=== PATIENT | male | born 1950 | race Caucasian/White ===

== ENCOUNTER → 2017-07-15 11:17 | Outpatient (CLI) | payer BC, SELFPAY ==
--- NOTE | 2017-07-15 11:53 | MR_ITS ---
MR lumbar spine wo con, MR 3-d myelogram/MRCP HISTORY: PT states low back pain X1 Month. Rt leg pain ITS.REASON: SCIATICA OF RT SIDE ORDERING PHYSICIAN: Rayray Pal MD PATIENT AGE: 66 years COMPARISON: X-RAY 07/11/12 TECHNIQUE: Standard multiplanar multiecho sequences are performed without contrast. 3-D MIP and myelographic images are also rendered and reviewed FINDINGS: There is normal alignment. The spinal cord ends at the L1-L2 level. There is mild degenerative disc disease at T11-T12 with a small right paracentral/foraminal disc protrusion causing mild right-sided foraminal and lateral recess narrowing. T12-L1, L1-L2, L2-L3, L3-L4 have an unremarkable appearance. L4-L5: Minimal bulging disc along with facet and ligamentum flavum hypertrophy with mild bilateral foraminal narrowing slightly greater on the left abutting the exiting L4 nerve root. L5-S1: Bulging disc with small broad-based central disc protrusion along with mild facet and ligamentum flavum hypertrophy with mild bilateral foraminal narrowing. No extruded herniated disc or canal stenosis. IMPRESSION: 1. There is mild degenerative disc disease at T11-T12 with a small right paracentral/foraminal disc protrusion causing mild right-sided foraminal and lateral recess narrowing 2. L4-L5: Minimal bulging disc along with facet and ligamentum flavum hypertrophy with mild bilateral foraminal narrowing slightly greater on the left abutting the exiting L4 nerve root. 3. L5-S1: Bulging disc with small broad-based central disc protrusion along with mild facet and ligamentum flavum hypertrophy with mild bilateral foraminal narrowing
== END ==
PROVIDERS: Family Provider Family Medicine; PCP Family Medicine; Visit Provider Family Medicine
DX: M54.31 Sciatica, right side (principal)
CPT/HCPCS: 72148; 76376

== ENCOUNTER → 2017-08-05 11:18 | Outpatient (POV) | payer BC, SELFPAY ==
[2017-08-05 11:29] VITALS: BP 141/87; PULSE 87; RESP 18; O2SAT 98
--- NOTE | 2017-08-05 13:27 | HMH.PMCON ---
Assessment and Plan (1) Sacroiliitis Current visit: Yes Status: Chronic Category: Medical Code(s): M46.1 - Sacroiliitis, not elsewhere classified - Assessment and plan all Dx Assessment and Plan for all problems:: We will plan a right SI joint injection for this patient. I believe given symptomology that this would be very beneficial. Patient's tried and failed steroids, anti-inflammatories, occasions along with physical therapy. We will schedule this in sequence insurance approval. Patient does not want to be on long-term medications. This note was dictated using voice recognition software and may contain errors or omissions HPI - Data of Consult Consult date: 08/05/17 Requesting Physician: Su Deleon APRN Primary Care Provider: Rayray Pal MD Family Provider: Julio Pal - Consult Narrative Reason for consult: SI joint pain History of present illness: Mr. De Jesus is a 67 year old male who presents today for consultation in regards to his right hip pain. Patient states that 7 weeks ago he was out chopping wood and began having extreme sharp pain over his right SI joint. Patient has tried and failed steroid pack. Patient also on gabapentin and tramadol this has not seemed to help him much. Patient does not want to take medication. Patient is interested in SI joint injection. I believe that this will be beneficial. CC: Su Deleon APRN [facility] History I have reviewed the patient's past medical history: Yes Medical History: Denies:: Diabetes Mellitus Type 1, Diabetes Mellitus Type 2 Other Medical History: Reports: Arthritis - *Social History Smoking Status: Current every day smoker Tobacco Type: cigarettes # Packs/Day (cigarettes): 2 Alcohol Intake: never Occupational Status: employed Housing: apartment - Psychiatric History Expresses thoughts of harming self/others: None Suicide Plan Description: No Plan *Family Hx:: Unable to obtain Review of Systems - Review of Systems ROS General: no recent weight change, no fever, no sleep disturbances Respiratory: no cough, no shortness of air, no recurring pulmonary infections Cardiovascular/Peripheral Vascular: No chest pain, No palpitations, no edema, no shortness of breath. Gastrointestinal: no incontinence, normal bowel movements reported Genitourinary: no incontinence Musculoskeletal: Right SI joint pain Psychiatric: normal mood/ affect Neurological: [denies weakness in extremities], [denies balance issues] Meds Home Medications Medication Instructions Recorded Confirmed Type Gabapentin [Gabapentin 300mg Cap] 300 mg PO TID 08/05/17 08/05/17 History Tramadol HCl [Ultram Take Home 50 mg PO Q6 08/05/17 08/05/17 History Pack 50mg (10)] Allergies Allergy/AdvReac Type Severity Reaction Status Date / Time benzocaine [BENZOCAINE] Allergy Mild Unverified 02/25/17 15:09 Objective Vital signs: Pulse Resp BP Pulse Ox 87 18 141/87 98 08/05/17 11:29 08/05/17 11:29 08/05/17 11:29 08/05/17 11:29 Narrative: Physical Exam General: Alert and oriented x3, no acute distress, pleasant and cooperative, [on room air] Lungs: Resps E/U, Symmetrical chest expansion, Eyes: PERRL Musculoskeletal: Flexion and extension of lumbar spine somewhat guarded secondary to pain, deep tendon reflexes normal, strength in upper and lower extremities [5/5], antalgic gait noted, positive Nicholas's test on the right side, extreme point tenderness over right SI joint Neurological: speech clear, inventory coordinator equal, no gross sensory deficits Opioid Risk Tool - Opioid Risk Tool-Male Family hx alcohol abuse: N Family hx illegal drugs: N Family hx rx drug abuse: N Personal hx alcohol abuse: N Personal hx illegal drugs: N Personal hx rx drug abuse: N Age: 45+ Hx of sexual abuse: N Mental health issues-ADD,OCD,Bipolar, etc: N
--- NOTE | 2017-08-05 13:38 | P.CONS_ITS ---
Assessment and Plan (1) Sacroiliitis Current visit: Yes Status: Chronic Category: Medical Code(s): M46.1 - Sacroiliitis, not elsewhere classified - Assessment and plan all Dx Assessment and Plan for all problems:: We will plan a right SI joint injection for this patient. I believe given symptomology that this would be very beneficial. Patient's tried and failed steroids, anti-inflammatories, occasions along with physical therapy. We will schedule this in sequence insurance approval. Patient does not want to be on long-term medications. This note was dictated using voice recognition software and may contain errors or omissions HPI - Data of Consult Consult date: 08/05/17 Requesting Physician: Su Deleon APRN Primary Care Provider: Rayray Pal MD Family Provider: Julio Pal - Consult Narrative Reason for consult: SI joint pain History of present illness: Mr. De Jesus is a 67 year old male who presents today for consultation in regards to his right hip pain. Patient states that 7 weeks ago he was out chopping wood and began having extreme sharp pain over his right SI joint. Patient has tried and failed steroid pack. Patient also on gabapentin and tramadol this has not seemed to help him much. Patient does not want to take medication. Patient is interested in SI joint injection. I believe that this will be beneficial. CC: Su Deleon APRN [facility] History I have reviewed the patient's past medical history: Yes Medical History: Denies:: Diabetes Mellitus Type 1, Diabetes Mellitus Type 2 Other Medical History: Reports: Arthritis - *Social History Smoking Status: Current every day smoker Tobacco Type: cigarettes # Packs/Day (cigarettes): 2 Alcohol Intake: never Occupational Status: employed Housing: apartment - Psychiatric History Expresses thoughts of harming self/others: None Suicide Plan Description: No Plan *Family Hx:: Unable to obtain Review of Systems - Review of Systems ROS General: no recent weight change, no fever, no sleep disturbances Respiratory: no cough, no shortness of air, no recurring pulmonary infections Cardiovascular/Peripheral Vascular: No chest pain, No palpitations, no edema, no shortness of breath. Gastrointestinal: no incontinence, normal bowel movements reported Genitourinary: no incontinence Musculoskeletal: Right SI joint pain Psychiatric: normal mood/ affect Neurological: [denies weakness in extremities], [denies balance issues] Meds Home Medications Medication Instructions Recorded Confirmed Type Gabapentin [Gabapentin 300mg Cap] 300 mg PO TID 08/05/17 08/05/17 History Tramadol HCl [Ultram Take Home 50 mg PO Q6 08/05/17 08/05/17 History Pack 50mg (10)] Allergies Allergy/AdvReac Type Severity Reaction Status Date / Time benzocaine [BENZOCAINE] Allergy Mild Unverified 02/25/17 15:09 Objective Vital signs: Pulse Resp BP Pulse Ox 87 18 141/87 98 08/05/17 11:29 08/05/17 11:29 08/05/17 11:29 08/05/17 11:29 Narrative: Physical Exam General: Alert and oriented x3, no acute distress, pleasant and cooperative, [ on room air] Lungs: Resps E/U, Symmetrical chest expansion, Eyes: PERRL Musculoskeletal: Flexion and extension of lumbar spine somewhat guarded secondary to pain, deep tendon reflexes nor
== END ==
PROVIDERS: Family Provider Family Medicine; PCP Family Medicine; Visit Provider Clinical Nurse Specialist Family Health
DX: M46.1 Sacroiliitis, not elsewhere classified (principal)
CPT/HCPCS: 99212

== ENCOUNTER → 2017-09-02 09:31 | Outpatient (POV) | payer BC, SELFPAY ==
[2017-09-02 09:41] VITALS: BP 104/74; PULSE 81; RESP 18; O2SAT 98; BMI 25.1
--- NOTE | 2017-09-02 10:01 | HMH.PAINSOAP ---
[facility] Pain Management SOAP Note Subjective:: Patient is a pleasant 67-year-old white male who presents today for follow-up after right SI joint injection. Patient rates his pain a 1 out of 10 today. He states he is doing very well. Patient has been going to the chiropractor along with doing stretching. Patient states that all of the pain over his right SI has dissipated. Patient states he is having some piriformis pain however that intermittent and tolerable. ROS General: no recent weight change, no fever, no sleep disturbances Respiratory: no cough, no shortness of air, no recurring pulmonary infections Cardiovascular/Peripheral Vascular: No chest pain, No palpitations, no edema, no shortness of breath. Gastrointestinal: no incontinence, normal bowel movements reported Genitourinary: no incontinence Musculoskeletal: Right SI joint pain Psychiatric: normal mood/ affect Neurological: [denies weakness in extremities], [denies balance issues] Objective:: Physical Exam General: Alert and oriented x3, no acute distress, pleasant and cooperative, [on room air] Lungs: Resps E/U, Symmetrical chest expansion, Eyes: PERRL Musculoskeletal: deep tendon reflexes normal, strength in upper and lower extremities [5/5], slightly antalgic gait noted Neurological: speech clear, treating and pumping supervisor equal, no gross sensory deficits Assessment:: Sacroiliitis Plan:: Follow-up with this patient on an as-needed basis. 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 This note was dictated using voice recognition software and may contain errors or omissions
--- NOTE | 2017-09-02 10:05 | P.CONS_ITS ---
[facility] Pain Management SOAP Note Subjective:: Patient is a pleasant 67-year-old white male who presents today for follow-up after right SI joint injection. Patient rates his pain a 1 out of 10 today. He states he is doing very well. Patient has been going to the chiropractor along with doing stretching. Patient states that all of the pain over his right SI has dissipated. Patient states he is having some piriformis pain however that intermittent and tolerable. ROS General: no recent weight change, no fever, no sleep disturbances Respiratory: no cough, no shortness of air, no recurring pulmonary infections Cardiovascular/Peripheral Vascular: No chest pain, No palpitations, no edema, no shortness of breath. Gastrointestinal: no incontinence, normal bowel movements reported Genitourinary: no incontinence Musculoskeletal: Right SI joint pain Psychiatric: normal mood/ affect Neurological: [denies weakness in extremities], [denies balance issues] Objective:: Physical Exam General: Alert and oriented x3, no acute distress, pleasant and cooperative, [ on room air] Lungs: Resps E/U, Symmetrical chest expansion, Eyes: PERRL Musculoskeletal: deep tendon reflexes normal, strength in upper and lower extremities [5/5], slightly antalgic gait noted Neurological: speech clear, copy coordinator equal, no gross sensory deficits Assessment:: Sacroiliitis Plan:: Follow-up with this patient on an as-needed basis. 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 This note was dictated using voice recognition software and may contain errors or omissions
== END ==
PROVIDERS: Family Provider Family Medicine; PCP Family Medicine; Visit Provider Clinical Nurse Specialist Family Health
DX: M46.1 Sacroiliitis, not elsewhere classified (principal)
CPT/HCPCS: 99212

== ENCOUNTER → 2018-08-13 13:14 | Outpatient (CLI) | payer BC, SELFPAY ==
--- NOTE | 2018-08-13 13:17 | CT_ITS ---
CT lung screening EXAM: CT LUNG LOW DOSE WO CONTRAST HISTORY: 80 pack-year smoking history, asymptomatic for lung cancer ITS.REASON: CURRENT TOBACCO USE ORDERING PHYSICIAN: Rayray Pal MD PATIENT AGE: 68 years COMPARISON: None TECHNIQUE: The exam was performed on a GE Light Speed [address] scanner using 2.90 mGy CTDI. A low dose helical CT CHEST was performed on a multi-detector scanner. All CT scans at the facility use one or more dose reduction, viz: automated exposure control, ma/kV adjustment per patient size (including targeted exams where dose is matched to indication, i.e. head), or iterative reconstruction technique. The LDCT was performed in a facility that meets the criteria for the screening program. Data regarding this exam was submitted to ACR which is an approved registry. The order for this exam indicates that it came as a result of a lung cancer screening counseling shard decision-making visit that included all the elements required of such a visit including smoking cessation. The radiologist interpreting this exam meets the [facility] criteria for the LDCT lung cancer screening program. The exam is reported using the Lung-RADS classification scale and reported to the ACR registry. NOTE: This study was performed for the specific purposes of lung cancer screening and is not an alternative to diagnostic chest CT. RADIATION DOSE: CTDI vol(CT dose Index-volume) = 2.90mG DLP (Dose Length Product) = 107.59 mGcm FINDINGS: Biapical fibrotic changes are present. There is COPD with centrilobular emphysema. There is an 9 x 8 mm somewhat irregular solid appearing nodule within the right lower lobe laterally axial image #50. There are few scattered small axillary lymph nodes measuring up to 2 x 1 cm on the right and 2.1 x 1.2 cm on the left. There is mild wedging involving T8 vertebral body which appears chronic. IMPRESSION: 1. Lung RADS Category: 4 a, mildly suspicious. 2. Other findings: COPD, centrilobular emphysema, scattered fibrotic change. Mild axillary adenopathy. RECOMMENDATIONS: Suggest short-term follow-up regarding the 9 x 8 mm nodule in the right lower lobe. Recommend PET/CT or diagnostic CT without and with contrast in 3 months.
== END ==
PROVIDERS: PCP Family Medicine; Visit Provider Family Medicine
DX: Z12.2 Encounter for screening for malignant neoplasm of respiratory organs (principal); Z87.891 Personal history of nicotine dependence

== ENCOUNTER → 2019-04-03 09:05 | Outpatient (CLI) | payer BC, SELFPAY ==
--- NOTE | 2019-04-03 09:13 | XR_ITS ---
PROCEDURE: XR KNEE RT 3V CLINICAL INDICATION: sprain of other ligament of right knee COMPARISON: No exams were available for comparison FINDINGS: No fracture or dislocation. No lytic or blastic change. There is normal mineralization. There is moderate medial compartment osteoarthritis. Other findings:There is mild soft tissue swelling over the medial knee. IMPRESSION: No acute bone findings. Medial osteoarthritis. Dictated by: Ike King 04/03/2019 11:30 Electronically signed by Ike King in [place] 04/03/2019 11:30
== END ==
PROVIDERS: PCP Psychiatry & Neurology Sleep Medicine; Visit Provider Psychiatry & Neurology Sleep Medicine
DX: S83.8X1A Sprain of other specified parts of right knee, initial encounter (principal)
CPT/HCPCS: 73562

== ENCOUNTER → 2019-08-04 10:20 | Outpatient (CLI) | payer BC, SELFPAY ==
[2019-08-04 11:32] LABS: Basophils % 0.6 % (0.1-2.0); Eosinophils # 0.3 K/mm3 (0.0-0.4); Eosinophils % 4.3 % (0.1-12.0); Hematocrit 42.6 % (42.0-52.0); Hemoglobin 14.4 g/dL (14.1-18.0); Lymphocytes % 34.1 % (10-50); Mean Corpuscular HGB Conc 33.9 g/dL (31.8-35.4); Mean Corpuscular Hemoglobin 33.4 pg (27.0-31.2); Mean Corpuscular Volume 98.7 fl (80-94); Mean Platelet Volume 8.2 fl (7.4-10.4); Monocytes # 0.5 K/mm3 (0.1-1.0); Monocytes % 7.8 % (1.7-9.3); Neutrophils # 3.2 K/mm3 (1.8-7.8); Neutrophils % 53.2 % (37.0-80.0); Platelet Count 262 K/mm3 (142-424); Red Blood Count 4.32 M/mm3 (4.60-6.20); Red Cell Distribution Width 13.3 % (11.5-17.5)
[2019-08-04 12:58] LABS: Alanine Aminotransferase 18 U/L (12-78); Albumin Level 4.5 g/dl (3.5-5.0); Albumin/Globulin Ratio 1.5 (1.1-1.8); Alkaline Phosphatase 84 U/L (38-126); Anion Gap 9.2 mEq/L (5-15); Aspartate Amino Transferase 29 U/L (17-59); Bilirubin,Total 0.6 mg/dl (0.2-1.3); Blood Urea Nitrogen 12 mg/dl (9-20); Calcium 9.7 mg/dl (8.4-10.2); Carbon Dioxide 26 mmol/L (22.0-30.0); Chloride 106 mmol/L (98-107); Estimated Glomerular Filt Rate 96 ml/min (>60); GFR (African American) 116 ML/MIN (>60); Glucose 72 mg/dl (74-100); Potassium 4.2 mmoL/L (3.5-5.1); Sodium 137 mmol/L (136-145); Total Protein,Serum 7.5 g/dl (6.3-8.2)
[2019-08-04 13:04] LABS: C-Reactive Protein 4.2 mg/L (0-4)
[2019-08-04 13:16] LABS: Hemoglobin A1C 5.1 % (4.0-6.0)
[2019-08-04 13:37] LABS: Erythrocyte Sedimentation Rate 25 mm/hr (0-20)
== END ==
PROVIDERS: Visit Provider Nurse Practitioner
DX: Z51.89 Encounter for other specified aftercare (principal); B35.1 Tinea unguium
CPT/HCPCS: 36415; 80053; 83036; 85025; 85651; 86140; 87102; 87206; 87220

== ENCOUNTER → 2021-08-23 10:56 | Outpatient (CLI) | payer MEDICARE, SELFPAY ==
--- NOTE | 2021-08-23 11:02 | XR_ITS ---
FINAL REPORT CLINICAL HISTORY: PUNCTURE WOUND OF RT GREAT TOE, NAIL WENT THROUGH TOE 3 DAYS AGO, REDNESS, SWELLING AND PAIN FINDINGS: TOES MINIMUM 2 VIEWS 3 views were obtained of the right toes. There is no acute fracture or dislocation. There is mild degenerative change. There is no acute soft tissue abnormality. No foreign body is identified. IMPRESSION: No acute bony abnormality. No foreign body identified. Reviewed, Interpreted and Dictated by Manuelito Glass III, MD Transcribed by Malika Michael Authenticated and [facility]
== END ==
PROVIDERS: PCP Family Medicine; Visit Provider Nurse Practitioner
DX: S91.131A Puncture wound without foreign body of right great toe without damage to nail, initial encounter (principal)
CPT/HCPCS: 73660

== ENCOUNTER → 2021-11-16 07:32 | Outpatient (CLI) | payer MEDICARE, SELFPAY ==
--- NOTE | 2021-11-16 07:38 | CT_ITS ---
FINAL REPORT CLINICAL HISTORY: H/O NICOTINE DEPENDENCE COMPARISON: 08/13/2018 FINDINGS: CTDI vol (mGy): 2.[address] images of the chest were obtained using the low-dose protocol for screening. There is no evidence of mediastinal or hilar mass or adenopathy. No axillary mass or adenopathy is identified. On the lung window images, scarring is seen, greatest at the lung apices. There are several stable, bilateral pulmonary nodules, including a nodule measuring up to 6 mm in the right lower. Other, smaller nodules are also unchanged. No coronary artery calcifications are noted. IMPRESSION: No change in bilateral pulmonary nodules. Lung RADS category 1 . Recommend 12 month followup low-dose CT for further evaluation. Reviewed, Interpreted and Dictated by Manuelito Glass III, MD Transcribed by Yue Marshall Authenticated and . [facility]
--- NOTE | 2021-11-16 07:38 | US_ITS ---
FINAL REPORT CLINICAL HISTORY: AAA screening, hypertension FINDINGS: Limited sonographic images were obtained of the abdomen to evaluate the abdominal aorta and iliac arteries. The abdominal aorta measures up to 2.1 cm in greatest dimension. The iliac arteries are within normal limits. IMPRESSION: No evidence of abdominal aortic aneurysm. Reviewed, Interpreted and Dictated by Manuelito Glass III, MD Transcribed by Yue Marshall Authenticated and [facility]
== END ==
PROVIDERS: PCP Family Medicine; Visit Provider Family Medicine
DX: Z87.891 Personal history of nicotine dependence (principal); Z12.2 Encounter for screening for malignant neoplasm of respiratory organs; Z13.6 Encounter for screening for cardiovascular disorders
CPT/HCPCS: 71271; 76770

== ENCOUNTER → 2021-12-03 06:20 | Outpatient (CLI) | payer MEDICARE, SELFPAY | PROVIDERS: PCP Nurse Practitioner; Visit Provider Nurse Practitioner | DX: L02.212 Cutaneous abscess of back [any part, except buttock and flank] (principal); L03.312 Cellulitis of back [any part except buttock and flank]; B95.7 Other staphylococcus as the cause of diseases classified elsewhere | CPT/HCPCS: 87070; 87186; 87205 ==

== ENCOUNTER → 2023-02-13 19:31 | Outpatient (CLI) | payer MEDICARE, SELFPAY ==
[2023-02-13 19:59] LABS: Basophils # 0.1 K/mm3 (0-0.2); Eosinophils # 0.1 K/mm3 (0.0-0.4); Eosinophils % 1.1 % (0.1-12.0); Hematocrit 44.8 % (42.0-52.0); Hemoglobin 14.9 g/dL (14.1-18.0); Lymphocytes # 1.8 K/mm3 (0.7-4.5); Lymphocytes % 29.3 % (10-50); Mean Corpuscular HGB Conc 33.3 g/dL (31.8-35.4); Mean Corpuscular Hemoglobin 34.5 pg (27.0-31.2); Mean Corpuscular Volume 103.8 fl (80-94); Mean Platelet Volume 10.1 fl (7.4-10.4); Monocytes # 0.5 K/mm3 (0.1-1.0); Monocytes % 7.8 % (1.7-9.3); Neutrophils # 3.7 K/mm3 (1.8-7.8); Neutrophils % 60.8 % (37.0-80.0); Platelet Count 304 K/mm3 (142-424); Red Blood Count 4.32 M/mm3 (4.60-6.20); Red Cell Distribution Width 13.1 % (11.5-17.5); White Blood Count 6.2 K/mm3 (4.8-10.8)
[2023-02-13 21:16] LABS: Cholesterol 193 mg/dl (140-200); HDL Cholesterol 97 mg/dl (40-60); Triglycerides 52 mg/dl (30-150); VLDL Cholesterol 10 mg/dL (0-40)
[2023-02-13 21:27] LABS: C-Reactive Protein 1.6 mg/L (0-4); Direct LDL Cholesterol 91.75 mg/dL (100-129)
[2023-02-13 21:48] LABS: Prostate Specific Ag Screen 0.3 ng/ml (0.0-4.0); Thyroid Stimulating Hormone 2.45 uIU/mL (0.465-4.68)
[2023-02-13 22:06] LABS: Hemoglobin A1C 5.4 % (4.0-6.0)
== END ==
PROVIDERS: PCP Nurse Practitioner; Visit Provider Nurse Practitioner
DX: E78.5 Hyperlipidemia, unspecified (principal); J44.9 Chronic obstructive pulmonary disease, unspecified; M19.90 Unspecified osteoarthritis, unspecified site; Z12.5 Encounter for screening for malignant neoplasm of prostate; Z79.899 Other long term (current) drug therapy
CPT/HCPCS: 80061; 83036; 84443; 85025; 86140; G0103

== ENCOUNTER → 2023-02-14 09:03 | Outpatient (CLI) | payer MEDICARE, SELFPAY ==
[2023-02-14 21:02] LABS: Creatinine,Urine Random 41 mg/dL (Not Estab.); Microalbumin < 6.000 mg/L (0-16.7)
== END ==
PROVIDERS: PCP Nurse Practitioner; Visit Provider Nurse Practitioner
DX: E78.5 Hyperlipidemia, unspecified (principal); J44.9 Chronic obstructive pulmonary disease, unspecified; M19.90 Unspecified osteoarthritis, unspecified site; Z72.0 Tobacco use
CPT/HCPCS: 82043; 82570

== ENCOUNTER → 2023-02-21 15:10 | Outpatient (CLI) | payer MEDICARE, SELFPAY ==
--- NOTE | 2023-02-21 15:10 | CT_ITS ---
FINAL REPORT TECHNIQUE: Axial CT images of the chest were obtained without contrast. Low-dose protocol was utilized. This study was performed with techniques to keep radiation doses as low as reasonably achievable (ALARA). Individualized dose reduction techniques using automated exposure control or adjustment of mA and/or kV according to the patient's size were employed. CLINICAL HISTORY: lung cancer screening smoker, 3 ppd x 40 years COMPARISON: 11/16/2021 FINDINGS: CT CHEST WITHOUT, LOW DOSE SCREENING CT Di Vol: 2.90 mGy DLP: 109.42 mGy*cm There is no axillary, mediastinal, or hilar adenopathy. The heart size is normal. There is no pleural or pericardial effusion. The lung windows show a stable nodule in the periphery of the right lower lobe best seen on image 50 of series 3. There is a tiny nodule in the periphery of the right upper lobe measuring 2 mm best seen on image 38 of series 3.. There is biapical pleural and parenchymal scarring. Scarring is noted at the lung bases. Nodular density previously noted in the posterior right upper lobe is less well-seen on today's exam. Limited images of the upper abdomen demonstrate no acute findings. IMPRESSION: Stable nodules in the periphery of the right upper lobe and right lower lobe. Biapical pleural-parenchymal scarring. LR Category 1: 12 month follow-up low-dose chest CT is recommended. Reviewed, Interpreted and Dictated by Jim Gutierrez MD Transcribed by Renee Elias Authenticated and . [facility]
== END ==
PROVIDERS: PCP Nurse Practitioner; Visit Provider Nurse Practitioner
DX: F17.210 Nicotine dependence, cigarettes, uncomplicated (principal); R91.1 Solitary pulmonary nodule; Z12.2 Encounter for screening for malignant neoplasm of respiratory organs
CPT/HCPCS: 71271

== ENCOUNTER 2023-08-25 10:10 | Outpatient (CLI) | payer MEDICARE, SELFPAY ==
--- NOTE | 2023-08-25 10:16 | XR_ITS ---
FINAL REPORT CLINICAL HISTORY: right low back pain COMPARISON: None FINDINGS: No fracture is identified. Disc spaces are well-preserved. Alignment is normal. Mild facet arthropathy is present. IMPRESSION: Mild lumbar facet arthropathy, no acute bony abnormality identified. Reviewed, Interpreted and Dictated by Rayray Espitia MD Transcribed by Elisa Dumont Authenticated and [facility]
--- NOTE | 2023-08-25 10:16 | XR_ITS ---
FINAL REPORT TECHNIQUE: 1 view CLINICAL HISTORY: right low back pain FINDINGS: Examination shows moderate amount of stool throughout the colon. There is no evidence of mechanical bowel obstruction. There is a small metallic density overlying the right bony pelvis, that may represent artifact. No obvious free air is seen. IMPRESSION: Stool-filled colon as above Reviewed, Interpreted and Dictated by Rayray Espitia MD Transcribed by Elisa Dumont Authenticated and [facility]
== END 2023-08-25 23:59 | disposition home or self-care (01) ==
LOC: LAB 10:11
PROVIDERS: PCP Family Medicine; Visit Provider Nurse Practitioner
DX: M54.50 Low back pain, unspecified (principal); M62.830 Muscle spasm of back; R82.79 Other abnormal findings on microbiological examination of urine
CPT/HCPCS: 72100; 74018; 87086

== ENCOUNTER 2023-09-18 07:33 | Outpatient (CLI) | payer MEDICARE, SELFPAY ==
--- NOTE | 2023-09-18 07:34 | US_ITS ---
FINAL REPORT CLINICAL HISTORY: distended abd COMPARISON: None FINDINGS: RENAL ULTRASOUND Ultrasound images of the kidneys were obtained. Limited images of the liver parenchyma demonstrates normal echogenicity. Spleen measures 9.6 cm. The right kidney measures 12.1 cm in length. It is normal echogenicity. There is no hydronephrosis. The left kidney measures 12.1 cm in length. It is normal echogenicity. There is no hydronephrosis. IMPRESSION: Normal renal ultrasound. Reviewed, Interpreted and Dictated by Manuelito Glass III, MD Transcribed by Renee Elias Authenticated and [facility]
--- NOTE | 2023-09-18 07:34 | US_ITS ---
FINAL REPORT CLINICAL HISTORY: Right upper quadrant pain COMPARISON: None FINDINGS: Sonographic images of the right upper quadrant were obtained. The pancreas is partially obscured.The liver has an unremarkable appearance.The gallbladder appears normal without evidence of gallstones.There is no evidence of biliary ductal dilatation.The common duct measures 4mm. Limited images of the right kidney are unremarkable. IMPRESSION: Unremarkable right upper quadrant ultrasound. Reviewed, Interpreted and Dictated by Manuelito Glass III, MD Transcribed by Renee Elias Authenticated and . [facility]
== END 2023-09-18 23:59 | disposition home or self-care (01) ==
LOC: RAD 07:34
PROVIDERS: PCP Family Medicine; Visit Provider Family Medicine
DX: M54.9 Dorsalgia, unspecified (principal)
CPT/HCPCS: 76705; 76770

== ENCOUNTER 2023-10-22 08:00 | Outpatient (RCR) | payer MEDICARE, SELFPAY ==
--- NOTE | 2023-09-29 09:38 | HMH.PTOPEV ---
PT Outpatient Evaluation Rehab PT Outpatient Evaluation Start: 09/29/23 09:04 Freq: Status: Active Protocol: Document 09/29/23 09:05 MACARENA (Rec: 09/29/23 09:37 MACARENA [id number]) E-signed By Tish Villegas, PT Outpatient Therapy Subjective History Subjective History Pt is a 73 y/o male who reports onset of right-sided low back pain ~6 weeks ago after repetitive lifting of power generators. Pt reports pain is localized to the right low back and is worse in the morning time. Pt reports pain often wakes him up at night and impairs his sleep. Pt states he gets a tingling sensation of the right low back in the morning that improves throughout the day. Pt denies distal symptoms/ paresthesia or b/b dysfunction . Pt reports he had a lumbar spine xray on 08/25/23 with impression of Mild lumbar facet arthropathy, no acute bony abnormality identified. Pt also reports he had an ultrasound of his kindeys and gallbladder without significant findings. Pt reports he was prescribed muscle relaxers, pain killers and steroids. Pt reports no change in pain/symptoms since onset. Pt reports he now only uses heat and prescribed Ibuprofen which help symptoms minimally. Pt also reports pain improves with walking and standing. Pt reports history of low back surgery years ago to remove a bone spur. Pt denies further comorbidities to report. Occupation: contractor/ control equipment electrician Core strength: 4-/5 New diagnosis of cancer in past 12 No months? Chief Complaint Pain Symptom Type Ache,Sharp,Dull,Tingling Symptoms Relieved By Rest/Positioning,Heat, Prescription Meds Symptoms Aggravated By Sitting,Bending/Stooping, Lifting Prior Functional Limitations None Current Functional Limitations Lifting,Sleeping,Sitting, Recreation Activity,Bending/ Stooping Symptom Description Constant but Variable Level of pain today (0-10) 4 Pain scale - at its best (0-10) 2 Pain scale - at its worst (0-10) 8 Lumbopelvic Eval Posture Lumbar Spine Posture Standing Position Decreased Lordosis Palapation tenderness right lumbar spinal tenderness Yes: L3-4 paraspinal tenderness Yes buttock tenderness Yes: piriformis Lumbar/Sacral Palpation Findings Tenderness Lumbar/Sacral Palpation Overall Comment 2/3 TTP of R QL Accessory Movement L-spine Vertebrae Accessory Movements Central P/A [place],Right P/A that Elicit Symptoms [place] L3 bilateral L4 bilateral Range of Motion Lumbar Spine Active Flexion Range of 50 Motion (degrees) Lumbar Spine Active Extension Range of 25 Motion (degrees) Left Lumbar Spine Lateral Flexion Active 15 Range of Motion (degrees) Right Lumbar Spine Lateral Flexion 20 Active Range of Motion (degrees) Manual Muscle Test Right Knee Extension Strength Grade 5 Normal Knee Flexion Strength Grade 5 Normal Hip Flexion Strength Grade 5 Normal Hip Abduction Strength Grade 4 Good Hip Adduction Strength Grade 4 Good Hip Extension Strength Grade 4 Good Ankle Dorsiflexion Strength Grade 5 Normal Altered Sensation Bilateral Comment equal and intact to light touch sensation bilaterally Special Tests Hip Ashish (DANIELLA) Test Positive Right Sciatic Nerve Tension Test Negative Right Unilateral Straight Leg Raise (Lasegue) Negative Right Test Oswestry Index Section 1 Pain Intensity The pain comes and goes and is severe Section 2 Personal Care (Washing,Dresing) my way of washing or dressing even though it causes some pain Section 3 Lifting I can only lift very light weights at most Section 4 Walking I cannot walk more than 1/2 mile without increasing pain Section 5 Sitting Pain prevents me from sitting for more than one hour Section 6 Standing I can stand as long as I want without pain Section 7 Sleeping Because of my pain, my normal night's sleep is less than 6 hours sleep Section 8 Social Life Pain has restricted my social life and I do not go out often Section 9 Traveling Pain restricts me to short necessary journeys under 30 minutes Section 10 Changing Degreee of Pain My pain is neither getting better or worse Score and Risk Level Oswestry Sc 27 Oswestry Risk Level Severe Disability Outpatient Therapy Assessment Impairments Problems/Impairmments Palpation Tenderness,Impaired Range of Motion,Impaired Strength,Impaired Sitting, Impaired Lifting,Impaired Bending,Impaired Work Activities,Subjective C/O Pain ,Impaired Self Care/Self Management Prognosis Rehab Potential Good Clinical Impression Consistent with Diagnosis Yes Short Term Goals Number of Weeks 3 Increase Range of Motion Yes: Improve lumbar flexion AROM to at least 60 Improve Ability to Dress Self Yes: report ability to don R shoe with pain 6/10 or less Decrease Subjective C/O Pain Yes: Improve pain at worst to 6/10 to improve overall QOL Improve Self Care/Self Management Yes Patient to be Ind w/ HEP Yes [employer] Eng[employer]ver Goals Number of Weeks 6 Decreased Palpation Tenderness Yes Increase Range of Motion Yes: Improve lumbar AROM flexion to at least 80, LF to 20-25 Increase Strength Yes: Improve hip/core strength to 4-4+/5 grossly to assist with function Restore Ability to Lift Objects to Waist Yes: demonstrate proper Level mechanics to assist with occupation & prevent reinjury Improve Tolerance to Work Activities Yes Improve Oswestry Score Yes: Improve score to 20 or less to improve overall QOL Decrease Subjective C/O Pain Yes: Improve pain at worst to 4/10 to improve overall QOL Outpatient Therapy Plan of Care Treatment Plan May Include Therapeutic Exercise Including Home Yes Exercise Program Manual Therapy Techniques Yes Neuromuscular Re-education Yes Therapeutic Activities to Return to Yes Previous Functional/Work Level ADL/Self Care Education Yes Mechanical Traction Yes Dry Needling Yes Thermal Modalities Yes Electrical Stimulation Yes Ultrasound/Phonophoresis Yes Iontophoresis Yes Massage Yes Group Therapy for Medicare Yes Eval/Re-Eval Yes Frequency Times per week 2 Duration Number of Weeks 4-6 Addendums This patient is a candidate for social No or vocational rehab? Patient/Guardian verbally acknowledges Yes understanding of treatment program and consents to further treatment? Patient/Guardian verbally acknowledges Yes understanding of diagnosis, prognosis and goals for treatment? Eval Complexity PT Charges 27733 - Low Complexity Shoulder/Elbow Eval Shoulder Objective Measurements Elbow Objective Measurements PHYSICIAN CERTIFICATION: I certify the specified therapy services for Hardy De Jesus are required, authorized, and reviewed every 30 days.
== END 2023-10-22 08:05 | disposition home or self-care (01) ==
LOC: PT 08:00
PROVIDERS: Visit Provider Family Medicine
DX: M54.9 Dorsalgia, unspecified (principal)
CPT/HCPCS: 20560; 97014; 97035; 97110; 97140; 97163; G0283

== ENCOUNTER 2023-11-25 06:52 | Outpatient (CLI) | payer MEDICARE, SELFPAY ==
--- NOTE | 2023-11-25 07:34 | MR_ITS ---
FINAL REPORT CLINICAL HISTORY: back pain with radiculopathy. right sided back pain. right leg numbness and burning COMPARISON: None FINDINGS: Multiplanar MR imaging of the lumbar spine was performed without and with contrast. On the sagittal T2-weighted images, mild decreased signal is seen throughout the lumbar discs. The vertebral alignment is normal. The vertebrae are normal in height. L1-2: No significant canal stenosis or neuroforaminal narrowing is seen. L2-3: No significant canal stenosis or neuroforaminal narrowing is seen. L3-4: Mild diffuse disc bulge. Moderate right and mild left neuroforaminal narrowing. L4-5: Moderate diffuse disc bulge. Bilateral facet hypertrophy. Moderate to high-grade bilateral neuroforaminal narrowing. L5-S1: No significant canal stenosis or neuroforaminal narrowing is seen. No abnormal contrast enhancement is identified. IMPRESSION: Multilevel mild degenerative disc disease as described. Neuroforaminal compromise most evident on the right at L3-4 and bilaterally at L4-5. Reviewed, Interpreted and Dictated by Jim Gutierrez MD Transcribed by Renee Elias Authenticated and [facility]
--- NOTE | 2023-11-25 07:34 | MR_ITS ---
FINAL REPORT CLINICAL HISTORY: back pain with radiculopathy. right sided back pain. right leg numbness and burning COMPARISON: None FINDINGS: Multiplanar MR imaging of the thoracic spine was performed without and with contrast. On the sagittal T2-weighted images, there is abnormal decreased signal throughout the thoracic disks. There is mild loss of height at T7 and T8. There is no evidence of marrow edema. There is no malalignment. The thoracic cord demonstrates normal signal and configuration. There is no evidence of significant canal stenosis. On the axial images, T7-8 mild diffuse disc bulge is noted. There is no significant spinal canal narrowing at this level. At T8-9, there is minimal midline disc protrusion with mild spinal canal compromise best seen on image 7 of series 9. At T11-12, there is mild to moderate disc bulge and right paracentral protrusion with mild compromise of the right side of the spinal canal. There is no marrow edema. On the postcontrast images, no abnormal contrast enhancement is identified. IMPRESSION: Multilevel degenerative disc disease as described. Loss of height at T7-8 without marrow edema, favored to be chronic. No abnormal contrast-enhancement identified. Reviewed, Interpreted and Dictated by Jim Gutierrez MD Transcribed by Renee Elias Authenticated and [facility]
[2023-11-25 07:55] LABS: Blood Urea Nitrogen 8 mg/dl (9-20); Estimated Glomerular Filt Rate 111 ml/min (>60); GFR (African American) 134 ML/MIN (>60)
[2023-11-25] MEDS: SODIUM CHLORIDE 0.9% 10ML SYR (RAD ONLY) 10 ML IV (09:09)
[2023-11-25] MEDS: GADOTERIDOL INJ 20ML SYRINGE 17 ML IV (09:09)
== END 2023-11-25 23:59 | disposition home or self-care (01) ==
LOC: RAD 06:53
PROVIDERS: PCP Family Medicine; Visit Provider Family Medicine
DX: M54.9 Dorsalgia, unspecified (principal); Z96.7 Presence of other bone and tendon implants
CPT/HCPCS: 72157; 72158; 82565; 84520; A9576

== ENCOUNTER 2024-01-05 09:45 | Outpatient (POV) | payer MEDICARE, SELFPAY ==
[2024-01-05 09:55] VITALS: BP 152/75; PULSE 74; RESP 18; O2SAT 97; BMI 57.5
--- NOTE | 2024-01-05 10:25 | A.OFFVIS_ITS ---
HPI Data of Consult Patient: new to practice Consult date: 01/05/24 Requesting Physician: Tish Naranjo APRN Primary Care Provider: Rayray Pal MD Consult Narrative Reason for consult: Low back pain, right hip pain, right buttocks and upper thigh pain History of present illness: Mr. De Jesus is a 73 year old male who presents today as a new patient. He is a referral from [facility] physician group. Today he rates his pain a 5 out of 10. Patient states he has chronic pain throughout his low back however this pain he has been experiencing has been going on since July unrelated to any specific trauma or injury. He describes it as a sharp burning, tingling sensation that does interfere with his ability perform activities of daily living such as cooking and cleaning. He does state bending over seems to aggravate it as well as laying down or doing certain activities like mowing or d riving. Patient states he has tried ibuprofen along with Percocet with minimal relief. Patient has also tried heat ice and topicals. Patient states that he does have a vibrating heat pad that does help and provide temporary relief. Patient did do physical therapy and chiropractor therapy with no additional improvement. Patient has had a prior history of back surgery with Dr. Husain about 6 years ago and he is scheduled for a follow-up coming up on 18 January. Patient does state he was a prior patient of ours in the past but it has been years.Patient is currently managed with oxycodone 5 mg from his PCP. His Antoine has been reviewed and is appropriate. CC: Tish Naranjo APRN [facility] Disclaimer: The information contained in this section may have been updated after the patient was seen, as this information can be updated by other users. Medical History (Updated 01/05/24 @ 10:28 by Tish Naranjo APRN) Lumbar disc disease with radiculopathy Thoracic degenerative disc disease Presence of orthopedic implant of forearm Leg length discrepancy Right-sided back pain Osteoarthritis COPD (chronic obstructive pulmonary disease) Hyperlipidemia Pulmonary nodule Cigarette nicotine dependence Encounter for smoking cessation counseling COPD exacerbation Surgical History History of surgery on arm Previous back surgery Social History (Updated 01/05/24 @ 10:12 by Preeti Nguyen RN) Smoking Status: Current every day smoker tobacco type: cigarettes packs per day: 2 second hand exposure: Yes alcohol intake: current alcohol intake frequency: 0-2 drinks per day current occupational status: employed Travel in the last 8 weeks: None household members: spouse housing: apartment current occupational exposures/hazards: Yes caffeine: Yes Review of Systems Review of Systems Review of systems:: pertinent systems reviewed and negative unless documented below Review of systems (narrative): Review of Systems: General: No recent weight changes, no fever, no sleep disturbances Respiratory: No cough, no shortness of air, no recurring pulmonary infections Cardiovascular/peripheral vascular: No chest pain, no palpitations, no edema, no shortness of breath Gastrointestinal: No new onset incontinence, normal bowel movements reported Genitourinary: No new onset incontinence Musculoskeletal: Low back pain, right hip pain, right buttocks pain, right upper thigh pain Psychiatric: [Normal mood/affect] Neurological: [Denies weakness in extremities], [denies balance issues] Meds Home Medications and Allergies Home Medications ?Medication ?Instructions ?Recorded ?Confirmed ?Type loratadine 10 mg tablet (Claritin) 10 mg PO DAILY 09/08/19 01/05/24 History albuterol sulfate 90 mcg/actuation 2 puff inhalation Q4-6H PRN 01/06/23 01/05/24 Rx aerosol inhaler shortness of breath or wheezing #8.5 grams fluticasone fur. 100 mcg-umeclid See Rx Instructions .Route 03/20/23 01/05/24 Rx 62.5 mcg-vilant 25 mcg .COMPLEX #180 blisters inhalat.powder (Trelegy Ellipta) rosuvastatin 10 mg tablet See Rx Instructions .Route 05/07/23 01/05/24 Rx .COMPLEX #90 tabs ibuprofen 800 mg tablet 800 mg PO Q8H PRN pain #90 tabs 11/17/23 01/05/24 Rx oxycodone 5 mg tablet 5 mg PO TID PRN pain #40 tabs 12/09/23 01/05/24 Rx New Prescriptions to Start Prescriptions: Allergies Allergy/AdvReac Type Severity Reaction Status Date / Time bacitracin Allergy Mild Rash Verified 12/09/23 10:27 [From Neosporin ([id number])] benzocaine [BENZOCAINE] Allergy Mild Verified 12/09/23 10:27 neomycin Allergy Mild Rash Verified 12/09/23 10:27 [From Neosporin ([id number])] polymyxin B Allergy Mild Rash Verified 12/09/23 10:27 [From Neosporin ([id number])] gabapentin Allergy Intermediate Hives Uncoded 12/09/23 10:27 Objective Vital signs: Pulse Resp BP Pulse Ox O2 Del Method 74 18 152/75 H 97 Room Air 01/05/24 09:55 01/05/24 09:55 01/05/24 09:55 01/05/24 09:55 01/05/24 09:55 Narrative: Physical Exam: General: Alert and oriented x3, no acute distress, pleasant and cooperative Lungs: Respirations even and unlabored, symmetrical chest expansion Eyes: PERRL Musculoskeletal: Flexion and extension of lumbar [spine] somewhat guarded secondary to pain, [antalgic gait noted] point tenderness along right SI with positive right Nicholas's, Skip's, Gaenslen's, compression and distraction exam Neurological: Speech clear, no gross sensory deficit Additional findings Additional findings: FINDINGS: Multiplanar MR imaging of the thoracic spine was performed without and with contrast. On the sagittal T2-weighted images, there is abnormal decreased signal throughout the thoracic disks. There is mild loss of height at T7 and T8. There is no evidence of marrow edema. There is no malalignment. The thoracic cord demonstrates normal signal and configuration. There is no evidence of significant canal stenosis. On the axial images, T7-8 mild diffuse disc bulge is noted. There is no significant spinal canal narrowing at this level. At T8-9, there is minimal midline disc protrusion with mild spinal canal compromise best seen on image 7 of series 9. At T11-12, there is mild to moderate disc bulge and right paracentral protrusion with mild compromise of the right side of the spinal canal. There is no marrow edema. On the postcontrast images, no abnormal contrast enhancement is identified. IMPRESSION: Multilevel degenerative disc disease as described. Loss of height at T7-8 without marrow edema, favored to be chronic. No abnormal contrast-enhancement identified. Reviewed, Interpreted and Dictated by Jim Gutierrez MD Transcribed by Renee Elias Authenticated and [facility] Assessment and Plan *Assessment and plan (1) Sacroiliitis: Status: Chronic Category: Medical Code(s): M46.1 - Sacroiliitis, not elsewhere classified (2) Degenerative disc disease, lumbar: Status: Acute Category: Medical Code(s): M51.369 - Other intervertebral disc degeneration, lumbar region without mention of lumbar back pain or lower extremity pain Plan patient is experiencing significant pain in his low back and right hip with limited range of motion. Patient did have point tenderness on his right SI with a positive right Nicholas's, Skip's, Gaenslen's, compression and distraction exa m. I did discuss with the patient that he may benefit from a right SI injection. Patient was reviewed over risk and benefits and he would like to proceed forward with this plan of care. 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 We will continue to follow-up on this in future. Patient will be scheduled for a right SI injection under fluoroscopy. He has tried and failed conservative therapy including physical therapy, chiropractor therapy and continued at home stretching exercise for longer than 12 weeks.\ Patient has been instructed to contact the clinic with any concerns before the next appointment. Dr. Longo has reviewed this note and agrees with this plan of care. This note was dictated using voice recognition software and make contain errors or omissions. All injections are used with Lidocaine or Bupivacaine and Depo Medrol.
== END 2024-01-05 23:59 | disposition home or self-care (01) ==
LOC: SC.PAIN 09:45
PROVIDERS: PCP Family Medicine; Visit Provider Nurse Practitioner Family
DX: M46.1 Sacroiliitis, not elsewhere classified (principal); M51.369 Other intervertebral disc degeneration, lumbar region without mention of lumbar back pain or lower extremity pain; Z73.89 Other problems related to life management difficulty; F17.210 Nicotine dependence, cigarettes, uncomplicated
CPT/HCPCS: 99202; G0463

== ENCOUNTER 2024-02-17 10:56 | Day surgery (SDC) | payer MEDICARE, SELFPAY ==
[2024-02-17 11:26] VITALS: BP 146/67; PULSE 92; RESP 16; TEMP 36.5; O2SAT 97; BMI 26.1
[2024-02-17 11:33] VITALS: BP 157/86; PULSE 73; RESP 18; O2SAT 97
[2024-02-17] MEDS: LIDOCAINE 1% 5ML PF VIAL 5 ML (11:33)
--- NOTE | 2024-02-17 11:35 | EXP.PAIN.PRO ---
Procedure Date: 02/17/24 Time: 11:20 Anesthesiologist:: Ashish Dillon CRNA Complications:: None Pre-procedure Diagnosis:: Degenerative disc lumbar spine multilevels. Lumbar radiculopathy. Lumbar disc bulge L4-5, 5 S1. Lumbar postlaminectomy syndrome. Post-procedure Diagnosis:: Same. Indications for Procedure:: Patient is a pleasant 73-year-old male who comes our clinic today for a right transforaminal L4-5 lumbar epidural steroid injection. Patient describes low lumbar back pain is constant, dull, aching. Also, right hip and leg radicular symptoms. Patient's lumbar MRI shows L4-5 disc bulge with right foraminal stenosis. Patient is status post 5 S1 discectomy in the past. Procedure Details:: Details of the procedure explained to the patient. The patient taken procedure room placed in the prone position on the fluoroscopy table. The low back was cleaned using chlorhexidine as a cleansing solution. Using fluoroscopy guidance a 22-gauge 3-1/2 inch spinal needle was used to access the upper one third of the right L4-5 foramen. Needle position was confirmed using 0.2 mL of contrast dye visualized with fluoroscopy and a lateral position. After negative aspiration 1 cc of 1% lidocaine and 40 mg of Depo-Medrol was injected. Patient tolerated procedure without difficulty. There are no complications. Plan and Disposition:: Patient was discharged without incident.
[2024-02-17 11:37] VITALS: BP 157/86; PULSE 73; RESP 18; O2SAT 97
[2024-02-17 11:38] VITALS: BP 137/63; PULSE 77; RESP 16; TEMP 36.6; O2SAT 96
== END 2024-02-17 11:38 | disposition home or self-care (01) ==
PROVIDERS: PCP Family Medicine; Visit Provider Nurse Anesthetist, Certified Registered
DX: M51.16 Intervertebral disc disorders with radiculopathy, lumbar region (principal); M96.1 Postlaminectomy syndrome, not elsewhere classified
CPT/HCPCS: 64483; J1010

== ENCOUNTER 2024-03-25 14:27 | Outpatient (POV) | payer MEDICARE, SELFPAY ==
[2024-03-25 14:38] VITALS: BP 123/87; PULSE 89; RESP 18; O2SAT 95; BMI 26.5
--- NOTE | 2024-03-25 14:40 | A.OFFVIS_ITS ---
[facility] Disclaimer: The information contained in this section may have been updated after the patient was seen, as this information can be updated by other users. Medical History Lumbar disc disease with radiculopathy Thoracic degenerative disc disease Presence of orthopedic implant of forearm Leg length discrepancy Right-sided back pain Osteoarthritis COPD (chronic obstructive pulmonary disease) Hyperlipidemia Pulmonary nodule Cigarette nicotine dependence Encounter for smoking cessation counseling COPD exacerbation Surgical History History of surgery on arm Previous back surgery Social History Smoking Status: Current every day smoker tobacco type: cigarettes packs per day: 2 second hand exposure: Yes alcohol intake: current alcohol intake frequency: 0-2 drinks per day current occupational status: employed Travel in the last 8 weeks: None household members: spouse housing: apartment current occupational exposures/hazards: Yes caffeine: Yes PM Subjective & Objective Subjective Subjective:: Patient is a pleasant 73-year-old male who presents today for follow-up of right transforaminal epidural steroid injection L4-L5 on 02/17/2024. Today he rates his pain a 1 out of 10. Patient denies any new trauma or injury. He states he has had at least 80% improvement following this injection. He does state that he is been able to do much more activity with overall decreased pain. He states he has been able to completely bend down and pick things up off the ground as well as his right leg is no longer numb. He states he feels like he does have all his feeling back. Patient states that he is starting to feel a little bit more pain in the low back however it is very manageable. Patient is scheduled to follow-up with Dr. Husain coming up. He states that the plan was if he did get significant improvement following the injection that they would possibly proceed forward with surgery to remove the bone spurs. His Antoine has been reviewed and is appropriate. Review of Systems: General: No recent weight changes, no fever, no sleep disturbances Respiratory: No cough, no shortness of air, no recurring pulmonary infections Cardiovascular/peripheral vascular: No chest pain, no palpitations, no edema, no shortness of breath Gastrointestinal: No new onset incontinence, normal bowel movements reported Genitourinary: No new onset incontinence Musculoskeletal: Low back pain Psychiatric: [Normal mood/affect] Neurological: [Denies weakness in extremities], [denies balance issues] Pain at rest (0-10 scale): 1 Objective Objective:: Physical Exam: General: Alert and oriented x3, no acute distress, pleasant and cooperative Lungs: Respirations even and unlabored, symmetrical chest expansion Eyes: PERRL Musculoskeletal: Flexion and extension of lumbar [spine] somewhat guarded secondary to pain, [antalgic gait noted] Neurological: Speech clear, no gross sensory deficit Has patient had previous pain injection?: Yes Percent improvement in pain since last injection: 80% Conservative treatment options previously tried: Home exercise plan Length of treatment: Longer than 12 weeks Meds Home Medications and Allergies Home Medications ?Medication ?Instructions ?Recorded ?Confirmed ?Type loratadine 10 mg tablet (Claritin) 10 mg PO DAILY 09/08/19 03/25/24 History albuterol sulfate 90 mcg/actuation 2 puff inhalation Q4-6H PRN 01/06/23 03/25/24 Rx aerosol inhaler shortness of breath or wheezing #8.5 grams oxycodone 5 mg tablet 5 mg PO TID PRN pain #40 tabs 12/09/23 03/25/24 Rx fluticasone fur. 100 mcg-umeclid See Rx Instructions .Route 01/08/24 03/25/24 Rx 62.5 mcg-vilant 25 mcg .COMPLEX #180 blisters inhalat.powder (Trelegy Ellipta) ibuprofen 800 mg tablet See Rx Instructions .Route 02/09/24 03/25/24 Rx .COMPLEX #90 tabs rosuvastatin 10 mg tablet See Rx Instructions .Route 02/25/24 03/25/24 Rx .COMPLEX #90 tabs New Prescriptions to Start Prescriptions: Allergies Allergy/AdvReac Type Severity Reaction Status Date / Time bacitracin (From Neosporin Allergy Mild Rash Verified 12/09/23 10:27 ([id number])) benzocaine (BENZOCAINE) Allergy Mild Verified 12/09/23 10:27 neomycin (From Neosporin Allergy Mild Rash Verified 12/09/23 10:27 ([id number])) polymyxin B (From Neosporin Allergy Mild Rash Verified 12/09/23 10:27 ([id number])) gabapentin Allergy Intermediate Hives Uncoded 12/09/23 10:27 Assessment and Plan *Assessment and plan (1) Degenerative disc disease, lumbar: Status: Acute Category: Medical Code(s): M51.369 - Other intervertebral disc degeneration, lumbar region without mention of lumbar back pain or lower extremity pain (2) Lumbar disc disease with radiculopathy: Status: Acute Category: Medical Code(s): M51.16 - Intervertebral disc disorders with radiculopathy, lumbar region Plan Patient has had significant improvement following his transforaminal epidural and does not require any additional injection therapy. Patient was counseled that since he did get such significant relief when he does start to have increased pain that this is an injection we can repeat in the future. We will also continue to monitor interactions with Dr. Husain as whether or not he is proceeding forward with back surgery. Patient will return to clinic in 6 weeks for reevaluation of symptoms and plan of care. Patient has been instructed to contact the clinic with any concerns before the next appointment. Dr. Longo has reviewed this note and agrees with this plan of care. This note was dictated using voice recognition software and make contain errors or omissions. All injections are used with Lidocaine, Bupivacaine and Depo Medrol. Occasionally urine drug screen is needed to verify patient's compliance with our office pain contract. This is ordered based off specific treatments related to chronic pain with the potential to abuse certain medications.
== END 2024-03-25 23:59 | disposition home or self-care (01) ==
LOC: SC.PAIN 14:29
PROVIDERS: PCP Family Medicine; Visit Provider Nurse Practitioner Family
DX: M51.16 Intervertebral disc disorders with radiculopathy, lumbar region (principal); F17.210 Nicotine dependence, cigarettes, uncomplicated
CPT/HCPCS: 99212; G0463

== ENCOUNTER 2024-05-06 08:27 | Outpatient (POV) | payer MEDICARE, SELFPAY ==
[2024-05-06 08:52] VITALS: BP 119/68; PULSE 78; RESP 18; O2SAT 97; BMI 26.4
--- NOTE | 2024-05-06 09:01 | EXP.PAIN.SOA ---
[facility] Disclaimer: The information contained in this section may have been updated after the patient was seen, as this information can be updated by other users. Medical History Lumbar disc disease with radiculopathy Thoracic degenerative disc disease Presence of orthopedic implant of forearm Leg length discrepancy Right-sided back pain Osteoarthritis COPD (chronic obstructive pulmonary disease) Hyperlipidemia Pulmonary nodule Cigarette nicotine dependence Encounter for smoking cessation counseling COPD exacerbation Surgical History History of surgery on arm Previous back surgery Social History Smoking Status: Current every day smoker tobacco type: cigarettes packs per day: 2 second hand exposure: Yes alcohol intake: current alcohol intake frequency: 0-2 drinks per day current occupational status: employed Travel in the last 8 weeks: None household members: spouse housing: apartment current occupational exposures/hazards: Yes caffeine: Yes PM Subjective & Objective Subjective Subjective:: Patient is a pleasant 73-year-old male who presents today for 6-week follow-up. He does deny any new falls or injuries. He does rate his pain this morning a 4 out of 10. He states that the pain has progressively worsened in the last couple of weeks. He states by the end of the night he is at least at an 8 out of 10 and it is still going down into his right upper thigh. Patient does state that it always is on the low back towards the right and denies any left-sided symptoms. Patient did previously have a transforaminal epidural of L4-L5 back in February that did provide 80% relief and has worked the last 2 months. Patient does state the pain is interfering with his ability perform activities of daily living such as cooking and cleaning. Patient does state that he has not been back to see Dr. Husain to see whether or not if he is wanting to proceed forward with surgery. His Antoine has been reviewed and is appropriate. Review of Systems: General: No recent weight changes, no fever, no sleep disturbances Respiratory: No cough, no shortness of air, no recurring pulmonary infections Cardiovascular/peripheral vascular: No chest pain, no palpitations, no edema, no shortness of breath Gastrointestinal: No new onset incontinence, normal bowel movements reported Genitourinary: No new onset incontinence Musculoskeletal: Right leg pain, low back pain right-sided Psychiatric: [Normal mood/affect] Neurological: [Denies weakness in extremities], [denies balance issues] Pain at rest (0-10 scale): 8 Objective Objective:: Physical Exam: General: Alert and oriented x3, no acute distress, pleasant and cooperative Lungs: Respirations even and unlabored, symmetrical chest expansion Eyes: PERRL Musculoskeletal: Flexion and extension of lumbar [spine] somewhat guarded secondary to pain, [antalgic gait noted] positive right leg raise Neurological: Speech clear, no gross sensory deficit Has patient had previous pain injection?: No Conservative treatment options previously tried: Home exercise plan Length of treatment: Longer than 12 weeks Meds Home Medications and Allergies Home Medications ?Medication ?Instructions ?Recorded ?Confirmed ?Type loratadine 10 mg tablet (Claritin) 10 mg PO DAILY 09/08/19 03/25/24 History albuterol sulfate 90 mcg/actuation 2 puff inhalation Q4-6H PRN 01/06/23 03/25/24 Rx aerosol inhaler shortness of breath or wheezing #8.5 grams oxycodone 5 mg tablet 5 mg PO TID PRN pain #40 tabs 12/09/23 03/25/24 Rx fluticasone fur. 100 mcg-umeclid See Rx Instructions .Route 01/08/24 03/25/24 Rx 62.5 mcg-vilant 25 mcg .COMPLEX #180 blisters inhalat.powder (Trelegy Ellipta) ibuprofen 800 mg tablet See Rx Instructions .Route 02/09/24 03/25/24 Rx .COMPLEX #90 tabs rosuvastatin 10 mg tablet See Rx Instructions .Route 02/25/24 03/25/24 Rx .COMPLEX #90 tabs New Prescriptions to Start Prescriptions: Allergies Allergy/AdvReac Type Severity Reaction Status Date / Time bacitracin (From Neosporin Allergy Mild Rash Verified 12/09/23 10:27 ([id number])) benzocaine (BENZOCAINE) Allergy Mild Verified 12/09/23 10:27 neomycin (From Neosporin Allergy Mild Rash Verified 12/09/23 10:27 ([id number])) polymyxin B (From Neosporin Allergy Mild Rash Verified 12/09/23 10:27 ([id number])) gabapentin Allergy Intermediate Hives Uncoded 12/09/23 10:27 Assessment and Plan *Assessment and plan (1) Lumbar disc disease with radiculopathy: Status: Acute Category: Medical Code(s): M51.16 - Intervertebral disc disorders with radiculopathy, lumbar region (2) Degenerative disc disease, lumbar: Status: Acute Category: Medical Code(s): M51.369 - Other intervertebral disc degeneration, lumbar region without mention of lumbar back pain or lower extremity pain Plan Patient is experiencing worsening pain in his low back that does radiate down into his right upper thigh. Patient did have limited range of motion of his lumbar spine and a positive right leg raise. Patient did have previous success with his first right transforaminal injection providing 80% relief and 2 months of improvement. Patient has continued conservative treatment including oral medications, heating pad, hot showers, at home stretching exercise for longer than 12 weeks and between injections. Patient was counseled that I do believe he would benefit from a repeat injection however I am also recommending him to follow-up with Dr. Husain and confirm that he is okay with proceeding forward with this injection. Patient was counseled that he can cancel this if Dr. Husain does want a proceed forward with surgical intervention. I did counseling department chair the patient that it is typically 3 months that neurosurgeons would prefer patients have no steroid use. Patient acknowledges understanding. Patient is not on any blood thinners. Patient will be given a tentative date and time for his repeat right transforaminal epidural steroid injection L4-L5 under fluoroscopy. Patient has been instructed to contact the clinic with any concerns before the next appointment. Dr. Longo has reviewed this note and agrees with this plan of care. This note was dictated using voice recognition software and make contain errors or omissions. All injections are used with Lidocaine, Bupivacaine and Depo Medrol. Occasionally urine drug screen is needed to verify patient's compliance with our office pain contract. This is ordered based off specific treatments related to chronic pain with the potential to abuse certain medications.
== END 2024-05-06 23:59 | disposition home or self-care (01) ==
PROVIDERS: PCP Family Medicine; Visit Provider Nurse Practitioner Family
DX: M51.16 Intervertebral disc disorders with radiculopathy, lumbar region (principal); F17.210 Nicotine dependence, cigarettes, uncomplicated; Z73.89 Other problems related to life management difficulty
CPT/HCPCS: 99212; G0463

== ENCOUNTER 2024-06-22 16:36 | Outpatient (CLI) | payer MEDICARE, SELFPAY ==
--- OUTSIDE RECORDS SUMMARY | 2024-06-22 16:39 | XMS_ITS | Continuity of Care Document ---
Author Organization [facility] Address [address] [place] [address] Care Team Providers Care Organic Section Technical Lead Name Role Phone AMELIA BUSH Primary Care Provider Assessment Encounter Date Assessment Date Assessment LastModified by Organization Details LastModified Time 06/07/2024 06/07/2024 ASSESSMENT: Mr. De Jesus is a 73-year-old man who returns to the office after last being seen 01/19/2024 with continued right sided low back and lower extremity symptoms. He has previously had a right L5-S1 discectomy with Dr. Clark on 02/06/2019. He is accompanied by his . He continues to report right-sided low back pain that radiates into his right buttock and down the right leg extending to his knee. This is associated with pins, needles, numbness, and tingling as well as pain. He reports there is not any 1 position that is very comfortable and he frequently has to move around. He is finding himself walking slightly forward flexed at the waist as it is more uncomfortable when he goes to stand up straight. He did physical therapy to include dry needling they believe around the holidays in 2023 at [facility]. They did an injection with Dr. Longo in February that he reports helped temporarily. He is ready to move forward with the right L4-5 microscopic decompression that is currently scheduled for June 24, 2024. He denies any bowel or bladder control issues. IMAGING: At the time of Mr. De Jesus's appointment, the only lumbar imaging I could find in our system was a lumbar MRI completed 07/15/2017 at [facility]. He did have thoracic and lumbar MRIs completed at [facility] on 11/25/2023. Leticia, our baking assistant, had his CD with this imaging. Dr. Clark and I did personally review these images and read the radiologist report. 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 Nurse practitioner visit PLAN: Request all imaging results from [facility] Will contact Mr. De Jesus after determining what additional, if any, imaging is needed I spoke with Mr. De Jesus and his that unfortunately, I cannot find any updated imaging of his lumbar spine. His reports that she brought a CD herself to our office from [facility] last year. I did question if they took that to their appointment with Dr. Longo after seeing our office in January, but they both report they did not take it with them as he has access to [facility]. We will request all of his records from [facility] and depending on when the last lumbar MRI was completed, determine if we need to move forward with updated imaging. They both verbalized understanding of these instructions and are agreeable to this plan. They have no further questions or concerns at this time. They are satisfied with this plan of care. Lumbar MRI from 11/25/[address] Clark. However, this MRI is over [address] Clark would like to get an updated study to confirm his surgical plan. I will contact Mr. De Jesus to discuss getting scheduled for a lumbar MRI without contrast at [facility] as soon as possible and for them to bring the CD to our office after it is complete for Dr. Clark to review to confirm his surgical plan. PLAN: Lumbar MRI without contrast [id number] Not available 06/07/2024 15:27:04 Plan of Treatment Reminders Order Date Submit Date Provider Last Modified By Organization Details Last Modified Time Details Appointments [facility] 025 01:00PM TERESA CLARK MD Not available Not available Not available POST-OP o 025 08:45AM TERESA CLARK MD Not available Not available Not available Lab None recorde d. Referral None recorde d. Procedures None recorde d. Surgeries None recorde d. Imaging None recorde d. Medication Orders None recorde d. Patient TargetsNo targets recorded. Patient InstructionsNo instructions recorded. Reason for Referral None Reported. Results Created Date Observation Date Name Description Value Unit Range Abnormal Flag Note LastModifiedBy Organization Detail LastModifiedTime 06/08/19 25 11/25/2023 MRI, thora cic spine , w/wo contr ast No observ ation record ed. [email or web address] [facility] [address], [place], [address], 06/09/2024 08:38:22 06/08/19 25 11/25/2023 MRI, lumba r spine , w/wo contr ast No observ ation record ed. [email or web address] [facility] [address], [place], [address], 06/09/2024 08:38:58 Result Notes None recorded. Procedures Surgical History Date Name Laterality Status Provider Name and Address Organization Details Recorded Time Unlisted px hands/fingers completed [facility] 01/12/2018 14:42:22 Back Surgery completed [facility] 01/19/2024 08:11:42 Imaging Results None recorded. Procedure Notes None recorded. Medical Equipment None Reported. Allergies No known drug allergies Medications Name Sig Start Date Stop Date Status Note LastModified by Organization Details LastModified Time celecoxib 200 mg capsule 01/18 completed Not Available Not Available Not Available cyclobenzap rine 10 mg tablet TAKE 1 TABLET BY MOUTH THREE TIMES DAILY NEEDED FOR MUSCLE SPASM 01/18 completed Not Available Not Available Not Available prednisone 10 mg tablet TAKE 2 TABLETS BY MOUTH DAILY FOR BACK PAIN active Not Available Not Available No t Available azithromyci n 250 mg tablet 01/18 completed Not Available Not Available Not Available ibuprofen 800 mg tablet TAKE 1 TABLET BY MOUTH EVERY 8 HOURS NEEDED FOR PAIN active Not Available Not Available No t Available sulfamethox azole 800 mg-trimetho prim 160 mg tablet active Not Available Not Available Not Available tramadol 50 mg tablet 01/18 completed Not Available Not Available Not Available triamcinolo ne acetonide 0.1 % topical cream active Not Available Not Available Not Available meloxicam 7.5 mg tablet TAKE 1 TABLET BY MOUTH EVERY DAY 01/18 completed Not Available Not Available Not Available oxycodone-a cetaminophe n 5 mg-325 mg tablet TAKE 1 TABLET BY MOUTH THREE TIMES A DAY NEEDED FOR PAIN 01/18 completed Not Available Not Available Not Available methocarbam ol 750 mg tablet TAKE 1 TABLET BY MOUTH FOUR TIMES DAILY 01/18 completed Not Available Not Available Not Available hydrocodone 7.5 mg-acetamin ophen 325 mg tablet Take 1 tablet every 6 hours by oral route. 01/18 completed Not Available Not Available Not Available dexamethaso ne 4 mg tablet TAKE 1 TABLET BY MOUTH TWICE DAILY 01/18 completed Not Available Not Available Not Available gabapentin 300 mg capsule 01/18 completed Not Available Not Available Not Available methylpredn isolone 4 mg tablets in a dose pack FOLLOW PACKAGE DIRECTION S 01/18 completed Not Available Not Available Not Available oxycodone 5 mg tablet TAKE 1 TABLET BY MOUTH THREE TIMES A DAY NEEDED FOR PAIN active Not Available Not Available No t Available rosuvastati n 10 mg tablet active Not Available Not Available Not Available bupropion HCl XL 150 mg 24 hr tablet, extended release TAKE 1 TABLET BY MOUTH EVERY DAY active Not Available Not Available No t Available Trelegy Ellipta 100 mcg-62.5 mcg-25 mcg powder for inhalation active Not Available Not Available N ot Available Vitals Date Recorded Body height Body mass index (BMI) Body weight Systolic blood pressure Diastolic blood pressure Provider Name and Address Organization Details Last Updated DateTime 06/07/2024 177.8 cm 26.4 kg/m2 54616 g 128 mm[Hg] 84 mm[Hg[facility] Social History Question Answer Notes LastModified by Organizat ion Details LastModified Time Tobacco Smoking Status Current Every Day Smoker Angelina Desaiholz [facility] 01/12/2018 14:42:05 What Was The Date Of Your Most Recent Tobacco Screening? 03/16/2018 Information n ot available 04/27/2019 Sex: Unknown Functional Status None recorded. Mental Status None recorded. Family History Relationship Description Onset Age of this Age Resolved Age Notes LastModified by Organization Details LastModified Time Unspecified Relation Malignant neoplastic disease [email or web address] Not available 01/18 08:11:23 Unspecified Relation Diabetes mellitus [email or web address] Not available 01/18 08:11:28 Unspecified Relation Hypertensive disorder [email or web address] Not available 01/18 08:11:33 Medical History Condition Response Arthritis Y High Cholesterol Y Past Encounters Encounter ID Performer Location Encounter Start Date Encounter Closed Date Diagnosis/Indication Diagnosis SNOMED-CT Code Diagnosis ICD10 Code Diagnosis Note [id number] MONET CEBALLOS, ANTONIO [facility] [address] [place] [address] 06/07/2024 07:52:49 06/08/2024 06:06:14 Lumbar radiculopathy 993371409 M54.16 Health Concerns Section Related Observation LastModified by Organization Detai ls LastModified Time None Recorded Concern Status LastModified by Organization Details LastModified Time None Recorded Payers Encounter Date Sequence Insurance Name Policy Number Policy Long Covered Member ID Long Member ID Guarantor Name 06/07/2024 1 [place] [employer] [facility] MEDIBLUE PLUS (MEDICARE REPLACEMENT HMO) [id number] Hardy De Jesus [id number] Hardy De Jesus Notes Date Note Type Note Provider Name and Address Organization Details Recorded Time 06/07/2024 text/html Mr. De Jesus is a 73-year-old man who returns to the office after last being seen 01/19/2024 with continued right sided low back and lower extremity symptoms. He has previously had a right L5-S1 discectomy with Dr. Clark on 02/06/2019. MONET CEBALLOS, ANTONIO [address] [place], [address], [facility] 06/07/2024 15:27:15
--- OUTSIDE RECORDS SUMMARY | 2024-06-22 16:39 | XMS_ITS | Data Portability ---
Author Organization [facility] CLOS[facility] Address [address] [facility] [address] [place] [address] Care Team Providers Care Yarn Tester Name Role Phone AMELIA BUSH Primary Care Provider Assessment Encounter Date Assessment Date Assessment LastModified by Organization Details LastModified Time 01/12/2018 01/12/2018 Mr. De Jesus is a 67-year-old gentleman with and inferiorly herniated right L5-S1 disc fragment. We reviewed his imaging today in the office. I think is a candidate for right L5-S1 minimally invasive discectomy. I described the procedure in detail. We discussed risks and benefits of the operation. We specifically discussed the risks of general anesthesia, reherniation, spinal fluid leakage and unforeseen events. Overall I feel that these risks are low, but not 0. He voiced good understanding of this and wishes to proceed with a right minimally invasive L5-S1 discectomy. Not available 01/12/2018 15:33:45 03/16/2018 03/16/2018 Mr. De Jesus is doing well after an L5-S1 discectomy on the right. We discussed his restrictions going forward. He'll be released from my care at this time. He understands he can call at any time with questions or concerns. Not available 03/16/2018 17:51:40 01/19/2024 01/19/2024 Mr. De Jesus is a 73-year-old gentleman with right sided back, buttock and hip pain. He does have some lateral recess stenosis on the right at L4-5, but nothing definitive for nerve compression. Things may be different when patient is up standing and walking. I would like him to undergo a right sided L4-5 interlaminar or a right sided transforaminal L4 5 injection to see if he gets a response. If he does, I think he would be a good candidate for an outpatient right sided L4-5 microscopic decompression. This would not include a discectomy, unless intraoperative findings varied from his MRI. I have messaged Dr. Longo to see if we can arrange to have the L4 5 injection done. I am fine if they trial the right hip also, but I would like to separate these out so we can evaluate the response to each. Mr. De Jesus and his understand the plan. They will call us a few days after the injection and give us an update. Not available 01/19/2024 08:48:15 06/07/2024 06/07/2024 ASSESSMENT: Mr. De Jesus is [...] believe around the holidays in 2023 at [facility]. They did an injection with Dr. [...] was a lumbar MRI completed 07/15/2017 at [facility]. He did have thoracic and lumbar MRIs completed at [facility] on 11/25/2023. Leticia, our research scholar, had his CD with this imaging. Dr. Clark and I did personally review these images and read the radiologist report. 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 Nurse practitioner visit PLAN: Request all imaging results from [facility] Will contact Mr. De Jesus after determining what additional, if any, imaging is needed I spoke with Mr. De Jesus and his that unfortunately, I cannot find any updated imaging of his lumbar spine. His reports that she brought a CD herself to our office from [facility] last year. I did question if they took that to their appointment with Dr. Longo after seeing our office in January, but they both report they did not take it with them as he has access to [facility]. We will request all of his records from [facility] and depending on when the [...] for a lumbar MRI without contrast at [facility] as soon as possible and for them to bring the CD to our office after it is complete for Dr. Clark to review to confirm his surgical plan. PLAN: Lumbar MRI without contrast Not available 06/07/2024 15:27:04 Plan of Treatment Reminders Order Date Submit Date Provider Last Modified By Organization Details Last Modified Time Details Appointments [facility] 025 01:00PM TERESA CLARK MD [...] Abnormal Flag Note LastModifiedBy Organization Detail LastModifiedTime 01/14/20 18 07/15/2017 MRI, lumba r spine , w/o contr ast No observ ation record ed. [facility] Not Available 2017 13:00:39 06/08/1911/25/2023 MRI, thora cic spine , w/wo contr ast No observ ation record ed. [address], [place], [address], 06/09/2024 08:38:22 06/08/19 25 11/25/2023 MRI, lumba r spine , w/wo contr ast No observ ation record ed. [address], [place], [address], 06/09/2024 08:38:58 Result Notes None recorded. Procedures Surgical History Date Name Laterality Status Provider Name and Address Organization Details Recorded Time Unlisted px hands/fingers completed [facility] 01/12/2018 14:42:22 Back Surgery completed [facility] 01/19/2024 08:11:42 Imaging Results Imaging Date Name Status LastModified by Organiz ation Details LastModified Time 07/15/2017 MRI, lumbar spine, w/o contrast completed [facility] Information not available 01/13/2018 13:00:39 11/25/2023 MRI, thoracic spine, w/wo contrast completed [address], [place], [address], 06/09/2024 08:38:22 11/25/2023 MRI, lumbar spine, w/wo contrast completed [address], [place], [address], 06/09/2024 08:38:58 Procedure Notes None recorded. Medical Equipment None [...] and Address Organization Details Last Updated DateTime 01/12/2018 179.07 cm 24.6 kg/m2 45856.07 g 126 mm[Hg] 72 mm[Hg] Angelina Tan [facility] 8 14:43:01 Date Recorded Body height Body mass index (BMI) Body weight Systolic blood pressure Diastolic blood pressure Provider Name and Address Organization Details Last Updated DateTime 03/16/2018 179.07 cm 24.6 kg/m2 61321.07 g 120 mm[Hg] 80 mm[Hg] Angelina Maddox [facility] 9 14:37:39 Date Recorded Body height Body mass index (BMI) Body weight Systolic blood pressure Diastolic blood pressure Provider Name and Address Organization Details Last Updated DateTime 01/19/2024 177.8 cm 26.4 kg/m2 86080 g 132 mm[Hg] 82 mm[Hg] Angelina Maddox [facility] 4 08:17:53 Date Recorded Body height Body mass index (BMI) Body weight Systolic blood pressure Diastolic blood pressure Provider Name and Address Organization Details Last Updated DateTime 06/07/2024 177.8 cm 26.4 kg/m2 55326 g 128 mm[Hg] 84 mm[Hg] Vandana Benitez [facility] 5 08:20:11 Social History Question Answer Notes LastModified by Organizat ion Details LastModified Time Tobacco Smoking Status Current Every Day Smoker Angelina Maddox [facility] 01/12/2018 14:42:05 What Was The Date [...] SNOMED-CT Code Diagnosis ICD10 Code Diagnosis Note [id number] TERESA CLARK MD [facility] [address] [place] [address] 01/12/2018 13:55:10 01/13/2018 14:50:47 Lumbar radiculopathy 257835208 M54.16 [id number] TER[facility] CLARK [facility] [address] [place] [address] 03/16/2018 13:39:01 03/20/2018 08:46:57 Postoperative care [id number] Z48.89 [id number] TERESA CLARK MD [facility] [address] [place] [address] 01/19/2024 08:01:43 01/20/2024 04:47:20 Lumbar radiculopathy [id number] M54.16 [id number] MONET CEBALLOS, BLOCK CLEANER [facility] [address] [place] [address] 06/07/2024 07:52:49 06/08/2024 06:06:14 Lumbar radiculopathy [id number] M54.16 Health Concerns Section Related Observation LastModified by Organization Detai ls LastModified Time None Recorded Concern Status LastModified by Organization Details LastModified Time None Recorded Advance Directives Directive None Recorded Payers Encounter Date Sequence Insurance Name Policy Number Policy Long Covered Member ID Long Member ID Guarantor Name 01/12/2018 1 [place] [id number] Umm De Jesus [id number] Hardy De Jesus 03/16/2018 1 [place] [id number] Umm De Jesus [id number] Hardy De Jesus 01/19/2024 1 [id number] (MEDICARE REPLACEMENT/AD VANTAGE - PPO) Hardy De Jesus [id number] Hardy De Jesus 06/07/2024 1 [place]MED[place]AC[place] HMO[place] [id number] Hardy De Jesus [id number] Hardy De Jesus Notes Date Note Type Note Provider Name and Address Organization Details Recorded Time 01/12/2018 text/html Mr. De Jesus is a 67-year-old gentleman complaining of 8 months of severe back and right buttock pain. He believe this to started after some heavy lifting. He describes 4 out of 10 pain or greater. The pain is described as a deep ache. He has difficulty bending forward. The pain is made better with walking, and worse with any bending lifting or twisting. He denies any loss of bowel or bladder control. He did 16 visits of physical therapy and 20 visits with a chiropractor with some relief. He has trialed steroids. He takes Advil 3 times a day. He underwent an injection which relieved his pain for a day and a half. He presents today with an MRI of the lumbar spine. TERESA CLARK MD [address] [place] [address], [phone], [facility] 01/12/2018 15:34:22 03/16/2018 text/html Mr. De Jesus returns today after right L5-S1 discectomy performed on February 06, 2018. He is responded well to this with complete relief of his radicular pain. He denies any issues with his recovery. TERESA CLARK MD [address] [place] [address], [phone], [facility] 03/16/2018 17:51:50 01/19/2024 text/html Mr. De Jesus is a 73-year-old gentleman on whom I have done a right L5-S1 discectomy in the past. He did well from this. Since July, he has started having right sided back pain and some radiation down into the buttock with right lateral thigh numbness. He feels like this pain is higher than his previous pain related to the L5-S1 level. There was no inciting event. The pain is 6 out of 10 and described as burning, aching, tightness and spasms. The pain is constant. He denies any alleviating factors. Any type of bending makes the pain worse. He denies any significant weakness. No balance difficulties. No loss of bowel or bladder continence. He has done physical therapy lumbar traction, TENS unit, steroids and anti-inflammatorie s without relief. He was on narcotics as needed. He is scheduled for a right hip injection at Dr. Longo's [facility] office tomorrow. TERESA CLARK MD [address] [place], [address], [facility] 01/22/2024 11:18:31 06/07/2024 text/html Mr. De Jesus is a 73-year-old man who returns to the office after last being seen 01/19/2024 with continued right sided low back and lower extremity symptoms. He has previously had a right L5-S1 discectomy with Dr. Clark on 02/06/2019. MONET CEBALLOS APRN [address] [place], [phone], [facility] 06/07/2024 15:27:15
--- NOTE | 2024-06-22 16:43 | MR_ITS ---
PROCEDURE INFORMATION: Exam: MR Lumbar Spine Without Contrast Exam date and time: 06/22/2024 4:48 PM Age: 73 years old Clinical indication: Low back pain; Lower back pain with right leg pain x 7-8 months. No injury; Additional info: Radiculopathy lumbar region TECHNIQUE: Imaging protocol: Magnetic resonance imaging of the lumbar spine without contrast. COMPARISON: MR LUMBAR SPINE WO/W CON 25/11/2023 07:48 FINDINGS: Bones/joints: Unremarkable. No fracture. Normal alignment. Spinal cord: Visualized cord, conus medullaris and cauda equina are unremarkable without compression. L1-L2: Mild facet arthropathy. L2-L3: Mild facet arthropathy. L3-L4: Mild disc bulge combining with facet and ligamentum flavum hypertrophy to produce mild right subarticular recess stenosis. Moderate right neural foraminal stenosis. L4-L5: Mild disc bulge combining with facet and ligamentum flavum hypertrophy to produce mild left subarticular recess stenosis. Moderate bilateral neural foraminal stenosis. L5-S1: Central disc protrusion effacing the ventral aspect of the thecal sac without significant spinal stenosis. Soft tissues: Unremarkable. IMPRESSION: No acute findings. Multilevel degenerative changes without significant spinal stenosis unchanged from prior study.
== END 2024-06-22 23:59 | disposition home or self-care (01) ==
LOC: RAD 16:38
PROVIDERS: PCP Family Medicine; Visit Provider Neurological Surgery
DX: M54.16 Radiculopathy, lumbar region (principal)
CPT/HCPCS: 72148

== ENCOUNTER 2024-08-21 10:33 | Outpatient (CLI) | payer MEDICARE, SELFPAY ==
--- OUTSIDE RECORDS SUMMARY | 2024-06-24 10:39 | XMS_ITS | Encounter Summary ---
Author Organization [email or web address] Address [address] [place] [address] Care Team Providers Care Web Worker Name Role Phone Michael Pal MD Primary Care Provider [phone] Reason for Visit * Auth/Cert (Routine) Specialty Diagnoses / Procedures Referred By Mary Ann oden Referred To Contact Diagnoses Lumbar radiculopathy Lumbar radiculopathy Procedures DE SHORT FACETECTOMY & FORAMOTOMY 1 VRT SGM LUMBAR LAMINECTOMY, SPINE, LUMBAR Estevan Husain MD [address] [place] [address] Phone: tel: fax: Referral ID Status Reason Start Date Expiration Date Visits Re quested Visits Authorized [id number] 05/10/2024 1 1 Encounter Details Date Type Department Care Team (Latest Contact Info) Description 06/24/2024 10:39 AM EDT - 06/24/2024 4:33 PM EDT Hospital Encounter [facility] Operating Room [address] [place] [id number] Estevan Husain MD [address] [place] [address] Discharge Disposition: Home or Self Care Social History Tobacco Use Types Packs/Day Years Used Date Smoking Tobacco: Every Day Cigarettes Smokeless Tobacco: Never Alcohol Use Standard Drinks/Week Comments Yes 0 (1 standard drink = 0.6 oz pur e alcohol) 6 beers daily Humiliation, Afraid, Rape, and Kick questionnair e Answer Date Recorded Within the last year, have y ou been afraid of your partner or ex-partner? No 06/17/2024 Within the last year, have y ou been humiliated or emotionally abused in other ways by your partner or ex-partner? No Within the last year, have y ou been kicked, hit, slapped, or otherwise physically hurt by your partner or ex-partner? No 06/17/2024 Within the last year, have y ou been raped or forced to have any kind of sexual activity by your partner or ex-partner? No 06/17/2024 PHQ-2 Answer Date Recorded Patient Health Questionnaire-2 Score 0 06/17/2024 [facility] Intimate Partner Violence Answer Da te Recorded Within the last year, have y ou been afraid of your partner or ex-partner? No 06/17/2024 Within the last year, have y ou been humiliated or emotionally abused in other ways by your partner or ex-partner? No Within the last year, have y ou been kicked, hit, slapped, or otherwise physically hurt by your partner or ex-partner? No 06/17/2024 Within the last year, have y ou been raped or forced to have any kind of sexual activity by your partner or ex-partner? No 06/17/2024 Sex and Gender Information Value Date Recorded Sex Assigned at Not on file Legal Sex Male 8:25 PM CDT Gender Identity Not on file Sexual Orientation Not on file documented as of this encounter Last Filed Vital Signs Vital Sign Reading Time Taken Comments Blood Pressure 134/76 06/24/2024 4:11 PM EDT Pulse 82 06/24/2024 4:11 PM EDT Temperature 37.3 C (99.1 F) 06/24/2024 3:56 PM EDT Respiratory Rate 16 06/24/2024 4:11 PM EDT Oxygen Saturation 92% 06/24/2024 4:1 1 PM EDT pt using incentive spirometry, [id number] Inhaled Oxygen Concentration - - Weight 82.8 kg (182 lb 9.6 oz) 06/24/2024 11:08 AM EDT Height 177.8 cm (5' 10 ) 06/24/2024 11: 08 AM EDT Body Mass Index 26.2 06/24/2024 11:08 AM EDT documented in this encounter Discharge Instructions * Discharge Instr - Other Orders* Zina Mcclelland RN - 06/24/2024 3:25 PM EDT Gradually resume your regular diet, as tolerated No bending, lifting, or twisting You may remove the bandage in 3 days. Wash your hands with soap and warm water before and after coming in contact with your incision. Keep incision site and bandage clean, dry, and intact at all times. You may shower as long as you protect the incision site from getting wet. Use a waterproof or protective wrap like Glad Press N' Seal to keep site dry. Keep back away from stream. Otherwise, sponge bathe only. Once dressing is removed, your may shower as normal. Be sure to pat the glue on your incision completely dry with a clean towel after showering and do not soak or submerge the incision in apool, bath tub, etc until healing is well underway and okay by Dr. Husain No strenuous activity No driving for 24 hours or while taking narcotics No drinking alcohol for 24 hours or while taking narcotics Please notify Dr. Husain's office of fever above 101, body chills, warmth/redness/swelling around incision site, new onset numbness/tingling in your extremities, uncontrolled pain or nausea, or any other concerns or questions you have. * Attachments The following attachments cannot be sent through Care Everywhere. * Outpatient Surgery Adult Care After ([place] Citizen) * Surgical Spinal Decompression Care After ([place]) documented in this encounter Medications at Time of Discharge acetaminophen (TYLENOL) 650 MG CR tablet Take 1 tablet (650 mg total) by mouth every 8 (eight) hours as needed for pain. albuterol 90 mcg/actuation inhaler Inhale by mouth every 6 (six) hours as needed for wheezing. ascorbic acid (VITAMIN C ORAL) Take by mouth daily. cholecalciferol, vitamin D3, (VITAMIN D3 ORAL) Take by mouth daily. cyanocobalamin, vitamin B-12, (VITAMIN B-12 ORAL) Take by mouth. fluticasone-umecl idin-vilanter 100-62.5-25 mcg dsdv Inhale by mouth daily. ibuprofen (MOTRIN) 800 MG tablet Take 1 tablet (800 mg total) by mouth daily as needed for pain. rosuvastatin (CRESTOR) 10 MG tablet Take 1 tablet (10 mg total) by mouth daily. ubidecarenone (ULTRA COQ10 ORAL) Take by mouth daily. documented as of this encounter H&P Notes * Sadie Carlson, ANTONIO - 06/24/2024 11:06 AM Jordyn: Pre Operative History of Present Illness History Of Present Illness Hardy De Jesus is a 73 y.o. male presenting with pertinent PMH of Lumbar radiculopathy. Patient has been having issues with lower back pain that radiates into his right leg extending to his kneefor about a year. He is s/p prior lumbar procedure several years prior with good results. Patient has been conservatively managed but continues to have pain which is negatively impacting activities of daily living. This morning the patient complains of 2/10 pain with rest that increases to 10/10 with ambulation. Patient denies any acute illness, fevers, chills, nausea, diarrhea, CP and SOA at this time. Patient was evaluated by Dr. Husain and presents today for a right sided L4-L5 microscopic decompression. Past Medical History He has a past medical history of COPD (chronic obstructive pulmonary disease) (HCC) and [place] (hard of hearing). Surgical History He has a past surgical history that includes Back surgery and Wrist fracture surgery (Left). Social History He reports that he has been smoking cigarettes. He has never used smokeless tobacco. He reports current alcohol use. He reports that he does not use drugs. Family History His family history is not on file. Allergies Benzocaine and Procaine Medications Current Outpatient Medications Medication Instructions albuterol 90 mcg/actuation inhaler inhalation, Every 6 hours PRN ascorbic acid (VITAMIN C ORAL) oral, Daily cholecalciferol, vitamin D3, (VITAMIN D3 ORAL) oral, Daily cyanocobalamin, vitamin B-12, (VITAMIN B-12 ORAL) oral yllhjceqzpe-tpzgrbdlb-qvonkklw 100-62.5-25 mcg dsdv Inhale by mouth daily. ibuprofen (MOTRIN) 800 mg, oral, Daily as needed rosuvastatin (CRESTOR) 10 mg, oral, Daily ubidecarenone (ULTRA COQ10 ORAL) oral, Daily Review of Systems 14 Point ROS completed and non-contributory except as listed above Last Recorded Vitals There were no vitals taken for this visit. Physical Exam Constitutional: General: He is not in acute distress. Appearance: Normal appearance. HENT: Head: Normocephalic and atraumatic. Nose: Nose normal. Mouth/Throat: Mouth: Mucous membranes are moist. Pharynx: Oropharynx is clear. Eyes: Extraocular Movements: Extraocular movements intact. Conjunctiva/sclera: Conjunctivae normal. Pupils: Pupils are equal, round, and reactive to light. Cardiovascular: Rate and Rhythm: Normal rate and regular rhythm. Pulses: Normal pulses. Heart sounds: Normal heart sounds. Pulmonary: Effort: Pulmonary effort is normal. No respiratory distress. Breath sounds: Normal breath sounds. Abdominal: General: Bowel sounds are normal. There is no distension. Palpations: Abdomen is soft. Musculoskeletal: Right lower leg: No edema. Left lower leg: No edema. Skin: General: Skin is warm and dry. Capillary Refill: Capillary refill takes less than 2 seconds. Neurological: General: No focal deficit present. Mental Status: He is alert and oriented to person, place, and time. Mental status is at baseline. Psychiatric: Mood and Affect: Mood normal. Behavior: Behavior normal. Diagnostic Results No visits with results within 1 Day(s) from this visit. Latest known visit with results is: Hospital Outpatient Visit on 06/17/2024 Component Date Value Ref Range Status Sodium 06/17/2024 141 136 - 145 meq/L Final Potassium 06/17/2024 4.2 3.4 - 5.1 meq/L Final CO2 06/17/2024 23 22 - 29 meq/L Final Chloride 06/17/2024 109 98 - 112 meq/L Final Glucose 06/17/2024 59 (L) 82 - 115 mg/dL Final BUN 06/17/2024 9.6 8.4 - 25.7 mg/dL Final Creatinine 06/17/2024 0.82 0.72 - 1.25 mg/dL Final BUN/Creatinine 06/17/2024 12 8 - 20 Final Calcium 06/17/2024 9.0 8.4 - 10.2 mg/dL Final Anion Gap 06/17/2024 13 (H) 4 - 12 Final eGFR (mL/min/1.73m2) 06/17/2024 93 >=60 mL/min/1.73m2 Final Osmolality Calc 06/17/2024 278.0 mOsm/kg Final WBC 06/17/2024 9.2 (H) 4.2 - 9.1 K/??L Final RBC 06/17/2024 4.06 (L) 4.63 - 6.08 M/??L Final Hemoglobin 06/17/2024 13.6 (L) 13.7 - 17.5 GM/DL Final Hematocrit 06/17/2024 41.0 40.1 - 51.0 % Final MCV 06/17/2024 101 (H) 79 - 92 fL Final MCH 06/17/2024 33.5 (H) 25.7 - 32.2 pg Final MCHC 06/17/2024 33.2 32.3 - 36.5 GM/DL Final RDW 06/17/2024 12.3 11.6 - 14.4 % Final Platelets 06/17/2024 254 140 - 375 K/CU MM Final MPV 06/17/2024 9.8 9.4 - 12.4 fL Final Color, UA 06/17/2024 Colorless Final Clarity, UA 06/17/2024 Clear Clear Final Specific H[place], UA 06/17/2024 1.005 1.005 - 1.030 Final pH, UA 06/17/2024 5.5 (L) 6.0 - 8.0 Final Leukocytes, UA 06/17/2024 Negative Negative Final Nitrite, UA 06/17/2024 Negative Negative Final Protein, UA 06/17/2024 Negative Negative Final Glucose, UA 06/17/2024 Normal Normal Final Ketones, UA 06/17/2024 Negative Negative Final Urobilinogen, UA 06/17/2024 Normal Normal Final Bilirubin, UA 06/17/2024 Negative Negative Final Blood, UA 06/17/2024 Negative Negative Final Specimen Source 06/17/2024 Urine, Clean Catch Final No image results found. 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 PROCEDURE: Right L4-5 hemilaminectomy, mesial facetectomy, foraminotomy OLD COIN DEALER: Caridad Licona PA-C TYPE OF ANESTHESIA: General DESCRIPTION/PROCEDURE IN DETAIL: Once consent was noted to be on chart, he was taken back to the operating room. He was anesthetizedand carefully placed in the prone position on a Neal spine frame. All pressure points were carefully checked and padded. Preoperative antibiotics were given. Fluoroscopy was draped into the field. He was prepped and draped in usual sterile fashion. A time-out was called. A #10 blade was used to make a midline incision at L4-5. Bovie electrocautery was used to dissect down to and through the lumbosacral fascia. A subperiosteal dissection was performed at L4-5 on the right. The Castellanos retractor was brought into the field. The operating microscope was focused on the interspace after the level was confirmed with intraoperative fluoroscopy. High-speed drill, #2 and #3 Kerrison was used to perform a hemilaminectomy, medial facetectomy, and foraminotomies. The ligamentum flavum was removed. The nerve root was fully visualized to be decompressed and a Salgado ball probe passed easily alongverify full decompression. Meticulous hemostasis was obtained. No CSF was visualized throughout this procedure. The wound was copiously irrigated. The retractor was removed. 0 Vicryl reapproximated the paraspinous muscles and fascia. 2-0 Vicryl to close space and close the skin subcuticularly.Mastisol and Steri-Strips were applied. Caridad Licona PA-C assisted throughout the surgery and helped perform the closure. SPECIMENS SENT: None ESTIMATED BLOOD LOSS: 50 mL DRAINS: None COMPLICATIONS: None documented in this encounter Plan of Treatment Not on file documented as of this encounter Procedures Procedure Name Priority Date/Time Associated Diagnosis Comments FL C-ARM < 1 HOUR Routine 06/24/2024 2:1 0 PM EDT DE SHORT FACETECTOMY & FORAMOTOMY 1 VRT SGM LUMBAR 06/24/2024 1:01 PM EDT Lumbar radiculopathy Case Notes IN 1100 , 1.5 HR (R), PASS 1300 TR NOVA GLUCOSE POC Routine 06/24/2024 11:2 9 AM EDT documented in this encounter Results * FL C-ARM < 1 HOUR (06/24/2024 2:10 PM EDT) Anatomical Region Laterality Modality X-Ray 06/25/2024 8:59 AM EDT Impressions 06/25/2024 9:59 AM EDT Please see postoperative report. Images reviewed, interpreted, and dictated by Dr. Jose Flaherty. Transcribed by Tariq Rhoades PA-C. Narrative 06/25/2024 9:59 AM EDT FLUOROSCOPY WITH FILMS HISTORY: L4-5 discectomy Fluoroscopic guidance was provided under the direction of the clinical service for intraoperative procedure. 1 digital spot radiographs were obtained for lumbar surgery. Fluoroscopy time was 0.05 minutes. RADIATION DOSE: Reference air kerma 1.75 mGy. Procedure Note Jose Flaherty MD - 06/25/2024 FLUOROSCOPY WITH FILMS HISTORY: L4-5 discectomy Fluoroscopic guidance was provided under the direction of the clinical service for intraoperative procedure. 1 digital spot radiographs were obtained for lumbar surgery. Fluoroscopy time was 0.05 minutes. RADIATION DOSE: Reference air kerma 1.75 mGy. IMPRESSION: Please see postoperative report. Images reviewed, interpreted, and dictated by Dr. Jose Flaherty. Transcribed by Tariq Rhoades PA-C. Estevan Husain MD IMG FLUOROSCOPY ORDERABLES Final Result * Glucose, Nova Meter (06/24/2024 11:29 AM EDT) POC-GLUCOSE 101 70 - 110 mg/dL 06/24/2024 11:30 AM EDT [facility] Comment: In the event of poor peripheral blood flow, venous or arterial blood should be used due to the potential of erroneous results. No action Require Service Advocate Contact [phone] 06/24/2024 11:30 AM EDT [facility] Blood WHOLE BLOOD / Unknown 06/24/2024 11:29 AM EDT 06/24/2024 11:29 AM EDT Narrative [facility] - 06/24/2024 11:30 AM EDT Service Advocate Contact ID is - [phone] Estevan Husain MD POINT OF CARE TEST ORDERABLES Fi nal Result [facility] [address] [place] [address] documented in this encounter Visit Diagnoses Not on filedocumented in this encounter Administered Medications Inactive Administered Medications - up to 3 most recent administrations Medication Order MAR Action Action Date Dose Rate Site albuterol 2.5 mg /3 mL (0.083 %) nebulizer solution 2.5 mg 2.5 mg Once as needed, nebulization, wheezing, Starting on Renate 06/24/24 at 1401, For 1 dose, RESPIRATORY THERAPY TREATMENT , PACU, What is the respiratory therapy Modality? Small volume Nebulization Given 06/24/2024 2:35 PM EDT 2.5 mg famotidine (PEPCID) tablet 20 mg 20 mg Once, oral, On Renate 06/24/24 at 1200, For 1 dose, Pharmacist to renally dose if CrCl is less than 50 mL/min or on CRRT., Pre-op Given 06/24/2024 11:31 AM EDT 20 mg fentaNYL PF (SUBLIMAZE) injection 25 mcg 25 mcg Every 5 min PRN, intravenous, severe pain (7-10), First Line for pain moderate or greater, Starting on Renate 06/24/24 at 1401, Maximum cumulative dose 100 mcg. If maximum dose is reached, proceed to 2nd Line agent., PACU Given 06/24/2024 3:09 PM EDT 25 mcg Given 06/24/2024 2:55 PM EDT 25 mcg HYDROmorphone (DILAUDID) injection 0.5 mg 0.5 mg Every 10 min PRN, intravenous, severe pain (7-10), 2nd Line agent after max dose Fentanyl given if ordered., Starting on Renate 06/24/24 at 1401, For 4 doses, Maximum cumulative dose 2 mg, PACU, PACU lactated Ringer's infusion 100 mL/hr Continuous, intravenous, Starting on Renate 06/24/24 at 1200, Pre-op Restarted 06/24/2024 2:13 PM EDT Continued by Anesthesia 06/24/2024 1:01 PM EDT 100 mL/hr New Bag 06/24/2024 11:26 AM EDT 100 mL/hr 100 mL/hr ondansetron (ZOFRAN) injection 4 mg 4 mg Every 15 min PRN, intravenous, nausea, Starting on Renate 06/24/24 at 1401, For 2 doses, 1st line for nausea For IV push, give over 2 - 5 minutes., PACU oxyCODONE (ROXICODONE) immediate release tablet 5 mg 5 mg Once as needed, oral, moderate pain (4-6), severe pain (7-10), For patients going home if they have not received hydromorphone or morphine., Starting on Renate 06/24/24 at 1401, For 1 dose, Look-alike/Sound-alike medication, PACU Given 06/24/2024 3:12 PM EDT 5 mg documented in this encounter Active and Recently Administered Medications Times are shown in EDT. Scheduled Medication Order 06/22/2024 06/23/2024 06/24/2024 ceFAZolin (ANCEF) 2 g in sodium chloride 0.9 % (NS) MBP 50 mL IVPB (COMPLETED) 2 g Once, intravenous, Administer over 30 Minutes, On Renate 06/24/24 at 1200, For 1 dose, Pre-op, Please choose an indication: Surgical Prophylaxis 1318 (New Bag - Prov ider: Evelyne Parkinson CRNA) famotidine (PEPCID) tablet 20 mg (COMPLETED) 20 mg Once, oral, On Renate 06/24/24 at 1200, For 1 dose, Pharmacist to renally dose if CrCl is less than 50 mL/min or on CRRT., Pre-op 1131 (Given - Provid er: Sara Cardoza RN) Continuous Medication Order 06/22/2024 06/23/2024 06/24/2024 lactated Ringer's infusion 100 mL/hr Continuous, intravenous, Starting on Renate 06/24/24 at 1200, Pre-op 1126 (New Bag - Prov ider: Sara Cardoza RN)1301 (Continued by Anesthesia - Provider: Evelyne Parkinson CRNA)1412 (Paused - Provider: Tucker Sanchez CRNA - Comment: Switch to gravity)1413 (Restarted - Provider: Tucker Sanchez CRNA) PRN Medication Order 06/22/2024 06/23/2024 06/24/2024 albuterol 2.5 mg /3 mL (0.083 %) nebulizer solution 2.5 mg (COMPLETED) 2.5 mg Once as needed, nebulization, wheezing, Starting on Renate 06/24/24 at 1401, For 1 dose, RESPIRATORY THERAPY TREATMENT , PACU, What is the respiratory therapy Modality? Small volume Nebulization 1435 (Given - Provid er: Maria R Bruner RN) fentaNYL PF (SUBLIMAZE) injection 25 mcg 25 mcg Every 5 min PRN, intravenous, severe pain (7-10), First Line for pain moderate or greater, Starting on Renate 06/24/24 at 1401, Maximum cumulative dose 100 mcg. If maximum dose is reached, proceed to 2nd Line agent., PACU 1455 (Given - Provid er: Maria R Bruner RN)1509 (Given - Provider: Maria R Bruner RN) HYDROmorphone (DILAUDID) injection 0.5 mg 0.5 mg Every 10 min PRN, intravenous, severe pain (7-10), 2nd Line agent after max dose Fentanyl given if ordered., Starting on Renate 06/24/24 at 1401, For 4 doses, Maximum cumulative dose 2 mg, PACU, PACU ondansetron (ZOFRAN) injection 4 mg 4 mg Every 15 min PRN, intravenous, nausea, Starting on Renate 06/24/24 at 1401, For 2 doses, 1st line for nausea For IV push, give over 2 - 5 minutes., PACU oxyCODONE (ROXICODONE) immediate release tablet 5 mg (COMPLETED) 5 mg Once as needed, oral, moderate pain (4-6), severe pain (7-10), For patients going home if they have not received hydromorphone or morphine., Starting on Renate 06/24/24 at 1401, For 1 dose, Look-alike/Sound-alike medication, PACU 1512 (Given - Provid er: Maria R Bruner RN) thrombin (bovine) topical solution (CANCELED) As needed, Starting on Renate 06/24/24 at 1326, Intra-op 1326 (Given - Provid er: Estevan Husain MD - Comment: cottonoid irrigation) vancomycin (VANCOCIN) injection (CANCELED) As needed, Starting on Renate 06/24/24 at 1326, Intra-op 1326 (Given - Provid er: Estevan Husain MD - Comment: irrigation) documented in this encounter Care Teams Web Worker Relationship Specialty Start Date End Date Michael Pal MD [address] [place] [facility] [address] [place] [id number] PCP - General Family Medicine 06/17/24 documented as of this encounter
--- OUTSIDE RECORDS SUMMARY | 2024-06-24 13:00 | XMS_ITS | Encounter Summary ---
Author Organization [employer] Address [address] [place] [address] Care Team Providers Care Electro Mechanical Technologist Name Role Phone Michael Pal MD Primary Care Provider [phone] Reason for Visit * Auth/Cert (Routine) Specialty Diagnoses / Procedures Referred By Contkaylee oden Referred To Contact Diagnoses Lumbar radiculopathy Lumbar radiculopathy Procedures CT SHORT FACETECTOMY & FORAMOTOMY 1 VRT SGM LUMBAR LAMINECTOMY, SPINE, LUMBAR Estevan Husain MD [address] [place] [address] Phone: tel: fax: Referral ID Status Reason Start Date Expiration Date Visits Re quested Visits Authorized [id number] 05/10/2024 1 1 Encounter Details Date Type Department Care Team (Late st Contact Info) Description 06/24/2024 1:00 PM EDT - 06/24/2024 3:12 PM EDT Surgery [facility] Operating Room [address] [place] [id number] Estevan Husain MD [address] [place] [address] (RT SIDED L4-L5 MICROSCOPIC DECOMPRESSION) Social History Tobacco Use Types Packs/Day Years [...] Sign Reading Time Taken Comments Blood Pressure 159/76 06/24/2024 3:10 PM EDT Pulse 73 06/24/2024 3:10 PM EDT Temperature 36.1 C (97 F) 06/24/2024 2:20 PM EDT Respiratory Rate 22 06/24/2024 3:10 PM EDT Oxygen Saturation 94% 06/24/2024 3:10 PM EDT Inhaled Oxygen Concentration - - Weight 82.8 kg (182 lb 9.6 oz) 06/24/2024 11:08 AM EDT Height 177.8 cm (5' 10 ) 06/24/2024 11:08 AM EDT Body Mass Index 26.2 06/24/2024 [...] Everywhere. * Outpatient Surgery Adult Care After (Bengali) * Surgical Spinal Decompression Care After (Bengali) documented in this encounter Medications at Time [...] COPD (chronic obstructive pulmonary disease) (HCC) and [place] (hard of hearing). Surgical History He has [...] cyanocobalamin, vitamin B-12, (VITAMIN B-12 ORAL) oral vjxmvceyykz-hotndsxsg-vgrvjmwu 100-62.5-25 mcg dsdv Inhale by mouth daily. 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 PROCEDURE: Right L4-5 hemilaminectomy, mesial facetectomy, foraminotomy DIRECTOR OF FUNDRAISING: Caridad Licona PA-C TYPE OF ANESTHESIA: General [...] HOUR Routine 06/24/2024 2:[address] SHORT FACETECTOMY & FORAMOTOMY 1 VRT SGM [...] - 110 mg/dL 06/24/2024 11:30 AM EDT [facility] Comment: In the event of poor peripheral blood flow, venous or arterial blood should be used due to the potential of erroneous results. No action Require Plane Tableman [id number] 06/24/2024 11:30 AM EDT [facility] Blood WHOLE BLOOD / Unknown 06/24/2024 11:29 AM EDT 06/24/2024 11:29 AM EDT Narrative [facility] - 06/24/2024 11:30 AM EDT Plane [employer]man ID is - [id number] Estevan Husain MD POINT OF CARE TEST ORDERABLES Fi nal Result [facility] [address] [phone] documented in this encounter Visit Diagnoses Diagnosis Lumbar radiculopathy Thoracic or lumbosacral neuritis or radiculitis, unspecified documented in this encounter Administered Medications Inactive Administered [...] dose Fentanyl given if ordered., Starting on Renaet 06/24/24 at 1401, For 4 doses, Maximum [...] Given 06/24/2024 3:12 PM EDT 5 mg thrombin (bovine) topical solution As needed, Starting on Renate 06/24/24 at 1326, Intra-op Given 06/24/2024 1:26 PM EDT 5,000 Units vancomycin (VANCOCIN) injection As needed, Starting on Renate 06/24/24 at 1326, Intra-op Given 06/24/2024 1:26 PM EDT 1,000 mg documented in this encounter Active and [...] irrigation) documented in this encounter Care Teams Electro Mechanical Technologist Relationship Specialty Start Date End Date Michael Pal MD [address] [place] [facility] [address] [place] [address] PCP - General Family Medicine 06/17/24 documented as of this encounter
--- OUTSIDE RECORDS SUMMARY | 2024-06-24 13:01 | XMS_ITS | Encounter Summary ---
Author Organization [email or web address] Address [address] [place] [address] Care Team Providers Care Telegraph Service Rater Name Role Phone Michael Pal MD Primary Care Provider [phone] Reason for Visit * Auth/Cert (Routine) Specialty Diagnoses / Procedures Referred By Contac t Referred To Contact Diagnoses Lumbar radiculopathy Lumbar radiculopathy Procedures [place] SHORT FACETECTOMY & FORAMOTOMY 1 VRT SGM LUMBAR LAMINECTOMY, SPINE, LUMBAR Estevan Husain MD [address] [place] [address] Phone: tel: fax: Referral ID Status Reason Start Date Expiration Date Visits Re quested Visits Authorized [id number] 05/10/2024 1 1 Encounter Details Date Type Department Care Team (Late st Contact Info) Description 06/24/2024 1:01 PM EDT Anesthesia Event [facility] Operating Room 1 [place] [address] Zackery Prado MD [address] [place] [address] Leslie Mancilla CRNA [address] [place], [place] [id number] Anesthesia Record Procedure Summary Procedure Name Responsible Anesthesiologist Anesthesia Start Time Anesthesia Stop Time (RT SIDED L4-L5 MICROSCOPIC DECOMPRESSION) (Right) Zackery Prado MD 06/24/24 1301 06/24/24 1427 Events Date Time Event Comment 06/24/2024 1301 An Start Patient identif ied and chart reviewed. 1301 An Start Data Anesthesia mac alethea and monitors checked. 1306 An Induction 1307 An Intubation 1308 Pre-Induction Eval FDA anest hesia machine pre-use checkout completed. Patient status reassessed prior to start of anesthesia care. 1311 Anesthesia Ready 1412 An Extubation 1413 an stop data 1427 Handoff to Receiving I compl eted my handoff to the receiving clinician during which we: 1. Identified the patient. 2. Identified the responsible provider. 3. Reviewed the pertinent medical history. 4. Discussed the surgical course. 5. Reviewed intra-op anesthesia management and issues during anesthesia. 6. Set expectations for post-procedure period. 7. Allowed opportunity for questions and acknowledgement of understanding. 1427 An Stop Meds Name Total ceFAZolin (ANCEF) 2 g in sodium chloride 0.9 % (NS) MBP 50 mL IVPB 2 g fentaNYL (SUBLIMAZE) injection 100 mcg propofol (DIPRIVAN) injection 10 mg/mL b olus 200 mg lidocaine (PF) injection 10 mg/mL (1%) 1 0 mL rocuronium (ZEMURON) 50 mg/5 mL injectio n 50 mg dexamethasone (DECADRON) injection 4 mg/ mL 4 mg phenylephrine (LA-SYNEPHRINE) injection 200 mcg ondansetron (ZOFRAN) injection 4 mg neostigmine (PROSTIGMINE) 1 mg/mL inject ion 5 mg glycopyrrolate (ROBINUL) injection 0.6 m g lactated Ringer's infusion 800 mL * Agents Name O2 N2O Air SEVOFLURANE * Blood No blood administrations on file. Lines, Drains, and Airways Type Details Placement Removal Wound 06/24/24; 1358; Inci jeffrey; Back; Not applicable; covaderm 06/24/24 1358 by Reymundo Monzon RN Peripheral IV Placement Date: 06/08 10/01; Placement Time: 112; Size: 20 G; Orientation: Left, Posterior; Location: Wrist; Site Prep: Chlorhexidine ; Inserted by: Sara Cardoza RN; Insertion attempts: 1; Securement Method: Taped; Removal Date: 06/24/24; Removal Time: 1630 06/24/24 1126 by Sara Cardoza RN 06/24/24 1630 by Zina Mcclelland RN ETT Placement Date 06/24; Placement Time 1307 (created via procedure documentation); Airway Size 8; Airway Cuffed Yes; Removal Date 06/24/24; Removal Time 14106/24/24 1307 by Evelyne Parkinson CRNA 06/24/24 1412 by Tucker Sanchez CRNA documented in this encounter Social History Tobacco Use Types Packs/Day Years [...] on file documented as of this encounter OR Notes * Anesthesia Postprocedure Evaluation - Tucker Sanchez CRNA - 06/24/2024 2:27 PM EDT Patient: Hardy De Jesus Procedure Summary Date: 06/24/24 Room / Location: [facility] OR OPERATING ROOM Anesthesia Start: 1301 Anesthesia Stop: Procedure: (RT SIDED L4-L5 MICROSCOPIC DECOMPRESSION) (Right) Diagnosis: Lumbar radiculopathy (Lumbar radiculopathy) Surgeons: Estevan Husain MD Responsible Provider: Zackery Prado MD Anesthesia Type: general ASA Status: 2 Anesthesia Type: general Vitals Value Taken Time BP 170/79 06/24/24 1420 Temp 97.5 06/24/24 1427 Pulse 76 06/24/24 1426 Resp 14 06/24/24 1427 SpO2 95 % 06/24/24 1426 Vitals shown include unfiled device data. Ht 1.778 m (5' 10 ) Wt 82.8 kg (182 lb 9.6 oz) BMI 26.20 kg/m?? Anesthesia Post Evaluation Patient location during evaluation: PACU Patient participation: complete - patient participated Level of consciousness: awake Pain score: 0 Pain management: adequate Multimodal analgesia pain management approach Airway patency: patent Two or more strategies used to mitigate risk of obstructive sleep apnea Cardiovascular status: stable Respiratory status: nasal cannula Hydration status: stable Color: [place] Activity: Moves 4 extremities Inotropes/Vasopressors: N/A No notable events documented. Tucker Sanchez CRNA 06/24/2024 2:27 PM EDT * Anesthesia Procedure Notes - Evelyne Parkinson CRNA - 06/24/2024 1:13 PM EDT Associated Order(s): Intubation Intubation Authorized by: Zackery Prado MD Performed by: Evelyne Parkinson CRNA Date/Time: 06/24/2024 1:07 PM Urgency: elective Indications and Patient Condition Indications for airway management: anesthesia and airway protection Spontaneous Ventilation: absent Sedation level: general anesthesia Preoxygenated: yes Patient position: sniffing no Mask difficulty assessment: 2 - vent by mask + OA or adjuvant +/- NMBA no Final Airway Details Final airway type: endotracheal airway Endotracheal tube type: ETT Cuffed: yes Successful intubation technique: direct laryngoscopy Facilitating devices/methods: intubating stylet Endotracheal tube insertion site: oral Blade: Iza Blade size: #3 ETT size (mm): 8.0 Cormack-Lehane Classification: grade I - full view of glottis Placement verified by: chest auscultation and capnometry Measured from: gums ETT to gums (cm): 23 Number of attempts at approach: 1 Number of other approaches attempted: 0 Additional Comments Atraumatic intubation * Anesthesia Preprocedure Evaluation - Pauline Bautista MD - 06/17/2024 8:10 AM EDT Patient: Hardy De Jesus Date/Time: 06/24/24 1300 Procedure: (RT SIDED L4-L5 MICROSCOPIC DECOMPRESSION) (Right) Location: [facility] OR [address] [place] [address] OPERATING ROOM Surgeons: Estevan Husain MD Relevant Problems No relevant active problems Past Medical History: Diagnosis Date COPD (chronic obstructive pulmonary disease) (HCC) ROS/MED HX Reviewed: Family history of anesthetic complications reviewed and Allergies reviewed Pulmonary: (+) COPD,,, Cardiovascular: GI/Hepatic/Renal: Neuro/Psych: Endo/Other: Hemo/Onc: Past Surgical History: Procedure Laterality Date BACK SURGERY WRIST FRACTURE SURGERY Left Echo Results (last 7 days) No results found for the last 168 hours. Current Outpatient Medications Medication Instructions albuterol 90 mcg/actuation inhaler inhalation, Every 6 hours PRN ascorbic acid (VITAMIN C ORAL) oral, Daily cholecalciferol, vitamin D3, (VITAMIN D3 ORAL) oral, Daily cyanocobalamin, vitamin B-12, (VITAMIN B-12 ORAL) oral fmfupzzswij-esjnypomm-fgrjauch 100-62.5-25 mcg dsdv Inhale by mouth daily. ibuprofen (MOTRIN) 800 mg, oral, Daily as needed rosuvastatin (CRESTOR) 10 mg, oral, Daily ubidecarenone (ULTRA COQ10 ORAL) oral, Daily No results found for: WBC , RBC , HGB , HCT , PLT Clinical information reviewed: Physical Exam Airway Mallampati: III TM distance: >3 FB Neck ROM: full Cardiovascular - normal exam Dental (+) lower dentures, upper dentures Pulmonary - normal exam Abdominal Other findings: smoker Anesthesia Plan ASA 2 general The patient is not a current smoker. Patient was not previously instructed to abstain from smoking on day of procedure. Patient did not smoke on day of procedure. intravenous induction Anesthetic plan and risks discussed with patient. No DMEs documented.Anesthesia Pre Evaluation Mr. Hardy De Jesus is a 73 y.o. male being evaluated for the following: Date/Time: 06/24/24 1300 Procedure: (RT SIDED L4-L5 MICROSCOPIC DECOMPRESSION) (Right) Location: [facility] OR OPERATING ROOM Surgeons: Estevan Husain MD Allergies Allergen Reactions Benzocaine Other (See Comments) Dizziness; passes out Procaine Other (See Comments) Dizziness; passes out Relevant Problems No relevant active problems Clinical information reviewed: NPO Status No data recorded Physical Exam Airway Mallampati: III TM distance: >3 FB Neck ROM: full Cardiovascular - normal exam Dental (+) lower dentures, upper dentures Pulmonary - normal exam Abdominal Other findings: smoker Anesthesia Plan ASA 2 Planned anesthetic: general Anesthesia Plan Factors- The patient is not a current smoker. Patient was not previously instructed to abstain from smoking on day of procedure. Patient did not smoke on day of procedure. Induction: intravenous Informed Consent- Anesthetic plan and risks discussed with patient. documented in this encounter Plan of Treatment Not on file documented as of this encounter Procedures Procedure Name Priority Date/Time Associated Diagnosis Comments ANESTHESIA INTUBATION Routine 06/24/2024 1:07 PM EDT documented in this encounter Results * AN SINGLE LUMEN INTUBATION (06/24/2024 1:07 PM EDT) Evelyne Jean CRNA - 06/24/2024 1:07 PM EDT Evelnye Parkinson CRNA 06/24/2024 1:19 PM Intubation Authorized by: Zackery Prado MD Performed by: Evelyne Parkinson CRNA Date/Time: 06/24/2024 1:07 PM Urgency: elective Indications and Patient Condition Indications for airway management: anesthesia and airway protection Spontaneous Ventilation: absent Sedation level: general anesthesia Preoxygenated: yes Patient position: sniffing no Mask difficulty assessment: 2 - vent by mask + OA or adjuvant +/- NMBA no Final Airway Details Final airway type: endotracheal airway Endotracheal tube type: ETT Cuffed: yes Successful intubation technique: direct laryngoscopy Facilitating devices/methods: intubating stylet Endotracheal tube insertion site: oral Blade: Iza Blade size: #3 ETT size (mm): 8.0 Cormack-Lehane Classification: grade I - full view of glottis Placement verified by: chest auscultation and capnometry Measured from: gums ETT to gums (cm): 23 Number of attempts at approach: 1 Number of other approaches attempted: 0 Additional Comments Atraumatic intubation Zackery Prado MD ANESTHESIA ORDERABLES Edit ed Result - Final documented in this encounter Visit Diagnoses Not on filedocumented in this encounter Administered Medications Inactive Administered Medications - up to 3 most recent administrations Medication Order MAR Action Action Date Dose Rate Site ceFAZolin (ANCEF) 2 g in sodium chloride 0.9 % (NS) MBP 50 mL IVPB 2 g Once, intravenous, Administer over 30 Minutes, On Renate 06/24/24 at 1200, For 1 dose, Pre-op, Please choose an indication: Surgical Prophylaxis New Bag 06/24/2024 1:18 PM EDT 2 g dexAMETHasone (DECADRON) injection As needed, intravenous, Starting on Renate 06/24/24 at 1321, Anesthesia Intra-op Given 06/24/2024 1:21 PM EDT 4 mg fentaNYL PF (SUBLIMAZE) injection As needed, intravenous, Starting on Renate 06/24/24 at 1306, Anesthesia Intra-op Given 06/24/2024 1:37 PM EDT 50 mcg Given 06/24/2024 1:06 PM EDT 50 mcg glycopyrrolate (ROBINUL) injection As needed, intravenous, Starting on Renate 06/24/24 at 1404, Anesthesia Intra-op Given 06/24/2024 2:04 PM EDT 0.6 mg lactated Ringer's infusion 100 mL/hr Continuous, intravenous, Starting on Renate 06/24/24 at 1200, Pre-op Restarted 06/24/2024 2:13 PM EDT Continued by Anesthesia 06/24/2024 1:01 PM EDT 100 mL/hr New Bag 06/24/2024 11:26 AM EDT 100 mL/hr 100 mL/hr lidocaine (PF) injection 10 mg/mL (1%) As needed, intravenous, Starting on Renate 06/24/24 at 1306, Anesthesia Intra-op Given 06/24/2024 1:06 PM EDT 10 mLs neostigmine methylsulfate (PROSTIGMINE) injection As needed, intravenous, Starting on Renate 06/24/24 at 1404, Anesthesia Intra-op Given 06/24/2024 2:04 PM EDT 5 mg ondansetron (ZOFRAN) injection As needed, intravenous, Starting on Renate 06/24/24 at 1356, Anesthesia Intra-op Given 06/24/2024 1:56 PM EDT 4 mg phenylephrine (AL-SYNEPHRINE) injection As needed, intravenous, Starting on Renate 06/24/24 at 1343, Anesthesia Intra-op Given 06/24/2024 1:46 PM EDT 100 mcg Given 06/24/2024 1:43 PM EDT 100 mcg propofol (DIPRIVAN) injection 10 mg/mL bolus As needed, intravenous, Starting on Renate 06/24/24 at 1306, Anesthesia Intra-op Given 06/24/2024 1:07 PM EDT 50 mg Given 06/24/2024 1:06 PM EDT 150 mg rocuronium (ZEMURON) injection As needed, intravenous, Starting on Renate 06/24/24 at 1306, Anesthesia Intra-op Given 06/24/2024 1:06 PM EDT 50 mg documented in this encounter Care Teams Telegraph Service Rater Relationship Specialty Start Date End Date Michael Pal MD [address] [facility] [address] [place] [address] PCP - General Family Medicine 06/17/24 documented as of this encounter
--- OUTSIDE RECORDS SUMMARY | 2024-08-21 10:36 | XMS_ITS | Encounter Summary ---
Author Organization [employer] Address [address] [place] [address] Care Team Providers Care Plate Drying Machine Tender Name Role Phone Michael Pal MD Primary Care Provider [phone] Encounter Details Date Type Department Care Team (Late st Contact Info) Description 02/06/2018 Transcribed Document [facility] Neurology - [facility] [address] [address] Estevan Husain MD [address] [place], [place] [id number] Social History Tobacco Use Types Packs/Day Years Used Date Smoking Tobacco: Never Assessed Sex and Gender Information Value Date Recorded Sex Assigned at Not on file Legal Sex Male 8:25 PM CDT Gender Identity Not on file Sexual Orientation Not on file documented as of this encounter Miscellaneous Notes * Cerner Conversion Note - Estevan Husain MD - 02/06/2018 12:19 PM EST Patient: HARDY DE JESUS THO Age: 67 Years Sex: Male : 1950 Please update the History and Physical on your patient by completing the appropriate section (H&Ps performed within 30 days prior to admission must be updated prior to surgery/procedure) _X__ UPDATE: The History and Physical performed by:_Estevan Husain MD on 01/15/18_ has been reviewed; patient was examined; there have been no clinically significant changes since the prior History and Physical was completed. ___ UPDATE: The History and Physical performed by:__ has been reviewed; patient was examined; clinically significant changes since the prior History and Physical was completed are indicated below: Significant Changes: documented in this encounter Plan of Treatment Not on file documented as of this encounter Visit Diagnoses Not on filedocumented in this encounter Care Teams Plate Drying Machine Tender Relationship Specialty Start Date End Date Michael Pal MD [address] [place] [address] PCP - General Family Medicine 06/17/24 documented as of this encounter
--- OUTSIDE RECORDS SUMMARY | 2024-08-21 10:36 | XMS_ITS | Clinical Summary ---
Author Organization [facility] Address [address] [place] [address] Care Team Providers Care Axminster Rug Setter Name Role Phone Michael Pal MD Primary Care Provider [phone] Allergies Active Allergy Reactions Criticality Noted Date Comments Benzocaine Other (See Comments) 06/16/2024 Dizziness; passes out Procaine Other (See Comments) 06/16/2024 Dizziness; passes out Medications fluticasone-umec lidin-vilanter 100-62.5-25 mcg dsdv Inhale by mouth daily. Active rosuvastatin (CRESTOR) 10 MG tablet Take 1 tablet (10 mg total) by mouth daily. Active ascorbic acid (VITAMIN C ORAL) Take by mouth daily. Active cholecalciferol, vitamin D3, (VITAMIN D3 ORAL) Take by mouth daily. Active cyanocobalamin, vitamin B-12, (VITAMIN B-12 ORAL) Take by mouth. Active ubidecarenone (ULTRA COQ10 ORAL) Take by mouth daily. Active ibuprofen (MOTRIN) 800 MG tablet Take 1 tablet (800 mg total) by mouth daily as needed for pain. Active albuterol 90 mcg/actuation inhaler Inhale by mouth every 6 (six) hours as needed for wheezing. Active acetaminophen (TYLENOL) 650 MG CR tablet Take 1 tablet (650 mg total) by mouth every 8 (eight) hours as needed for pain. Active Encounters Date Type Department Care Team Description 06/24/2024 1:01 PM EDT Anesthesia Event [facility] [place] Operating Room [address] [place] [address] Zackery Prado MD Cornea, Mihaela, MD 06/24/2024 1:00 PM EDT - 06/24/2024 3:12 PM EDT Surgery [facility] [place] Operating Room [address] [place] [address] Estevan Husain MD (RT SIDED L4-L5 MICROSCOPIC DECOMPRESSION) 06/24/2024 10:39 AM EDT - 06/24/2024 4:33 PM EDT Hospital Encounter [facility] [place] Operating Room [address] [place] [address] Estevan Husain MD Discharge Disposition: Home or Self Care 06/24/2024 Travel 06/17/2024 7:23 AM EDT - 06/17/2024 11:59 PM EDT Hospital Encounter [facility] [place] Preadmission Testing 1 [place] [address] Estevan Husain MD Preop testing (Primary Dx) Discharge Disposition: Home or Self Care 06/17/2024 Travel from Last 3 Months Social History Tobacco Use Types Packs/Day Years Used Date Smoking Tobacco: Every Day Cigarettes Smokeless Tobacco: Never Tobacco Cessation:Ready to Q uit: Not Asked Alcohol Use Standard Drinks/Week Comments Yes 0 [...] on file Sexual Orientation Not on file Last Filed Vital Signs Vital Sign Reading Time Taken Comments Blood Pressure 134/76 06/24/2024 4:11 PM EDT Pulse 82 06/24/2024 4:11 PM EDT Temperature 37.3 C (99.1 F) 06/24/2024 3:56 PM EDT Respiratory Rate 16 06/24/2024 4:11 PM EDT Oxygen Saturation 92% 06/24/2024 4:1 1 PM EDT pt using incentive spirometry, 2901-3302 Inhaled Oxygen Concentration - - Weight 82.8 kg (182 lb 9.6 oz) 06/24/2024 11:08 AM EDT Height 177.8 cm (5' 10 ) 06/24/2024 11: 08 AM EDT Body Mass Index 26.2 06/24/2024 11:08 AM EDT Plan of Treatment Health Maintenance Due Date Last Done Comments CT Colonography 1950 Colonoscopy 1950 Colorectal Cancer Screening 1950 FOBT/FIT 1951 Fit-DNA (Cologuard) 1950 Sigmoidoscopy 1950 Tobacco Cessation Counseling and Screening (12+) 1963 Hepatitis C Screening 07/30/1969 Shingles Vaccine (Zoster) (1 of 2) 07/30/2001 DTAP/TDAP/TD VACCINES (2 - Td or Tdap) 05/14/2006 Abdominal Aortic Aneurysm (AAA) Screen 07/30/2016 Pneumococcal 50+ years (2 of 2 - PCV) 01/10/202105/2019 COVID-19 VACCINE ( season) 2023, 07/14/2020 Falls Risk Screening 03/10/2024 Medicare IPPE (Welcome to Medicare) G0402 03/10/2024 Influenza Vaccine (Season Ended) 2024 Depression Screening (12+) 06/17/2025 06/17/2024 Respiratory Syncytial Virus (RSV) Adult or (1 - 1-dose 75+ series) 07/30/2026 Procedures Procedure Name Priority Date/Time Associated Diagnosis Comments FL C-ARM < 1 HOUR Routine 06/24/2024 2:1 0 PM EDT ANESTHESIA INTUBATION Routine 06/24/2024 1:07 PM EDT MT SHORT FACETECTOMY & FORAMOTOMY 1 VRT SGM LUMBAR 06/24/2024 1:01 PM EDT Lumbar radiculopathy Case Notes IN 1100 , 1.5 HR (R), PASS 1300 TR NOVA GLUCOSE POC Routine 06/24/2024 11:2 9 AM EDT URINALYSIS WITHOUT MICROSCOPIC Routine 06/17/2024 9:13 AM EDT Preop testing CBC HEMOGRAM (SJ-BKR) STAT 06/17/2024 8:13 AM EDT Preop testing BASIC METABOLIC PANEL STAT 06/17/2024 8:13 AM EDT Preop testing from Last 3 Months Results * FL C-ARM < 1 HOUR [...] Reference air kerma 1.75 mGy. Procedure Note Joes Flaheryt MD - 06/25/2024 FLUOROSCOPY WITH FILMS HISTORY: [...] MD IMG FLUOROSCOPY ORDERABLES Final Result * AN SINGLE LUMEN INTUBATION (06/24/2024 1:07 PM EDT) Evelyne Jean CRNA - 06/24/2024 1:07 PM EDT Evelyne Parkinson CRNA 06/24/2024 1:19 PM Intubation Authorized [...] ANESTHESIA ORDERABLES Edit ed Result - Final * Glucose, Nova Meter (06/24/2024 11:29 AM EDT) POC-GLUCOSE 101 70 - 110 mg/dL 06/24/2024 11:30 AM EDT [facility] Comment: In the event of poor peripheral blood flow, venous or arterial blood should be used due to the potential of erroneous results. No action Require Landscaping And Groundskeeping Laborer [id number] 06/24/2024 11:30 AM EDT [facility] Blood WHOLE BLOOD / Unknown 06/24/2024 11:29 AM EDT 06/24/2024 11:29 AM EDT Narrative [facility] - 06/24/2024 11:30 AM EDT Landscaping And Groundskeeping Laborer ID is - [id number] us Estevan Husain MD POINT OF CARE TEST ORDERABLES Fi nal Result Performing Organization Address City/State/[facility] Co de Phone Number [facility] [address] [place] [address] * (ABNORMAL) Urinalysis without Microscopic (06/17/2024 9:13 AM EDT) Color, UA Colorless 06/17/2024 9:22 AM EDT [facility] Clarity, UA Clear Clear 06/17/2024 9:22 AM EDT [facility] Specific [place], UA 1.005 1.005 - 1.030 06/17/2024 9:22 AM EDT [facility] pH, UA 5.5(L) 6.0 - 8.0 06/17/2024 9:22 AM EDT [facility] Leukocytes, UA Negative Negative 06/17/2024 9:22 AM EDT [facility] Nitrite, UA Negative Negative 06/17/2024 9:22 AM EDT [facility] Protein, UA Negative Negative 06/17/2024 9:22 AM EDT [facility] Glucose, UA Normal Normal 06/17/2024 9:22 AM EDT [facility] Ketones, UA Negative Negative 06/17/2024 9:22 AM EDT [facility] Urobilinogen, UA Normal Normal 06/17/2024 9:22 AM EDT [facility] Bilirubin, UA Negative Negative 06/17/2024 9:22 AM EDT [facility] Blood, UA Negative Negative 06/17/2024 9:22 AM EDT [facility] Specimen Source Urine, Clean Catch 06/17/2024 9:22 AM EDT [facility] Urine URINE SPECIMEN COLLECTION, CLEAN CATCH / Unknown 06/17/2024 9:13 AM EDT 06/17/2024 9:13 AM EDT us Estevan Husain MD URINE ORDERABLES Final Result [facility] [address] [phone] * (ABNORMAL) CBC - Hemogram (SJ-BKR) (06/17/2024 8:13 AM EDT) WBC 9.2(H) 4.2 - 9.1 K/ L 06/17/2024 9:18 AM EDT [facility] RBC 4.06(L) 4.63 - 6.08 M/ L 06/17/2024 9:18 AM EDT [facility] Hemoglobin 13.6(L) 13.7 - 17.5 GM/DL 06/17/2024 9:18 AM EDT [facility] Hematocrit 41.0 40.1 - 51.0 % 06/17/2024 9:18 AM EDT [facility] MCV 101(H) 79 - 92 fL 06/17/2024 9:18 AM EDT [facility] MCH 33.5(H) 25.7 - 32.2 pg 06/17/2024 9:18 AM EDT [facility] MCHC 33.2 32.3 - 36.5 GM/DL 06/17/2024 9:18 AM EDT [facility] RDW 12.3 11.6 - 14.4 % 06/17/2024 9:18 AM EDT [facility] Platelets 254 140 - 375 K/CU MM 06/17/2024 9:18 AM EDT [facility] MPV 9.8 9.4 - 12.4 fL 06/17/2024 9:18 AM EDT [facility] Blood Venipuncture / Unknown 06/17/2024 8:13 AM EDT 06/17/2024 9:14 AM EDT us Estevan Husain MD LAB BLOOD ORDERABLES Final Resul t [facility] [address] [phone] * (ABNORMAL) Basic Metabolic Panel (06/17/2024 8:13 AM EDT) Sodium 141 136 - 145 meq/L 06/17/2024 9:38 AM EDT [facility] Potassium 4.2 3.4 - 5.1 meq/L 06/17/2024 9:38 AM EDT [facility] CO2 23 22 - 29 meq/L 06/17/2024 9:38 AM EDT [facility] Chloride 109 98 - 112 meq/L 06/17/2024 9:38 AM EDT [facility] Glucose 59(L) 82 - 115 mg/dL 06/17/2024 9:38 AM EDT [facility] BUN 9.6 8.4 - 25.7 mg/dL 06/17/2024 9:38 AM EDT [facility] Creatinine 0.82 0.72 - 1.25 mg/dL 06/17/2024 9:38 AM EDT [facility] BUN/Creatinine 12 8 - 20 06/17/2024 9:38 AM EDT [facility] Calcium 9.0 8.4 - 10.2 mg/dL 06/17/2024 9:38 AM EDT [facility] Anion Gap 13(H) 4 - 12 06/17/2024 9:38 AM EDT [facility] eGFR (mL/min/1.73m2) 93 >=60 mL/min/1.7 3m2 06/17/2024 9:38 AM EDT [facility] Osmolality Calc 278.0 mOsm/kg 9:38 AM EDT [facility] Blood Venipuncture / Unknown 06/17/2024 8:13 AM EDT 06/17/2024 9:14 AM EDT us Estevan Husain MD LAB BLOOD ORDERABLES Final Resul t [facility] [address] [place] [id number], [facility] [phone] from Last 3 Months Insurance [id number] (Home) [address] [place] [address] [employer] MAP Advance Directives For more information, please contact: [phone] Documents on File Type Date Recorded Patient Livestock Caretaker Expl anation Advance Directives and Livin g Will 06/24/2024 10:45 AM Care Teams Axminster Rug Setter Relationship Specialty Start Date End Date Michael Pal MD [address] [facility] [address] [place] [address] PCP - General Family Medicine 06/17/24
--- OUTSIDE RECORDS SUMMARY | 2024-08-21 10:36 | XMS_ITS | Data Portability ---
Author Organization [facility] Address [address] [facility] [address] [place] [address] Care Team Providers Care Clinical Data Management Director Name Role Phone AMELIA BUSH Primary Care Provider Assessment Encounter Date Assessment Date Assessment LastModified by Organization Details LastModified Time 01/19/2024 01/19/2024 Mr. De Jesus is a [...] believe around the holidays in 2023 at [facility]. They did an injection with Dr. [...] was a lumbar MRI completed 07/15/2017 at [facility]. He did have thoracic and lumbar MRIs completed at [facility] on 11/25/2023. Leticia, our chief of surgery, had his CD with this imaging. Dr. Clark and I did personally review these images and read the radiologist report. 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 Nurse practitioner visit PLAN: Request all imaging results from [facility] Will contact Mr. De Jesus after determining what additional, if any, imaging is needed I spoke with Mr. De Jesus and his that unfortunately, I cannot find any updated imaging of his lumbar spine. His reports that she brought a CD herself to our office from [facility] last year. I did question if they took that to their appointment with Dr. Longo after seeing our office in January, but they both report they did not take it with them as he has access to [facility]. We will request all of his records from [facility] and depending on when the last lumbar [...] for a lumbar MRI without contrast at [facility] as soon as possible and for them to bring the CD to our office after it is complete for Dr. Clark to review to confirm his surgical plan. PLAN: Lumbar MRI without contrast [email or web address] Not available 06/07/2024 15:27:04 08/05/2024 08/05/2024 Mr. De Jesus is a 74-year-old gentleman status post right L4-5 decompression performed on June 24, 2024. 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 I am going to speak with our interventional pain management doctors and see if we can get him a blood patch today to facilitate this healing. We will schedule him for a 6-week follow-up to see how he is doing. I told him to continue to take it easy with no heavy lifting or strenuous activity. He is to lay flat if the headache becomes significant. Not available 08/05/2024 08:49:22 Plan of Treatment Reminders Order Date Submit Date Provider Last Modified By Organization Details Last Modified Time Details Appointments STAPLE REMOVAL 2024 09:00A M Neurosurg ery_nurse Not available Not available Not available Lab None recorded . Referral None recorded . Procedures None recorded . Surgeries None recorded . Imaging None recorded . Medication Orders None recorded . Patient TargetsNo targets recorded. Patient InstructionsNo instructions recorded. Reason for Referral None Reported. Results Created Date Observation Date Name Description Value Unit Range Abnormal Flag Note LastModifiedBy Organization Detail LastModifiedTime 06/08/1911/25/2023 MRI, thora cic spine , w/wo contr ast No observ ation record ed. [email or web address] [facility] [address], [place], [address], 06/09/2024 08:38:22 06/08/1911/25/2023 MRI, lumba r spine , w/wo contr ast No observ ation record ed. [email or web address] [facility] [address], [place], [address], 06/09/2024 08:38:58 06/23/19 25 06/22/2024 MRI, lumba r spine , w/o contr ast No observ ation record ed. [email or web address] Not Available 08:47:50 Result Notes None recorded. Procedures Surgical History Date Name Laterality Status Provider Name and Address Organization Details Recorded Time Epidural Blood Patch - Rosales completed KATHRIN FIELDS MD [address] [place] [address], [phone], [facility] 08/05/2024 11:26:54 Unlisted px hands/fingers completed [facility] 01/12/2018 14:42:22 Back Surgery completed [facility] 01/19/2024 08:11:42 Imaging Results None recorded. Procedure Notes None recorded. Medical Equipment None Reported. Allergies Allergen ID Allergen Name Allergen Category Reaction Reaction Severity Criticality Documentation Date Start Date Code Code System Note Provider Name and Address Organization Details Recorded Time 625593 lidocaine medicatio n rash mild low 08/05/2024 6387 RxNorm Leesa King [facility] 08:58:49 Medications Name Sig Start Date Stop Date Status Note LastModified by Organization Details LastModified Time celecoxib 200 mg capsule 01/18 completed Not Available Not Available Not Available cyclobenzap rine 10 mg tablet TAKE 1 TABLET BY MOUTH THREE TIMES A DAY NEEDED FOR MUSCLE SPASM active Not Available Not Available No t Available prednisone 10 mg tablet TAKE 2 TABLETS BY MOUTH DAILY FOR BACK PAIN active Not Available Not Available No t Available azithromyci n 250 mg tablet 01/18 completed Not Available Not Available Not Available ibuprofen 800 mg tablet TAKE 1 TABLET BY MOUTH EVERY 8 HOURS NEEDED FOR PAIN active Not Available Not Available No t Available fluconazole 150 mg tablet TAKE 1 TABLET BY MOUTH WEEKLY active Not Available Not Available No t [...] 1 tablet every 6 hours by oral route as needed. 2024 active Not Available Not Available Not Avai lable dexamethaso ne 4 mg tablet TAKE 1 TABLET BY MOUTH TWICE DAILY 01/18 completed Not Available Not Available Not Available gabapentin 300 mg capsule 01/18 completed Not Available Not Available Not Available methylpredn isolone 4 mg tablets in a dose pack TAKE 6 TABLETS ON DAY 1 DIRECTED ON PACKAGE AND DECREASE BY 1 TAB EACH DAY FOR A TOTAL OF 6 DAYS active Not Available Not Available No t Available cefdinir 300 mg capsule TAKE 1 CAPSULE BY MOUTH TWICE A DAY active Not Available Not Available No t Available oxycodone 5 mg tablet TAKE 1 [...] Updated DateTime 06/07/2024 177.8 cm 26.4 kg/m2 59537 g 128 mm[Hg] 84 mm[Hg] Vandana Benitez [facility] 08:20:11 Date Recorded Body height Provider Name an d Address Organization Details Last Updated DateTime 08/05/2024 177.8 cm Angelina Maddox [facility] 08/05/2024 08:42:17 Date Recorded Body height Body mass index (BMI) Body weight Systolic blood pressure Diastolic blood pressure Provider Name and Address Organization Details Last Updated DateTime 01/19/2024 177.8 cm 26.4 kg/m2 57534 g 132 mm[Hg] 82 mm[Hg] Angelina Maddox [facility] 08:17:53 Social History Question Answer Notes LastModified by Organizat ion Details LastModified Time Tobacco Smoking Status Current Every Day Smoker Angelina Maddox [facility] 01/12/2018 14:42:05 What Was The Date [...] SNOMED-CT Code Diagnosis ICD10 Code Diagnosis Note [id number] TERESA CLARK MD [facility] [address] [place] [address] 01/12/2018 13:55:10 01/13/2018 14:50:47 Lumbar radiculopathy [id number] M54.16 [id number] TERESA CLARK MD [facility] [address] [place] [address] 03/16/2018 13:39:01 03/20/2018 08:46:57 Postoperative care [id number] Z48.89 [id number] TERESA CLARK MD [facility] [address] [place] [address] 01/19/2024 08:01:43 01/20/2024 04:47:20 Lumbar radiculopathy [id number] M54.16 [id number] MONET CEBALLOS APRN [facility] [address] [place] [address] 06/07/2024 07:52:49 06/08/2024 06:06:14 Lumbar radiculopathy [id number] M54.16 [id number] TERESA CLARK MD SURGERY SCHEDULE [address] [place] [address] 07/02/2024 11:46:09 07/07/2024 06:49:58 [id number] TERESA CLARK MD [facility] [address] [place] [address] 08/05/2024 08:33:57 08/06/2024 04:45:56 Postoperative visit [id number] Z48.89 [id number] KATHRIN FIELDS MD [facility] NAL [facility]ARG[facility] [address] [facility], [address] [place] [address] 08/05/2024 09:37:18 08/05/2024 11:34:26 Post dural puncture headache [id number] G97.1 Health Concerns Section Related Observation LastModified by Organization Detai ls LastModified Time None Recorded Concern Status LastModified by Organization Details LastModified Time None Recorded Advance Directives Directive None Recorded Payers Insurance Date Sequence Insurance Name Policy Number Policy Long Covered Member ID Long Member ID Guarantor Name 08/11/2024 1 [place]MEDICARE REPLACEMENT HMO) [id number] Hardy De Jesus [id number] Hardy De Jesus 10/27/2023 1 [place] [id number] Umm De Jesus [id number] Hardy De Jesus 05/18/2024 1 [employer] (MEDICARE REPLACEMENT/AD VANTAGE - PPO) Hardy De Jesus [id number] Hardy De Jesus Notes Date Note Type Note Provider Name and Address Organization Details Recorded Time 01/19/2024 text/html Mr. De Jesus is a [...] therapy lumbar traction, TENS unit, steroids and anti-inflammatories without relief. He was on narcotics as needed. He is scheduled for a right hip injection at Dr. Longo's [facility] office tomorrow. TERESA CLARK MD [facility] [place], [address], [facility] 01/22/2024 11:18:31 06/07/2024 text/html Mr. De Jesus is a 73-year-old man who returns to the office after last being seen 01/19/2024 with continued right sided low back and lower extremity symptoms. He has previously had a right L5-S1 discectomy with Dr. Clark on 02/06/2019. MONET CEBALLOS, ANTONIO [address] [place] [address], [phone], [facility] 06/07/2024 15:27:15 08/05/2024 text/html Mr. De Jesus is a 74-year-old gentleman status post right sided L4-5 decompression performed on June 24, 2024. He has done well with respect to relief of his presenting radicular pain. However, approximately 1 week after the surgery he said he bear down hard as he was constipated, and felt a pop and subsequent headache. He has seen some improvement in his headache. It is worse throughout the day, starts frontal, and then becomes more of a posterior cervical headache. TERESA CLARK MD [facility] [place], [address], [facility] 08/05/2024 08:49:46
--- OUTSIDE RECORDS SUMMARY | 2024-08-21 10:36 | XMS_ITS | Continuity of Care Document ---
Author Organization [facility] Clini c, ESC PL[facility] OF SERVICE PROFESSIONAL CHARGES Address [address] [place] [address] Care Team Providers Care Culinary Artist Name Role Phone AMELIA BUSH Primary Care Provider Assessment No assessment recorded. Plan of Treatment Reminders Order Date Submit [...] instructions recorded. Reason for Referral None Reported. Procedures Surgical History Date Name Laterality Status Provider Name and Address Organization Details Recorded Time Epidural Blood Patch - Rosales completed KATHRIN FIELDS MD [facility] [place], [address], [facility] 08/05/2024 11:26:54 Unlisted px hands/fingers completed Angelina Maddox [facility] 01/12/2018 14:42:22 Back Surgery completed Angelina Maddox [facility] 01/19/2024 08:11:42 Imaging Results None recorded. Procedure Notes None recorded. Medical Equipment None Reported. Allergies Allergen ID Allergen Name Allergen Category Reaction Reaction Severity Criticality Documentation Date Start Date Code Code System Note Provider Name and Address Organization Details Recorded Time 043130 lidocaine medicatio n rash mild low 08/05/2024 6387 [facility]Norm [facility] 08:58:49 Medications Name Sig Start Date Stop [...] ot Available Vitals Date Recorded Body height Provider Name an d Address Organization Details Last Updated DateTime 08/05/2024 177.8 cm Angelina Maddox [facility] 08/05/2024 08:42:17 Social History Question Answer Notes LastModified by Organizat ion Details LastModified Time Tobacco Smoking Status Current Every Day Smoker Angelina Maddox [facility] 01/12/2018 14:42:05 What Was The Date [...] SNOMED-CT Code Diagnosis ICD10 Code Diagnosis Note [id number] TERESA CLARK MD [facility] [address] [place] [address] 08/05/2024 08:33:57 08/06/2024 04:45:56 Postoperative visit 502193397 Z48.89 [id number] KATHRIN FIELDS MD [facility] PL[address] OF SERVICE PROFESSIO NAL CHARGES [address], [address] [place] [address] 08/05/2024 09:37:18 08/05/2024 11:34:26 Post dural puncture headache [id number] G97.1 Health Concerns Section Related Observation LastModified by Organization Detai ls LastModified Time None Recorded Concern Status LastModified by Organization Details LastModified Time None Recorded Payers Encounter Date Sequence Insurance Name Policy Number Policy Long Covered Member ID Long Member ID Guarantor Name 08/05/2024 1 [place] (MEDICARE REPLACEMENT HMO) [id number] Hardy De Jesus [id number] Hardy De Jseus Notes Date Note Type Note Provider Name and Address Organization Details Recorded Time 08/05/2024 text/html Mr. De Jesus is a [...] a posterior cervical headache. TERESA CLARK MD [facility], [place], [address], [facility] 08/05/2024 08:49:46
--- OUTSIDE RECORDS SUMMARY | 2024-08-21 10:37 | XMS_ITS | Continuity of Care Document ---
Author Organization [facility] Clini c, NEUROSURGERY [address] [place] [address] Care Team Providers Care Computer Service Technician Name Role Phone AMELIA BUSH Primary Care Provider [phone] Assessment Encounter Date Assessment Date Assessment LastModified by Organization Details LastModified Time 08/05/2024 08/05/2024 Mr. De Jesus is a [...] Patch - Rosales completed KATHRIN FIELDS MD [address] [place], [address], [facility] 08/05/2024 11:26:54 Unlisted px hands/fingers [facility] 01/12[facility] 14:42:22 Back Surgery completed [facility] 01/19/2024 08:11:42 Imaging Results None recorded. Procedure Notes None recorded. Medical Equipment None Reported. Allergies Allergen ID Allergen Name Allergen Category Reaction Reaction Severity Criticality Documentation Date Start Date Code Code System Note Provider Name and Address Organization Details Recorded Time 537064 lidocaine medicatio n rash mild low 08/05/2024 6387 RxNorm Leesa Fernando [facility] 08:58:49 Medications Name Sig Start Date Stop [...] Details Last Updated DateTime 08/05/2024 177.8 cm Angelinaamalia Maddox [facility] 08/05/2024 08:42:17 Social History Question Answer Notes LastModified by Organizat ion Details LastModified Time Tobacco Smoking Status Current Every Day Smoker [facility] 01/12/2018 14:42:05 What Was The [...] SNOMED-CT Code Diagnosis ICD10 Code Diagnosis Note [id number] TERESA CLARK MD [facility] [address] [place] [address] 08/05/2024 08:33:57 08/06/2024 04:45:56 Postoperative visit [id number] Z48.89 [id number] KATHRIN FIELDS MD [facility] PL[address] OF SERVICE TIO ABRAMS [address], [address] [place] [address] 08/05/2024 09:37:18 08/05/2024 11:34:26 Post dural puncture headache [id number] G97.1 Health Concerns Section Related Observation LastModified by Organization Detai ls LastModified Time None Recorded Concern Status LastModified by Organization Details LastModified Time None Recorded Payers Encounter Date Sequence Insurance Name Policy Number Policy Long Covered Member ID Long Member ID Guarantor Name 08/05/2024 1 [place]: JEAN PIERRE [employer] [facility] MEDIBLUE PLUS (MEDICARE REPLACEMENT HMO) [id number] Hardy De Jesus [id number] Hardy De Jesus Notes Date Note [...] a posterior cervical headache. TERESA CLARK MD [address] [place] [address], [address], [facility] 08/05/2024 08:49:46
--- OUTSIDE RECORDS SUMMARY | 2024-08-21 10:37 | XMS_ITS | Referral Summary ---
Author Organization [employer] [facility] Address [address] [place] [address] Care Team Providers Care Auto Body Estimator Name Role Phone Michael Pal MD Primary Care Provider [phone] Encounters Date Type Department Care Team Description 06/24/2024 Travel 06/24/2024 1:00 PM EDT - 06/24/2024 3:12 PM EDT Surgery [facility] Operating Room [address] [place] [address] Estevan Husain MD (RT SIDED L4-L5 MICROSCOPIC DECOMPRESSION) 06/24/2024 1:01 PM EDT Anesthesia Event [facility] Operating Room [address] [place] [address] Zackery Prado MD Cornea, Mihaela, MD 06/24/2024 10:39 AM EDT - 06/24/2024 4:33 PM EDT Hospital Encounter [facility] Operating Room [address] [place] [address] Estevan Husain MD Discharge Disposition: Home or Self Care 06/17/2024 Travel 06/17/2024 7:23 AM EDT - 06/17/2024 11:59 PM EDT Hospital Encounter [facility] Preadmission Testing 1 [place] [address] Estevan Husain MD Preop testing (Primary Dx) Discharge Disposition: Home or Self Care from Last 3 Months Allergies Active Allergy Reactions Criticality Noted Date [...] (eight) hours as needed for pain. Active Social History Tobacco Use Types Packs/Day Years [...] 1 PM EDT pt using incentive spirometry, [id number] Inhaled Oxygen Concentration - - Weight 82.8 kg (182 lb 9.6 oz) 06/24/2024 11:08 AM EDT Height 177.8 cm (5' 10 ) 06/24/2024 11: 08 AM EDT Body Mass Index 26.2 06/24/2024 11:08 AM EDT Plan of Treatment Not on file Procedures Procedure Name Priority Date/Time Associated Diagnosis Comments FL C-ARM < 1 HOUR Routine 06/24/2024 2:1 0 PM EDT ANESTHESIA INTUBATION Routine 06/24/2024 1:07 PM EDT HI SHORT FACETECTOMY & FORAMOTOMY 1 VRT SGM [...] SINGLE LUMEN INTUBATION (06/24/2024 1:07 PM EDT) Narrative Evelyne Parkinson CRNA - 06/24/2024 1:07 PM EDT Evelyne [...] approaches attempted: 0 Additional Comments Atraumatic intubation us Zackery Prado MD ANESTHESIA ORDERABLES Edit ed Result - Final * Glucose, Nova Meter (06/24/2024 11:29 AM EDT) [facility] POC-GLUCOSE 101 70 - 110 mg/dL 06/24/2024 11:30 AM EDT [facility] Comment: In the event of poor peripheral blood flow, venous or arterial blood should be used due to the potential of erroneous results. No action Require Junior Financial Analyst [id number] 06/24/2024 11:30 AM EDT [facility] Blood WHOLE BLOOD / Unknown 06/24/2024 11:29 AM EDT 06/24/2024 11:29 AM EDT Narrative [facility] - 06/24/2024 11:30 AM EDT Junior Financial Analyst ID is - [id number] us Estevan Husain MD POINT OF CARE TEST ORDERABLES Fi nal Result [facility] [address] [place] [address] [phone] * (ABNORMAL) Urinalysis without Microscopic (06/17/2024 9:13 AM EDT) Pathologist [facility] Color, UA Colorless 06/17/2024 9:22 AM EDT [facility] Clarity, UA Clear Clear 06/17/2024 9:22 AM EDT [facility] Specific [place], UA 1.005 1.005 - 1.030 06/17/2024 9:22 AM EDT [facility] pH, UA 5.5(L) 6.0 - 8.0 06/17/2024 9:22 AM EDT [facility] Leukocytes, UA Negative Negative 06/17/2024 9:22 AM EDT [facility] Nitrite, UA Negative Negative 06/17/2024 9:22 AM EDT [facility] Protein, UA Negative Negative 06/17/2024 9:22 AM EDT [facility] Glucose, UA Normal Normal 06/17/2024 9:22 AM EDT [facility] Ketones, UA Negative Negative 06/17/2024 9:22 AM EDT [facility] Urobilinogen, UA Normal Normal 06/17/2024 9:22 AM EDT [facility] Bilirubin, UA Negative Negative 06/17/2024 9:22 AM EDT [facility] Blood, UA Negative Negative 06/17/2024 9:22 AM EDT [facility] Specimen Source Urine, Clean Catch 06/17/2024 9:22 AM EDT [facility] Urine URINE SPECIMEN COLLECTION, CLEAN CATCH / Unknown 06/17/2024 9:13 AM EDT 06/17/2024 9:13 AM EDT us Estevan Husain MD URINE ORDERABLES Final Result [facility] [address] [phone] * (ABNORMAL) CBC - Hemogram (SJ-BKR) (06/17/2024 8:13 AM EDT) WBC 9.2(H) 4.2 - 9.1 K/ L 06/17/2024 9:18 AM EDT [facility] RBC 4.06(L) 4.63 - 6.08 M/ L 06/17/2024 9:18 AM EDT [facility] Hemoglobin 13.6(L) 13.7 - 17.5 GM/DL 06/17/2024 9:18 AM EDT [facility] Hematocrit 41.0 40.1 - 51.0 % 06/17/2024 9:18 AM EDT [facility] MCV 101(H) 79 - 92 fL 06/17/2024 9:18 AM EDT [facility] MCH 33.5(H) 25.7 - 32.2 pg 06/17/2024 9:18 AM EDT [facility] MCHC 33.2 32.3 - 36.5 GM/DL 06/17/2024 9:18 AM EDT [facility] RDW 12.3 11.6 - 14.4 % 06/17/2024 9:18 AM EDT [facility] Platelets 254 140 - 375 K/CU MM 06/17/2024 9:18 AM EDT [facility] MPV 9.8 9.4 - 12.4 fL 06/17/2024 9:18 AM EDT [facility] Blood Venipuncture / Unknown 06/17/2024 8:13 AM EDT 06/17/2024 9:14 AM EDT us Estevan Husain MD LAB BLOOD ORDERABLES Final Resul t Performing Organization Address City/State/[facility] Co de Phone Number [facility] [address] [phone] * (ABNORMAL) Basic Metabolic Panel (06/17/2024 8:13 AM EDT) Sodium 141 136 - 145 meq/L 06/17/2024 9:38 AM EDT [facility] Potassium 4.2 3.4 - 5.1 meq/L 06/17/2024 9:38 AM EDT [facility] CO2 23 22 - 29 meq/L 06/17/2024 9:38 AM EDT [facility] Chloride 109 98 - 112 meq/L 06/17/2024 9:38 AM EDT [facility] Glucose 59(L) 82 - 115 mg/dL 06/17/2024 9:38 AM EDT [facility] BUN 9.6 8.4 - 25.7 mg/dL 06/17/2024 9:38 AM EDT [facility] Creatinine 0.82 0.72 - 1.25 mg/dL 06/17/2024 9:38 AM EDT [facility] BUN/Creatinine 12 8 - 20 06/17/2024 9:38 AM EDT [facility] Calcium 9.0 8.4 - 10.2 mg/dL 06/17/2024 9:38 AM EDT [facility] Anion Gap 13(H) 4 - 12 06/17/2024 9:38 AM EDT [facility] eGFR (mL/min/1.73m2) 93 >=60 mL/min/1.7 3m2 06/17/2024 9:38 AM EDT [facility] Osmolality Calc 278.0 mOsm/kg 9:38 AM EDT [facility] Blood Venipuncture / Unknown 06/17/2024 8:13 AM EDT 06/17/2024 9:14 AM EDT us Estevan Husain MD LAB BLOOD ORDERABLES Final Resul t [facility] [address] [phone] from Last 3 Months Insurance [employer] O MAP Advance Directives For more information, please contact: [phone] Documents on File Type Date Recorded Patient Hoop Maker Expl seraion Advance Directives and Shira g Will 06/24/2024 10:45 AM Care Teams Auto Body Estimator Relationship Specialty Start Date End Date Michael Pal MD [address] [place] [facility] [address] [place] [address] PCP - General Family Medicine 06/17/24
--- OUTSIDE RECORDS SUMMARY | 2024-08-21 10:37 | XMS_ITS | Continuity of Care Document ---
Author Organization [facility] Clini c, SURGERY SCHEDULE Address [address] [place] [address] Care Team Providers Care Twister Operator Name Role Phone AMELIA BUSH Primary Care Provider [phone] Assessment No assessment recorded. Plan of Treatment [...] ast No observ ation record ed. [email or web address] [facility] [address], [place], [address], 06/09/2024 08:38:22 06/08/1911/25/2023 MRI, lumba r spine , w/wo contr ast No observ ation record ed. [email or web address] [facility] [address], [address], 06/09/2024 08:38:58 06/23/1906/22/2024 MRI, lumba r spine , w/o contr ast No observ ation record ed. [email or web address] Not Available 08:47:50 Result Notes None recorded. Procedures Surgical History Date Name Laterality Status Provider Name and Address Organization Details Recorded Time Epidural Blood Patch - Rosales completed KATHRIN FIELDS MD [address] [place] [address], [address], [facility] 08/05/2024 11:26:54 Unlisted px hands/fingers [facility]12[facility] 14:42:22 Back Surgery completed [facility] 01/19/2024 08:11:42 Imaging Results None recorded. Procedure Notes None recorded. Medical Equipment None Reported. Allergies Allergen ID Allergen Name Allergen Category Reaction Reaction Severity Criticality Documentation Date Start Date Code Code System Note Provider Name and Address Organization Details Recorded Time 255199 lidocaine medicatio n rash mild low 08/05/2024 6387 RxNorm [facility]esa [facility] 08:58:49 Medications Name Sig [...] Available Not Available N ot Available Vitals None Recorded Social History Question Answer Notes LastModified by Organizat ion Details LastModified Time Tobacco Smoking Status Current Every Day Smoker Angelina Maddox [facility] 01/12/2018 14:42:05 What Was The Date [...] SNOMED-CT Code Diagnosis ICD10 Code Diagnosis Note [id number] MONET JEFFREY TUCKER, AUDIENCE COORDINATOR [facility] [address] [place] [address] 06/07/2024 07:52:49 06/08/2024 06:06:14 Lumbar radiculopathy [id number] M54.16 Health Concerns Section Related Observation LastModified by Organization Detai ls LastModified Time None Recorded Concern Status LastModified by Organization Details LastModified Time None Recorded Payers Encounter Date Sequence Insurance Name Policy Number Policy Long Covered Member ID Long Member ID Guarantor Name 06/24/2024 1 [place] (MEDICARE REPLACEMENT HMO) [id number] Hardy De Jesus [id number] Hardy De Jesus
--- OUTSIDE RECORDS SUMMARY | 2024-08-21 10:37 | XMS_ITS | Encounter Summary ---
Author Organization [email or web address] [facility] Address [address] [place] [address] Care Team Providers Care Damage Cutter Name Role Phone Michael Pal MD Primary Care Provider [phone] Encounter Details Date Type Department Care Team (Latest Contact Info) Description 06/24/2024 Travel Social History Tobacco Use Types Packs/Day Years [...] on file documented as of this encounter Plan of Treatment Not on file documented as of this encounter Visit Diagnoses Not on filedocumented in this encounter Care Teams Damage Cutter Relationship Specialty Start Date End Date Michael Pal MD [address] [facility] [address] [place] [address] PCP - General Family Medicine 06/17/24 documented as of this encounter
--- OUTSIDE RECORDS SUMMARY | 2024-08-21 10:37 | XMS_ITS | Clinical Summary ---
Author Organization [facility] Address [address] [place] [address] Phone Care Team Providers Care Looping Inspector Name Role Phone Unavailable Primary Care Provider Unavailabl e Allergies No known active allergies Social History Tobacco Use Types Packs/Day Years Used Date Smoking Tobacco: Never Assessed Sex and Gender Information Value Date Recorded Sex Assigned at Not on file Legal Sex Male 1:41 PM EDT Gender Identity Not on file Sexual Orientation Not on file Plan of Treatment Health Maintenance Due Date Last Done Comments Annual Wellness Exam 07[birth year]30/1953 Hepatitis C Screening 07/30/1969 DTaP/TDaP/Td (1 - Tdap) 07/30/1970 Cologuard 07/30/1996 Colon Cancer Screening 07/30/1996 Colonoscopy 07/30/1996 FIT 07/30/1996 Sigmoidoscopy 07/30/1996 Virtual Colonography 07/30/1996 Pneumococcal Vaccine 50+ (1 of 1 - PCV) 07/30/2001 Zoster (1 of 2) 07/30/2001 COVID-19 Vaccine (2023-2 5 season) 2023 Influenza Vaccine (Season Ended) 2024 Hepatitis B Vaccine Aged Out No longe r eligible based on patient's age to complete this topic Meningococcal B Vaccine Aged Out No l onger eligible based on patient's age to complete this topic Insurance [employer] PPO MEDICARE PART A on file
--- NOTE | 2024-08-21 10:39 | XR_ITS ---
PROCEDURE INFORMATION: Exam: XR Chest Exam date and time: 08/21/2024 10:30 AM Age: 74 years old Clinical indication: Cough TECHNIQUE: Imaging protocol: Radiologic exam of the chest. Views: 2 views. COMPARISON: CT LUNG SCREENING 02/21/2023 3:12 PM FINDINGS: Lungs: No consolidation or pulmonary edema. Pleural spaces: No pleural effusion. No pneumothorax. Heart/Mediastinum: Cardiomediastinal silhouette is normal. Bones/joints: No acute abnormality. IMPRESSION: No acute findings.
== END 2024-08-21 23:59 | disposition home or self-care (01) ==
LOC: RAD 10:34
PROVIDERS: PCP Family Medicine; Visit Provider Nurse Practitioner
DX: R05.9 Cough, unspecified (principal)
CPT/HCPCS: 71046

== ENCOUNTER 2024-09-07 16:42 | Outpatient (CLI) | payer MEDICARE, SELFPAY ==
--- OUTSIDE RECORDS SUMMARY | 2024-09-07 16:45 | XMS_ITS | Clinical Summary ---
Author Organization [employer] ([place], [place], [place], [place]) Address [address] [place] [address] Care Team Providers Care Transit Driver Name Role Phone Michael Pal MD Primary Care Provider [phone] Allergies Active Allergy Reactions Criticality Noted Date [...] Description 06/24/2024 1:01 PM EDT Anesthesia Event [facility] Operating Room 1 [place] [address] Zackery Prado MD Cornea, Mihaela, MD 06/24/2024 1:00 PM EDT - 06/24/2024 3:12 PM EDT Surgery [facility] Operating Room 1 [place] [address] Estevan Husain MD (RT SIDED L4-L5 MICROSCOPIC DECOMPRESSION) 06/24/2024 10:39 AM EDT - 06/24/2024 4:33 PM EDT Hospital Encounter [facility] Operating Room 1 [place] [address] Estevan Husain MD Discharge Disposition: Home or Self Care 06/24/2024 Travel 06/17/2024 7:23 AM EDT - 06/17/2024 11:59 PM EDT Hospital Encounter [facility] Preadmission Testing 1 [place] [address] Estevan Husain MD Preop testing (Primary Dx) Discharge Disposition: Home or Self Care 06/17/2024 Travel from Last 3 Months Social History Tobacco Use Types Packs/Day Years Used Date Smoking Tobacco: Every Day Cigarettes Smokeless Tobacco: Never Tobacco Cessation:Ready to Q uit: Not Asked Alcohol Use Standard Drinks/Week Comments Yes 0 (1 standard drink = 0.6 oz pur e alcohol) 6 beers daily CHI Intimate Partner Violence Answer Da te [...] 1 PM EDT pt using incentive spirometry, 5831-0314 Inhaled Oxygen Concentration - - Weight 82.8 [...] of 2 - PCV) 01/10/202105/2019 COVID-19 VACCINE (3 - season) 2023, 07/14/2020 Falls Risk Screening 03/10/2024 Medicare IPPE (Welcome to Medicare) G0402 03/10/2024 Influenza Vaccine (Season Ended) 2024 Depression Screening (12+) 06/17/2025 06/17/2024 Respiratory Syncytial Virus (RSV) Adult or (1 - 1-dose 75+ series) 07/30/2026 Procedures Procedure Name Priority Date/Time Associated Diagnosis Comments FL C-ARM < 1 HOUR Routine 06/24/2024 2:1 0 PM EDT ANESTHESIA INTUBATION Routine 06/24/2024 1:07 PM EDT DE SHORT FACETECTOMY & FORAMOTOMY [...] by Dr. Jose Flaherty. Transcribed by Tariq Leugers, PA-C. us Estevan Husain MD IMG FLUOROSCOPY ORDERABLES Final [...] approaches attempted: 0 Additional Comments Atraumatic intubation Result [facility] Zackery Prado MD ANESTHESIA ORDERABLES Edit ed Result - Final * Glucose, Nova Meter (06/24/2024 11:29 AM EDT) POC-GLUCOSE 101 70 - 110 mg/dL 06/24/2024 11:30 AM EDT [facility] Comment: In the event of poor peripheral blood flow, venous or arterial blood should be used due to the potential of erroneous results. No action Require Motor Coach Bus Driver [id number] 06/24/2024 11:30 AM EDT [facility] Blood WHOLE BLOOD / Unknown 06/24/2024 11:29 AM EDT 06/24/2024 11:29 AM EDT Narrative [facility] - 06/24/2024 11:30 AM EDT Motor Coach Bus Driver ID is - [id number] us Estevan Husain MD POINT OF CARE TEST ORDERABLES Fi nal Result Performing Organization Address City/[facility]/ZIP Co de Phone Number [facility] 1 [place] [address], [facility] [phone] * (ABNORMAL) Urinalysis without Microscopic (06/17/2024 9:13 AM EDT) Color, UA Colorless 06/17/2024 9:22 AM EDT [facility] Clarity, UA Clear Clear 06/17/2024 9:22 AM EDT [facility] Specific [place], UA 1.005 1.005 - 1.030 06/17/2024 9:22 AM EDT [facility] pH, UA 5.5(L) 6.0 - 8.0 06/17/2024 9:22 AM EDT [facility] Leukocytes, UA Negative Negative 06/17/2024 9:22 AM EDT [facility] Nitrite, UA Negative Negative 06/17/2024 9:22 AM EDT [facility] Protein, UA Negative Negative 06/17/2024 9:22 AM EDT [facility] Glucose, UA Normal Normal 06/17/2024 9:22 AM EDT [facility] Ketones, UA Negative Negative 06/17/2024 9:22 AM EDT [facility] Urobilinogen, UA Normal Normal 06/17/2024 9:22 AM EDT [facility] Bilirubin, UA Negative Negative 06/17/2024 9:22 AM EDT [facility] Blood, UA Negative Negative 06/17/2024 9:22 AM EDT [facility] Specimen Source Urine, Clean Catch 06/17/2024 9:22 AM EDT [facility] Urine URINE SPECIMEN COLLECTION, CLEAN CATCH / Unknown 06/17/2024 9:13 AM EDT 06/17/2024 9:13 AM EDT us Estevan Husain MD URINE ORDERABLES Final Result Performing Organization Address [facility]/ZIP Co de Phone Number [facility] [address] [phone] * (ABNORMAL) CBC - Hemogram (SJ-BKR) (06/17/2024 8:13 AM EDT) [facility] WBC 9.2(H) 4.2 - 9.1 K/ L 06/17/2024 9:18 AM EDT [facility] RBC 4.06(L) 4.63 - 6.08 M/ L 06/17/2024 9:18 AM EDT [facility] Hemoglobin 13.6(L) 13.7 - 17.5 GM/DL 06/17/2024 9:18 AM EDT [facility] Hematocrit 41.0 40.1 - 51.0 % 06/17/2024 9:18 AM EDT [facility] MCV 101(H) 79 - 92 fL 06/17/2024 9:18 AM EDT [facility] MCH 33.5(H) 25.7 - 32.2 pg 06/17/2024 9:18 AM EDT [facility] MCHC 33.2 32.3 - 36.5 GM/DL 06/17/2024 9:18 AM EDT [facility] RDW 12.3 11.6 - 14.4 % 06/17/2024 9:18 AM EDT [facility] Platelets 254 140 - 375 K/CU MM 06/17/2024 9:18 AM EDT [facility] MPV 9.8 9.4 - 12.4 fL 06/17/2024 9:18 AM EDT [facility] Blood Venipuncture / Unknown 06/17/2024 8:13 AM EDT 06/17/2024 9:14 AM EDT us Estevan Husain MD LAB BLOOD ORDERABLES Final Resul t [facility] [address] [phone] * (ABNORMAL) Basic Metabolic Panel (06/17/2024 8:13 AM EDT) [facility] Sodium 141 136 - 145 meq/L 06/17/2024 9:38 AM EDT [facility] Potassium 4.2 3.4 - 5.1 meq/L 06/17/2024 9:38 AM EDT [facility] CO2 23 22 - 29 meq/L 06/17/2024 9:38 AM EDT [facility] Chloride 109 98 - 112 meq/L 06/17/2024 9:38 AM EDT [facility] Glucose 59(L) 82 - 115 mg/dL 06/17/2024 9:38 AM EDT [facility] BUN 9.6 8.4 - 25.7 mg/dL 06/17/2024 9:38 AM T [facility] Creatinine 0.82 0.72 - 1.25 mg/dL 06/17/2024 9:38 AM EDT [facility] BUN/Creatinine 12 8 - 20 06/17/2024 9:38 AM T [facility] Calcium 9.0 8.4 - 10.2 mg/dL 06/17/2024 9:38 AM EDT [facility] Anion Gap 13(H) 4 - 12 06/17/2024 9:38 AM T [facility] eGFR (mL/min/1.73m2) 93 >=60 mL/min/1.7 3m2 06/17/2024 9:38 AM EDT [facility] Osmolality Calc 278.0 mOsm/kg 9:38 AM T [facility] Blood Venipuncture / Unknown 06/17/2024 8:13 AM EDT 06/17/2024 9:14 AM EDT us Estevan Husain MD LAB BLOOD ORDERABLES Final Resul t [facility] [address] [phone] from Last 3 Months Insurance [id number] (Home) [address] [place] [address] [facility] ACCESS H[facility] MAP Advance Directives For more information, please contact: [phone] Documents on File Type Date Recorded Patient Supervisor Tile [employer] Mottle Expl anation Advance Directives and Livin g Will 06/24/2024 10:45 AM Care Teams Transit Driver Relationship Specialty Start Date End Date Michael Pal MD [address] [facility] [address] [place] [address] PCP - General Family Medicine 06/17/24
--- OUTSIDE RECORDS SUMMARY | 2024-09-07 16:45 | XMS_ITS | Referral Summary ---
Author Organization [employer] ([place], [place], [place], [place]) Address [address] [place] [address] Care Team Providers Care Real Estate Lawyer Name Role Phone Michael Pal MD Primary Care Provider [phone] Encounters Date Type Department Care Team Description 06/24/2024 Travel 06/24/2024 1:00 PM EDT - 06/24/2024 3:12 PM EDT Surgery [facility] Operating Room 1 [place] [address] Estevan Husain MD (RT SIDED L4-L5 MICROSCOPIC DECOMPRESSION) 06/24/2024 1:01 PM EDT Anesthesia Event [facility] Operating Room 1 [place] [address] Zackery Prado MD Cornea, Mihaela, MD 06/24/2024 10:39 AM EDT - 06/24/2024 4:33 PM EDT Hospital Encounter [facility] Operating Room 1 [place] [address] Estevan Husain MD Discharge Disposition: Home or Self Care 06/17/2024 Travel 06/17/2024 7:23 AM EDT - 06/17/2024 11:59 PM EDT Hospital Encounter [facility] Preadmission Testing 1 [place] [address] Estevan Husain MD Preop testing (Primary Dx) [...] 1 PM EDT pt using incentive spirometry, [id number] Inhaled Oxygen Concentration - - Weight 82.8 kg (182 lb 9.6 oz) 06/24/2024 11:08 AM EDT Height 177.8 cm (5' 10 ) 06/24/2024 11: 08 AM EDT Body Mass Index 26.2 06/24/2024 11:08 AM EDT Plan of Treatment Not on file Procedures Procedure Name Priority Date/Time Associated Diagnosis Comments FL C-ARM < 1 HOUR Routine 06/24/2024 2: 10 PM EDT ANESTHESIA INTUBATION Routine 06/24/2024 1:07 PM EDT [place] SHORT FACETECTOMY & FORAMOTOMY 1 VRT SGM [...] by Dr. Jose Flaherty. Transcribed by Tariq hRoades PA-C. Narrative 06/25/2024 9:59 AM EDT FLUOROSCOPY [...] Jose Flaherty. Transcribed by Tariq Rhoades PA-C. us Estevan Husain MD IMG FLUOROSCOPY [...] - 110 mg/dL 06/24/2024 11:30 AM EDT [facility] Comment: In the event of poor peripheral blood flow, venous or arterial blood should be used due to the potential of erroneous results. No action Require Fisher Clam [id number] 06/24/2024 11:30 AM EDT [facility] Blood WHOLE BLOOD / Unknown 06/24/2024 11:29 AM EDT 06/24/2024 11:29 AM EDT Narrative [facility] - 06/24/2024 11:30 AM EDT Fisher Clam ID is - [id number] us Estevan Husain MD POINT OF CARE TEST ORDERABLES Fi nal Result [facility] [address] [phone] * (ABNORMAL) Urinalysis without Microscopic (06/17/2024 9:13 AM EDT) Color, UA Colorless 06/17/2024 9:22 AM EDT [facility] Clarity, UA Clear Clear 06/17/2024 9:22 AM EDT [facility] Specific [place], UA 1.005 1.005 - 1.030 06/17/2024 9:22 AM EDT [facility] pH, UA 5.5(L) 6.0 - 8.0 06/17/2024 9:22 AM EDT [facility] Leukocytes, UA Negative Negative 06/17/2024 9:22 AM EDT [facility] Nitrite, UA Negative Negative 06/17/2024 9:22 AM EDT [facility] Protein, UA Negative Negative 06/17/2024 9:22 AM EDT [facility] Glucose, UA Normal Normal 06/17/2024 9:22 AM EDT [facility] Ketones, UA Negative Negative 06/17/2024 9:22 AM EDT [facility] Urobilinogen, UA Normal Normal 06/17/2024 9:22 AM EDT [facility] Bilirubin, UA Negative Negative 06/17/2024 9:22 AM EDT [facility] Blood, UA Negative Negative 06/17/2024 9:22 AM EDT [facility] Specimen Source Urine, Clean Catch 06/17/2024 9:22 AM EDT [facility] Urine URINE SPECIMEN COLLECTION, CLEAN CATCH / Unknown 06/17/2024 9:13 AM EDT 06/17/2024 9:13 AM EDT us Estevan Husain MD URINE ORDERABLES Final Result Performing Organization Address [facility]/State/[facility] Co de Phone Number [facility] [address] [place] [address] * (ABNORMAL) CBC - Hemogram (SJ-BKR) (06/17/2024 8:13 AM EDT) WBC 9.2(H) 4.2 - 9.1 K/ L 06/17/2024 9:18 AM EDT [facility] RBC 4.06(L) 4.63 - 6.08 M/ L 06/17/2024 9:18 AM EDT [facility] Hemoglobin 13.6(L) 13.7 - 17.5 GM/DL 06/17/2024 9:18 AM EDT [facility] Hematocrit 41.0 40.1 - 51.0 % 06/17/2024 9:18 AM EDT [facility] MCV 101(H) 79 - 92 fL 06/17/2024 9:18 AM EDT [facility] MCH 33.5(H) 25.7 - 32.2 pg 06/17/2024 9:18 AM EDT [facility] MCHC 33.2 32.3 - 36.5 GM/DL 06/17/2024 9:18 AM EDT [facility] RDW 12.3 11.6 - 14.4 % 06/17/2024 9:18 AM EDT [facility] Platelets 254 140 - 375 K/CU MM 06/17/2024 9:18 AM EDT [facility] MPV 9.8 9.4 - 12.4 fL 06/17/2024 9:18 AM EDT [facility] Blood Venipuncture / Unknown 06/17/2024 8:13 AM EDT 06/17/2024 9:14 AM EDT us Estevan Husain MD LAB BLOOD ORDERABLES Final Resul t [facility] [address] [phone] * (ABNORMAL) Basic Metabolic Panel (06/17/2024 8:13 AM EDT) Sodium 141 136 - 145 meq/L 06/17/2024 9:38 AM EDT [facility] Potassium 4.2 3.4 - 5.1 meq/L 06/17/2024 9:38 AM EDT [facility] CO2 23 22 - 29 meq/L 06/17/2024 9:38 AM EDT [facility] Chloride 109 98 - 112 meq/L 06/17/2024 9:38 AM EDT [facility] Glucose 59(L) 82 - 115 mg/dL 06/17/2024 9:38 AM EDT [facility] BUN 9.6 8.4 - 25.7 mg/dL 06/17/2024 9:38 AM EDT [facility] Creatinine 0.82 0.72 - 1.25 mg/dL 06/17/2024 9:38 AM EDT [facility] BUN/Creatinine 12 8 - 20 06/17/2024 9:38 AM EDT [facility] Calcium 9.0 8.4 - 10.2 mg/dL 06/17/2024 9:38 AM EDT [facility] Anion Gap 13(H) 4 - 12 06/17/2024 9:38 AM EDT [facility] eGFR (mL/min/1.73m2) 93 >=60 mL/min/1.7 3m2 06/17/2024 9:38 AM EDT [facility] Osmolality Calc 278.0 mOsm/kg 9:38 AM EDT [facility] Blood Venipuncture / Unknown 06/17/2024 8:13 AM EDT 06/17/2024 9:14 AM EDT us Estevan Husain MD LAB BLOOD ORDERABLES Final Resul t [facility] [address] [place] [id number], [facility] [phone] from Last 3 Months Insurance [id number] (Home) [address] [place] [address] [facility] [employer]aterna O MAP Advance Directives For more information, please contact: [phone] Documents on File Type Date Recorded Patient Ledger Clerk Expl anation Advance Directives and Livin g Will 06/24/2024 10:45 AM Care Teams Real Estate Lawyer Relationship Specialty Start Date End Date Michael Pal MD [address] [place] [facility] [address] [place] [address] PCP - General Family Medicine 06/17/24
--- OUTSIDE RECORDS SUMMARY | 2024-09-07 16:45 | XMS_ITS | Clinical Summary ---
Author Organization [facility] Address [address] [place] [address] Phone Care Team Providers Care Fruit Press Operator Name Role Phone Unavailable Primary Care Provider [...]
--- OUTSIDE RECORDS SUMMARY | 2024-09-07 16:45 | XMS_ITS | Encounter Summary ---
Author Organization [employer] ([place], [place], [place], [place]) Address [address] [place] [address] Care Team Providers Care Television Agent Name Role Phone Michael Pal MD Primary Care Provider [phone] Encounter Details Date Type Department Care Team (Late st Contact Info) Description 02/06/2018 Transcribed Document [facility] Neurology - [facility] [address] [address] Estevan Husain MD [address] [place], [place] [id number] Social History Tobacco Use Types Packs/Day Years [...] on filedocumented in this encounter Care Teams Television Agent Relationship Specialty Start Date End Date Michael Pal MD [address] [facility] [address] [place] [phone] PCP - General Family Medicine 06/17/24 documented as of this encounter
[2024-09-07 16:51] LABS: Microscopic, Urine URINE MICROSCOPIC (MICROSCOPIC)
[2024-09-07 17:10] LABS: Hematocrit 38.1 % (42.0-52.0); Hemoglobin 13.1 g/dL (14.1-18.0); Immature Granulocytes % 0 %; Mean Corpuscular HGB Conc 34.4 g/dL (31.8-35.4); Mean Corpuscular Hemoglobin 33.9 pg (27.0-31.2); Mean Corpuscular Volume 98.4 fl (80-94); Nucleated Red Blood Cells % 0 %; Platelet Count 221 K/mm3 (142-424); Red Blood Count 3.87 M/mm3 (4.60-6.20); Red Cell Distribution Width-SD 46.3 fL; White Blood Count 6.3 K/mm3 (4.8-10.8)
[2024-09-07 17:13] LABS: Bilirubin,Urine Negative (Negative); Color,Urine YELLOW (Yellow); Glucose,Urine (UA) Negative (Negative); Ketones,Urine Negative (Negative); Leukocyte Esterase,Urine Negative (Negative); PH,Urine 6.0 (5.0-8.5); Protein,Urine Negative (Negative); Specific Gravity, Urine 1.015 (1.005-1.030); Urobilinogen,Urine 0.2 EU/dl (0.2)
[2024-09-07 17:51] LABS: Alanine Aminotransferase 19 U/L (12-78); Albumin Level 4.1 g/dl (3.5-5.0); Albumin/Globulin Ratio 1.6 (1.1-1.8); Alkaline Phosphatase 75 U/L (38-126); Anion Gap 12.1 mEq/L (5-15); Aspartate Amino Transferase 24 U/L (17-59); Bilirubin,Total 0.4 mg/dl (0.2-1.3); Blood Urea Nitrogen 11 mg/dl (9-20); Calcium 9.6 mg/dl (8.4-10.2); Carbon Dioxide 25 mmol/L (22.0-30.0); Chloride 105 mmol/L (98-107); Creatinine,Serum 0.70 mg/dl (0.66-1.25); Estimated Glomerular Filt Rate 111 ml/min (>60); GFR (African American) 134 ML/MIN (>60); Globulin 2.6 g/dL (1.3-3.2); Glucose 109 mg/dl (74-100); Potassium 4.1 mmoL/L (3.5-5.1); Sodium 138 mmol/L (136-145); Total Protein,Serum 6.7 g/dl (6.3-8.2)
[2024-09-07 18:03] LABS: Squamous Epithelial Cell,Urine Occasional #/hpf (0-5)
[2024-09-07 18:04] LABS: Bacteria,Urine 1+ /lpf; Mucus,Urine 1+ /lpf
== END 2024-09-07 23:59 | disposition home or self-care (01) ==
LOC: LAB 16:43
PROVIDERS: PCP Family Medicine; Visit Provider Nurse Practitioner
DX: T81.89XA Other complications of procedures, not elsewhere classified, initial encounter (principal); Z98.890 Other specified postprocedural states; R51.9 Headache, unspecified; R53.81 Other malaise; R53.83 Other fatigue
CPT/HCPCS: 36415; 80053; 81001; 85025; 85651; 87040; 87086

== ENCOUNTER 2024-09-09 08:19 | Outpatient (CLI) | payer MEDICARE, SELFPAY ==
--- OUTSIDE RECORDS SUMMARY | 2024-09-09 08:21 | XMS_ITS | Continuity of Care Document ---
Author Organization [facility], [facility] Address [address] [facility] [address] [place] [address] Care Team Providers Care Jig And Fixture Repairer Name Role Phone AMELIA BUSH Primary Care [...] Patch - Rosales completed KATHRIN FIELDS MD [facility] [place], [address], [facility] 08/05/2024 11:26:54 Unlisted px hands/fingers completed Angelina Maddox [facility] 01/12/2018 14:42:22 Back Surgery completed Angelina Maddox [facility] 01/19/2024 08:11:42 Imaging Results None recorded. Procedure Notes None recorded. Medical Equipment None Reported. Allergies Allergen ID Allergen Name Allergen Category Reaction Reaction Severity Criticality Documentation Date Start Date Code Code System Note Provider Name and Address Organization Details Recorded Time 406939 lidocaine medicatio n rash mild low 08/05/2024 6387 RxNorm Leesa King [facility] 08:58:49 Medications Name Sig Start Date Stop Date Status Note LastModified by Organization Details LastModified Time celecoxib 200 mg capsule 11/11 /2024 completed Not Available Not Available Not Available [...] Not Available Not Available No t Available Treledimitris Ellipta 100 mcg-62.5 mcg-25 mcg powder for inhalation active Not Available Not Available N ot Available Vitals Date Recorded Body height Provider Name an d Address Organization Details Last Updated DateTime 08/05/2024 177.8 cm Angelina Maddox [facility] 08/05/2024 08:42:17 Social History Question Answer Notes LastModified by Organizat ion Details LastModified Time Tobacco Smoking Status Current Every Day Smoker Angelina Maddox [facility] 01/12/2018 14:42:05 What Was The Date Of [...] SNOMED-CT Code Diagnosis ICD10 Code Diagnosis Note [id number] TERESA CLARK MD [facility] [address] [place] [address] 08/05/2024 08:33:57 08/06/2024 04:45:56 Postoperative visit [id number] Z48.89 [id number] KATHRIN FIELDS MD [facility] [address] [facility], [address] [place] [address] 08/05/2024 09:37:18 08/05/2024 11:34:26 Post dural puncture headache 070811130 G97.1 Health Concerns Section Related Observation LastModified by Organization Detai ls LastModified Time None Recorded Concern Status LastModified by Organization Details LastModified Time None Recorded Payers Encounter Date Sequence Insurance Name Policy Number Policy Long Covered Member ID Long Member ID Guarantor Name 08/05/2024 1 [place] (MEDICARE REPLACEMENT HMO) [id number] Hardy De Jesus [id number] Hardy De Jesus Notes Date Note [...] a posterior cervical headache. TERESA CLARK MD [facility] [place], [address], [facility] 08/05/2024 08:49:46
--- OUTSIDE RECORDS SUMMARY | 2024-09-09 08:21 | XMS_ITS | Clinical Summary ---
Author Organization [facility] Address [address] [place] [address] Phone Care Team Providers Care Circuit Board Repair Technician Name Role Phone Unavailable Primary Care Provider [...]
--- OUTSIDE RECORDS SUMMARY | 2024-09-09 08:21 | XMS_ITS | Continuity of Care Document ---
Author Organization [facility], NEUROSURGERY [address] [place] [address] Care Team Providers Care Humidifier Operator Name Role Phone AMELIA BUSH Primary Care Provider [phone] Assessment Encounter Date Assessment Date Assessment LastModified [...] - Rosales completed KATHRIN FIELDS MD [address] [place], [address], [facility] 08/05/2024 11:26:54 Unlisted px hands/fingers [facility]/12[facility] 14:42:22 Back Surgery completed Angelina [facility] 01/19/2024 08:11:42 Imaging Results None recorded. Procedure Notes None recorded. Medical Equipment None Reported. Allergies Allergen ID Allergen Name Allergen Category Reaction Reaction Severity Criticality Documentation Date Start Date Code Code System Note Provider Name and Address Organization Details Recorded Time 278505 lidocaine medicatio n rash mild low 08/05/2024 6387 RxNorm Leesa King [facility] 08:58:49 Medications Name Sig Start Date Stop [...] Updated DateTime 08/05/2024 177.8 cm Angelinaamalia [facility]ox [facility] 08/05/2024 08:42:17 Social History Question Answer Notes LastModified by Organizat ion Details LastModified Time Tobacco Smoking Status Current Every Day Smoker [facility] 01/12/2018 14:42:05 What Was The Date Of [...] SNOMED-CT Code Diagnosis ICD10 Code Diagnosis Note [id number] TERESA CLARK MD [facility] [address] [place] [address] 08/05/2024 08:33:57 08/06/2024 04:45:56 Postoperative visit [id number] Z48.89 [id number] KATHRIN FIELDS MD [facility] OF SERV[facility] TIO ABRAMS [address] [facility], [address] [place] [address] 08/05/2024 09:37:18 08/05/2024 11:34:26 Post dural puncture headache [id number] G97.1 Health Concerns Section Related Observation LastModified by Organization Detai ls LastModified Time None Recorded Concern Status LastModified by Organization Details LastModified Time None Recorded Payers Encounter Date Sequence Insurance Name Policy Number Policy Long Covered Member ID Long Member ID Guarantor Name 08/05/2024 1 [place]: JEAN PIERRE DAVIS OF [facility] MEDIBLIPDIA PLUS (MEDICARE REPLACEMENT HMO) [id number] Hardy De Jesus [id number] Hardy De Jesus Notes Date Note [...] a posterior cervical headache. TERESA CLARK MD [address] [place] [address], [address], [facility] 08/05/2024 08:49:46
--- OUTSIDE RECORDS SUMMARY | 2024-09-09 08:21 | XMS_ITS | Referral Summary ---
Author Organization [employer] ([place], [place], [place], [place]) Address [address] [place] [address] Care Team Providers Care Shipping Coordinator Name Role Phone Michael Pal MD Primary Care Provider [phone] Encounters Date Type Department Care Team Description 06/24/2024 Travel 06/24/2024 1:00 PM EDT - 06/24/2024 3:12 PM EDT Surgery [facility] Operating Room 1 [place] [address] Estevan Husain MD (RT SIDED L4-L5 MICROSCOPIC DECOMPRESSION) 06/24/2024 1:01 PM EDT Anesthesia Event [facility] Operating Room 1 [place] [address] Zackery Prado MD Cornea, Mihaela, MD 06/24/2024 10:39 AM EDT - 06/24/2024 4:33 PM EDT Hospital Encounter [facility] Operating Room 1 [place] [address] Estevan Husain MD Discharge Disposition: Home or Self Care 06/17/2024 Travel 06/17/2024 7:23 AM EDT - 06/17/2024 11:59 PM EDT Hospital Encounter [facility] Preadmission Testing 1 [place] [address] Estevan Husain MD Preop testing (Primary Dx) [...] 1 PM EDT pt using incentive spirometry, [id number] Inhaled Oxygen Concentration - - Weight 82.8 [...] ANESTHESIA INTUBATION Routine 06/24/2024 1:07 PM EDT LA SHORT FACETECTOMY & FORAMOTOMY 1 VRT SGM [...] - 110 mg/dL 06/24/2024 11:30 AM EDT [facility] Comment: In the event of poor peripheral blood flow, venous or arterial blood should be used due to the potential of erroneous results. No action Require Demonstrator Knitting [id number] 06/24/2024 11:30 AM EDT [facility] Blood WHOLE BLOOD / Unknown 06/24/2024 11:29 AM EDT 06/24/2024 11:29 AM EDT Narrative [facility] - 06/24/2024 11:30 AM EDT Demonstrator Knitting ID is - [id number] us Estevan Husain MD POINT OF CARE TEST ORDERABLES Fi nal Result [facility] [address] [phone] * (ABNORMAL) Urinalysis without Microscopic (06/17/2024 9:13 AM EDT) Color, UA Colorless 06/17/2024 9:22 AM EDT [facility] Clarity, UA Clear Clear 06/17/2024 9:22 AM EDT [facility] Specific [place], UA 1.005 1.005 - 1.030 06/17/2024 9:22 AM EDT [facility] pH, UA 5.5(L) 6.0 - 8.0 06/17/2024 9:22 AM EDT [facility] Leukocytes, UA Negative Negative 06/17/2024 9:22 AM EDT [facility] Nitrite, UA Negative Negative 06/17/2024 9:22 AM EDT [facility] Protein, UA Negative Negative 06/17/2024 9:22 AM EDT [facility] Glucose, UA Normal Normal 06/17/2024 9:22 AM EDT [facility] Ketones, UA Negative Negative 06/17/2024 9:22 AM EDT [facility] Urobilinogen, UA Normal Normal 06/17/2024 9:22 AM EDT [facility] Bilirubin, UA Negative Negative 06/17/2024 9:22 AM EDT [facility] Blood, UA Negative Negative 06/17/2024 9:22 AM EDT [facility] Specimen Source Urine, Clean Catch 06/17/2024 9:22 AM EDT [facility] Urine URINE SPECIMEN COLLECTION, CLEAN CATCH / Unknown 06/17/2024 9:13 AM EDT 06/17/2024 9:13 AM EDT us Estevan Husain MD URINE ORDERABLES Final Result Performing Organization Address [facility]/State/[facility] Co de Phone Number [facility] [address] [place] [address] * (ABNORMAL) CBC - Hemogram (SJ-BKR) (06/17/2024 8:13 AM EDT) WBC 9.2(H) 4.2 - 9.1 K/ L 06/17/2024 9:18 AM EDT [facility] RBC 4.06(L) 4.63 - 6.08 M/ L 06/17/2024 9:18 AM EDT [facility] Hemoglobin 13.6(L) 13.7 - 17.5 GM/DL 06/17/2024 9:18 AM EDT [facility] Hematocrit 41.0 40.1 - 51.0 % 06/17/2024 9:18 AM EDT [facility] MCV 101(H) 79 - 92 fL 06/17/2024 9:18 AM EDT [facility] MCH 33.5(H) 25.7 - 32.2 pg 06/17/2024 9:18 AM EDT [facility] MCHC 33.2 32.3 - 36.5 GM/DL 06/17/2024 9:18 AM EDT [facility] RDW 12.3 11.6 - 14.4 % 06/17/2024 9:18 AM EDT [facility] Platelets 254 140 - 375 K/CU MM 06/17/2024 9:18 AM EDT [facility] MPV 9.8 9.4 - 12.4 fL 06/17/2024 9:18 AM EDT [facility] Blood Venipuncture / Unknown 06/17/2024 8:13 AM EDT 06/17/2024 9:14 AM EDT us Estevan Husain MD LAB BLOOD ORDERABLES Final Resul t [facility] [address] [phone] * (ABNORMAL) Basic Metabolic Panel (06/17/2024 8:13 AM EDT) Sodium 141 136 - 145 meq/L 06/17/2024 9:38 AM EDT [facility] Potassium 4.2 3.4 - 5.1 meq/L 06/17/2024 9:38 AM EDT [facility] CO2 23 22 - 29 meq/L 06/17/2024 9:38 AM EDT [facility] Chloride 109 98 - 112 meq/L 06/17/2024 9:38 AM EDT [facility] Glucose 59(L) 82 - 115 mg/dL 06/17/2024 9:38 AM EDT [facility] BUN 9.6 8.4 - 25.7 mg/dL 06/17/2024 9:38 AM EDT [facility] Creatinine 0.82 0.72 - 1.25 mg/dL 06/17/2024 9:38 AM EDT [facility] BUN/Creatinine 12 8 - 20 06/17/2024 9:38 AM EDT [facility] Calcium 9.0 8.4 - 10.2 mg/dL 06/17/2024 9:38 AM EDT [facility] Anion Gap 13(H) 4 - 12 06/17/2024 9:38 AM EDT [facility] eGFR (mL/min/1.73m2) 93 >=60 mL/min/1.7 3m2 06/17/2024 9:38 AM EDT [facility] Osmolality Calc 278.0 mOsm/kg 9:38 AM EDT [facility] Blood Venipuncture / Unknown 06/17/2024 8:13 AM EDT 06/17/2024 9:14 AM EDT us Estevan Husain MD LAB BLOOD ORDERABLES Final Resul t [facility] [address] [place] [id number] [phone] from Last 3 Months Insurance [id number] (Home) [address] [place] [address] [facility] [place] [employer] MAP Advance Directives For more information, please contact: [phone] Documents on File Type Date Recorded Patient Testing Consultant Expl anation Advance Directives and Livin g Will 06/24/2024 10:45 AM Care Teams Shipping Coordinator Relationship Specialty Start Date End Date Michael Pal MD [address] [facility] [address] [place] [address] PCP - General Family Medicine 06/17/24
--- OUTSIDE RECORDS SUMMARY | 2024-09-09 08:21 | XMS_ITS | Data Portability ---
Author Organization [employer] LILLY CLOSED Address [address] [facility] [address] [place] [address] Care Team Providers Care Last Model Department Supervisor Name Role Phone AMELIA BUSH Primary Care Provider [phone] Assessment Encounter Date Assessment Date Assessment LastModified [...] believe around the holidays in 2023 at [facility]. They did an injection with Dr. [...] was a lumbar MRI completed 07/15/2017 at [facility]. He did have thoracic and lumbar MRIs completed at [facility] on 11/25/2023. Leticia, our census enumerator, had his CD with this imaging. Dr. Clark and I did personally review these images and read the radiologist report. 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 Nurse practitioner visit PLAN: Request all imaging results from [facility] Will contact Mr. De Jesus after determining what additional, if any, imaging is needed I spoke with Mr. De Jesus and his that unfortunately, I cannot find any updated imaging of his lumbar spine. His reports that she brought a CD herself to our office from [facility] last year. I did question if they took that to their appointment with Dr. Longo after seeing our office in January, but they both report they did not take it with them as he has access to [facility]. We will request all of his records from [facility] and depending on when the last lumbar [...] for a lumbar MRI without contrast at [facility] as soon as possible and for them to bring the CD to our office after it is complete for Dr. Clark to review to confirm his surgical plan. PLAN: Lumbar MRI without contrast Not available 06/07/2024 15:27:04 08/05/2024 08/05/2024 Mr. [...] contr ast No observ ation record ed. [email or web address] [facility] [address], [place], [address], 06/09/2024 08:38:22 06/08/1911/25/2023 MRI, lumba r spine , w/wo contr ast No observ ation record ed. [email or web address] [facility] [address], [place], [address], 06/09/2024 08:38:58 06/23/19 25 06/22/2024 MRI, lumba r spine , w/o contr ast No observ ation record ed. [email or web address] Not Available 08:47:50 Result Notes None recorded. Procedures Surgical History Date Name Laterality Status Provider Name and Address Organization Details Recorded Time Epidural Blood Patch - Rosales completed KATHRIN FIELDS MD [address] [place] [address], [phone], [facility] 08/05/2024 11:26:54 Unlisted px hands/fingers completed [facility] 01/12/2018 14:42:22 Back Surgery completed [facility] 01/19/2024 08:11:42 Imaging Results None recorded. Procedure Notes None recorded. Medical Equipment None Reported. Allergies Allergen ID Allergen Name Allergen Category Reaction Reaction Severity Criticality Documentation Date Start Date Code Code System Note Provider Name and Address Organization Details Recorded Time 673311 lidocaine medicatio n rash mild low 08/05/2024 6387 RxNorm Leesa King [facility] 08:58:49 Medications Name Sig Start [...] Updated DateTime 06/07/2024 177.8 cm 26.4 kg/m2 84088 g 128 mm[Hg] 84 mm[Hg] Vandana Benitez [facility] 08:20:11 Date Recorded Body height Provider Name an d Address Organization Details Last Updated DateTime 08/05/2024 177.8 cm Angelinaamalia Maddox [facility] 08/05/2024 08:42:17 Date Recorded Body height Body mass index (BMI) Body weight Systolic blood pressure Diastolic blood pressure Provider Name and Address Organization Details Last Updated DateTime 01/19/2024 177.8 cm 26.4 kg/m2 73666 g 132 mm[Hg] 82 mm[Hg] Angelina Maddox [facility] 08:17:53 Social History Question Answer Notes LastModified by Organizat ion Details LastModified Time Tobacco Smoking Status Current Every Day Smoker Angelina Maddox [facility] 01/12/2018 14:42:05 What Was The Date [...] SNOMED-CT Code Diagnosis ICD10 Code Diagnosis Note [id number] TERESA CLARK MD [facility] [address] [place] [address] 01/12/2018 13:55:10 01/13/2018 14:50:47 Lumbar radiculopathy 780801375 M54.16 [id number] TERESA CLARK MD [facility] [address] [place] [address] 03/16/2018 13:39:01 03/20/2018 08:46:57 Postoperative care [id number] Z48.89 [id number] TERESA CLARK MD [facility] [address] [place] [address] 01/19/2024 08:01:43 01/20/2024 04:47:20 Lumbar radiculopathy 149351738 M54.16 [id number] MONET JEFFREY TUCKER, COST ESTIMATING MANAGER [facility] [address] [place] [address] 06/07/2024 07:52:49 06/08/2024 06:06:14 Lumbar radiculopathy 891540936 M54.16 [id number] TERESA CLARK MD SURGERY SCHEDULE [address] [place] [address] 07/02/2024 11:46:09 07/07/2024 06:49:58 [id number] TERESA CLARK MD [facility] [address] [place] [address] 08/05/2024 08:33:57 08/06/2024 04:45:56 Postoperative visit [id number] Z48.89 [id number] KATHRIN FIELDS MD [facility] [facility] PROFESSIO NAL CHARGES [address] [facility], [address] [place] [address] 08/05/2024 09:37:18 08/05/2024 11:34:26 Post dural puncture headache [id number] G97.1 Health Concerns Section Related Observation LastModified by Organization Detai ls LastModified Time None Recorded Concern Status LastModified by Organization Details LastModified Time None Recorded Advance Directives Directive None Recorded Payers Insurance Date Sequence Insurance Name Policy Number Policy Long Covered Member ID Long Member ID Guarantor Name 08/30/2024 1 [place] (MEDICARE REPLACEMENT HMO) [id number] Hardy De Jesus [id number] Hardy De Jesus 10/27/2023 1 [place] [id number] Umm De Jesus [id number] Hardy De Jesus 08/30/2024 1 [employer] (MEDICARE REPLACEMENT/AD VANTAGE - PPO) Hardy De Jesus [id number] Hardy De Jesus Notes Date Note Type [...] a right hip injection at Dr. Longo's [facility] office tomorrow. TERESA CLARK MD [facility] [place], [address], [facility] 01/22/2024 11:18:31 06/07/2024 text/html Mr. De Jesus is a 73-year-old man who returns to the office after last being seen 01/19/2024 with continued right sided low back and lower extremity symptoms. He has previously had a right L5-S1 discectomy with Dr. Clark on 02/06/2019. MONET CEBALLOS, ANTONIO [address] [place] [address], [phone], [facility] 06/07/2024 15:27:15 08/05/2024 text/html Mr. De Jesus [...] a posterior cervical headache. TERESA CLARK MD [facility] [place], [address], [facility] 08/05/2024 08:49:46
--- OUTSIDE RECORDS SUMMARY | 2024-09-09 08:21 | XMS_ITS | Encounter Summary ---
Author Organization [employer] ([place], [place], [place]) Address [address] [place] [address] Care Team Providers Care Environmental Protection Forester Name Role Phone Michael Pal MD Primary Care Provider [phone] Encounter Details Date Type Department Care Team (Late st Contact Info) Description 02/06/2018 Transcribed Document [facility] Neurology - [facility] [address] [address] Estevan Husain MD [address] [place], [place] [id number] Social History Tobacco Use Types Packs/Day Years [...] on filedocumented in this encounter Care Teams Environmental Protection Forester Relationship Specialty Start Date End Date Michael Pal MD [address] [facility] [address] [place] [phone] PCP - General Family Medicine 06/17/24 documented as of this encounter
--- OUTSIDE RECORDS SUMMARY | 2024-09-09 08:21 | XMS_ITS | Clinical Summary ---
Author Organization [email or web address] ([place], [place], [place], [place]) Address [address] [place] [address] Care Team Providers Care Rocket Motor Tester Name Role Phone Michael Pal MD Primary Care Provider [phone] Allergies Active Allergy Reactions Criticality Noted Date [...] Description 06/24/2024 1:01 PM EDT Anesthesia Event [facility] Operating Room 1 [place] [address] Zackery Prado MD Cornea, Mihaela, MD 06/24/2024 1:00 PM EDT - 06/24/2024 3:12 PM EDT Surgery [facility] Operating Room 1 [place] [address] Estevan Husain MD (RT SIDED L4-L5 MICROSCOPIC DECOMPRESSION) 06/24/2024 10:39 AM EDT - 06/24/2024 4:33 PM EDT Hospital Encounter [facility] Operating Room 1 [place] [address] Estevan Husain MD Discharge Disposition: Home or Self Care 06/24/2024 Travel 06/17/2024 7:23 AM EDT - 06/17/2024 11:59 PM EDT Hospital Encounter [facility] Preadmission Testing 1 [place] [address] Estevan Husain MD Preop testing (Primary Dx) [...] 1 PM EDT pt using incentive spirometry, 4880-3068 Inhaled Oxygen Concentration - - Weight 82.8 [...] ANESTHESIA INTUBATION Routine 06/24/2024 1:07 PM EDT RI SHORT FACETECTOMY & FORAMOTOMY 1 VRT SGM [...] attempted: 0 Additional Comments Atraumatic intubation Result [facility] Zackery Prado MD ANESTHESIA ORDERABLES Edit ed Result - Final * Glucose, Nova Meter (06/24/2024 11:29 AM EDT) POC-GLUCOSE 101 70 - 110 mg/dL 06/24/2024 11:30 AM EDT [facility] Comment: In the event of poor peripheral blood flow, venous or arterial blood should be used due to the potential of erroneous results. No action Require Closing Coordinator [id number] 06/24/2024 11:30 AM EDT [facility] Blood WHOLE BLOOD / Unknown 06/24/2024 11:29 AM EDT 06/24/2024 11:29 AM EDT Narrative [facility] - 06/24/2024 11:30 AM EDT Closing Coordinator ID is - [id number] us Estevan Husain MD POINT OF CARE TEST ORDERABLES Fi nal Result Performing Organization Address City/[facility]/ZIP Co de Phone Number [facility] 1 [place] [address], [facility] [phone] * (ABNORMAL) Urinalysis without Microscopic (06/17/2024 9:13 AM EDT) Color, UA Colorless 06/17/2024 9:22 AM EDT [facility] Clarity, UA Clear Clear 06/17/2024 9:22 AM EDT [facility] Specific [place], UA 1.005 1.005 - 1.030 06/17/2024 9:22 AM EDT [facility] pH, UA 5.5(L) 6.0 - 8.0 06/17/2024 9:22 AM EDT [facility] Leukocytes, UA Negative Negative 06/17/2024 9:22 AM EDT [facility] Nitrite, UA Negative Negative 06/17/2024 9:22 AM EDT [facility] Protein, UA Negative Negative 06/17/2024 9:22 AM EDT [facility] Glucose, UA Normal Normal 06/17/2024 9:22 AM EDT [facility] Ketones, UA Negative Negative 06/17/2024 9:22 AM EDT [facility] Urobilinogen, UA Normal Normal 06/17/2024 9:22 AM EDT [facility] Bilirubin, UA Negative Negative 06/17/2024 9:22 AM EDT [facility] Blood, UA Negative Negative 06/17/2024 9:22 AM EDT [facility] Specimen Source Urine, Clean Catch 06/17/2024 9:22 AM EDT [facility] Urine URINE SPECIMEN COLLECTION, CLEAN CATCH / Unknown 06/17/2024 9:13 AM EDT 06/17/2024 9:13 AM EDT us Estevan Husain MD URINE ORDERABLES Final Result Performing Organization Address [facility]/ZIP Co de Phone Number [facility] [address] [phone] * (ABNORMAL) CBC - Hemogram (SJ-BKR) (06/17/2024 8:13 AM EDT) [facility] WBC 9.2(H) 4.2 - 9.1 K/ L 06/17/2024 9:18 AM EDT [facility] RBC 4.06(L) 4.63 - 6.08 M/ L 06/17/2024 9:18 AM EDT [facility] Hemoglobin 13.6(L) 13.7 - 17.5 GM/DL 06/17/2024 9:18 AM EDT [facility] Hematocrit 41.0 40.1 - 51.0 % 06/17/2024 9:18 AM EDT [facility] MCV 101(H) 79 - 92 fL 06/17/2024 9:18 AM EDT [facility] MCH 33.5(H) 25.7 - 32.2 pg 06/17/2024 9:18 AM EDT [facility] MCHC 33.2 32.3 - 36.5 GM/DL 06/17/2024 9:18 AM EDT [facility] RDW 12.3 11.6 - 14.4 % 06/17/2024 9:18 AM EDT [facility] Platelets 254 140 - 375 K/CU MM 06/17/2024 9:18 AM EDT [facility] MPV 9.8 9.4 - 12.4 fL 06/17/2024 9:18 AM EDT [facility] Blood Venipuncture / Unknown 06/17/2024 8:13 AM EDT 06/17/2024 9:14 AM EDT us Estevan Husain MD LAB BLOOD ORDERABLES Final Resul t [facility] [address] [phone] * (ABNORMAL) Basic Metabolic Panel (06/17/2024 8:13 AM EDT) [facility] Sodium 141 136 - 145 meq/L 06/17/2024 9:38 AM EDT [facility] Potassium 4.2 3.4 - 5.1 meq/L 06/17/2024 9:38 AM EDT [facility] CO2 23 22 - 29 meq/L 06/17/2024 9:38 AM EDT [facility] Chloride 109 98 - 112 meq/L 06/17/2024 9:38 AM EDT [facility] Glucose 59(L) 82 - 115 mg/dL 06/17/2024 9:38 AM EDT [facility] BUN 9.6 8.4 - 25.7 mg/dL 06/17/2024 9:38 AM T [facility] Creatinine 0.82 0.72 - 1.25 mg/dL 06/17/2024 9:38 AM EDT [facility] BUN/Creatinine 12 8 - 20 06/17/2024 9:38 AM T [facility] Calcium 9.0 8.4 - 10.2 mg/dL 06/17/2024 9:38 AM EDT [facility] Anion Gap 13(H) 4 - 12 06/17/2024 9:38 AM T [facility] eGFR (mL/min/1.73m2) 93 >=60 mL/min/1.7 3m2 06/17/2024 9:38 AM EDT [facility] Osmolality Calc 278.0 mOsm/kg 9:38 AM T [facility] Blood Venipuncture / Unknown 06/17/2024 8:13 AM EDT 06/17/2024 9:14 AM EDT us Estevan Husain MD LAB BLOOD ORDERABLES Final Resul t [facility] [address] [phone] from Last 3 Months Insurance [id number] (Home) [address] [place] [address] [facility] ACC[facility] H[facility] Advance Directives For more information, please contact: [phone] Documents on File Type Date Recorded Patient Cake Inspector Expl anation Advance Directives and Livin g Will 06/24/2024 10:45 AM Care Teams Rocket Motor Tester Relationship Specialty Start Date End Date Michael Pal MD [address] [facility] [address] [place] [address] PCP - General Family Medicine 06/17/24
--- NOTE | 2024-09-09 08:28 | MR_ITS ---
FINAL REPORT CLINICAL HISTORY: STAT LUMBAR RADICULOPATHY pain with right hip pain sx june dull headaches x 1 week after surgery pt also had blood patch after sx COMPARISON: 11/25/2023 FINDINGS: Multiplanar MR imaging of the lumbar spine was performed without contrast. On the sagittal T2-weighted images, there is abnormal decreased signal throughout the lumbar discs. The vertebrae are of normal height. The vertebral alignment is normal. L1-2: There is no significant canal stenosis or neural foraminal narrowing. L2-3: There is no significant canal stenosis or neural foraminal narrowing. L3-4: Mild diffuse disc bulge with mild bilateral neuroforaminal narrowing. L4-5: Mild diffuse disc bulge. Asymmetric left facet hypertrophy is present. There has been an interval right laminectomy. There is fluid identified within the laminectomy defect measuring 5.5 x 2.2 cm in AP and transverse dimensions. There is a smaller fluid collection which resides in the right side of the spinal canal and appears to partially compress the right side of the thecal sac. This fluid collection measures 2.0 x 0.9 cm. L5-S1: Minimal midline disc protrusion with mild bilateral neuroforaminal narrowing. IMPRESSION: Interval right L4-5 laminectomy with seroma in the surgical defect. Intraspinal fluid collection on the right at L4-5 with mild to moderate compromise of the spinal canal. This may also represent a seroma. Reviewed, Interpreted and Dictated by Jim Gutierrez MD Transcribed by Stephania Cross Authenticated and [facility]
--- NOTE | 2024-09-09 10:00 | US_ITS ---
PROCEDURE INFORMATION: Exam: US Soft Tissue Head and Neck, Soft Tissue Exam date and time: 09/09/2024 10:02 AM Age: 74 years old Clinical indication: Other: Lump on lumbar SX incision; Prior surgery; Surgery date: 1-6 months; Surgery type: Lumbar surgery in June 2024 TECHNIQUE: Imaging protocol: Real-time ultrasound scan of the head and neck with image documentation. Exam focused on the soft tissue in the region of clinical concern. COMPARISON: CT LUNG SCREENING 02/21/2023 3:12 PM FINDINGS: Lymph nodes: No lymphadenopathy. Soft tissues: There is an anechoic collection measuring 4.6 x 2.9 x 3.2 cm. There is a small sinus tract that appears to communicate with the superficial skin. IMPRESSION: There is an anechoic collection with a small sinus tract that appears to communicate with the skin. Considerations include seroma versus hematoma.
== END 2024-09-09 23:59 | disposition home or self-care (01) ==
LOC: RAD 08:19
PROVIDERS: PCP Family Medicine; Visit Provider Nurse Practitioner
DX: G97.63 Postprocedural seroma of a nervous system organ or structure following a nervous system procedure (principal); M48.061 Spinal stenosis, lumbar region without neurogenic claudication; R93.89 Abnormal findings on diagnostic imaging of other specified body structures; M54.16 Radiculopathy, lumbar region; L76.82 Other postprocedural complications of skin and subcutaneous tissue; T81.89XA Other complications of procedures, not elsewhere classified, initial encounter; R60.9 Edema, unspecified; Z98.890 Other specified postprocedural states
CPT/HCPCS: 72148; 76604